=== PATIENT | female | born 1940 | race Caucasian/White ===

== ENCOUNTER → 2016-06-17 | Outpatient (CLI) | payer OTHER ==
[~2016-06-17] MED LIST: ASPI81TA28 PO; ATEN50TA8 PO; BROM0.07 OPL; FRS/40 PO; POTA-335 PO; PRED1SUS3 OPL
[2016-06-17 17:49] LABS: BLOOD UREA NITROGEN 14 mg/dl (7-18); BUN/CREATININE RATIO 16.8 (10-20); CALCIUM 8.9 mg/dl (8.5-10.1); CARBON DIOXIDE 28 mmol/L (21-32); CHLORIDE 105 mmol/L (98-107); CREATININE 0.86 mg/dl (0.60-1.20); GLUCOSE 124 mg/dl (70-99); POTASSIUM 3.7 mmol/L (3.5-5.1); SODIUM 143 mmol/L (136-145)
[2016-06-17 17:54] LABS: URIC ACID 7.2 mg/dl (2.6-7.2)
[2016-06-18 05:53] LABS: ESTIMATED AVERAGE GLUCOSE 128 mg/dl; HA1C FLAG Normal (Normal)
== END | disposition home or self-care (01) ==
LOC: C.LABPVFM 10:55
PROVIDERS: ATTEND Nurse Practitioner
DX: R73.01 Impaired fasting glucose (principal); M10.9 Gout, unspecified

== ENCOUNTER → 2016-12-18 | Outpatient (CLI) | payer OTHER ==
[2016-12-18 13:08] LABS: ESTIMATED AVERAGE GLUCOSE 146 mg/dl; HA1C FLAG Normal (Normal)
[2016-12-18 13:38] LABS: BLOOD UREA NITROGEN 14 mg/dl (7-18); CALCIUM 8.9 mg/dl (8.5-10.1); CARBON DIOXIDE 28 mmol/L (21-32); CHLORIDE 105 mmol/L (98-107); CREATININE 0.75 mg/dl (0.60-1.20); GLUCOSE 143 mg/dl (70-99); POTASSIUM 3.6 mmol/L (3.5-5.1); SODIUM 141 mmol/L (136-145)
[2016-12-18 13:41] LABS: CHOLESTEROL 149 mg/dl (0-200); CHOLESTEROL/HDL RATIO 3.9; HDL CHOLESTEROL 38 mg/dl; LDL CHOLESTEROL CALCULATED 61 mg/dl; TRIGLYCERIDES 251 mg/dl (0-150); VERY LOW DENSITY LIPOPROT CALC 50 mg/dl
== END | disposition home or self-care (01) ==
LOC: C.LABPVFM 10:39
PROVIDERS: ATTEND Nurse Practitioner
DX: I10 Essential (primary) hypertension (principal); R73.01 Impaired fasting glucose

== ENCOUNTER → 2017-05-15 | Outpatient (CLI) | payer OTHER ==
[2017-05-15 13:04] LABS: ESTIMATED AVERAGE GLUCOSE 137 mg/dl; HA1C FLAG Normal (Normal)
[2017-05-15 13:11] LABS: BLOOD UREA NITROGEN 18 mg/dl (7-18); BUN/CREATININE RATIO 23.8 (10-20); CALCIUM 8.9 mg/dl (8.5-10.1); CARBON DIOXIDE 28 mmol/L (21-32); CHLORIDE 102 mmol/L (98-107); CREATININE 0.76 mg/dl (0.60-1.20); GLUCOSE 138 mg/dl (70-99); POTASSIUM 3.5 mmol/L (3.5-5.1); SODIUM 138 mmol/L (136-145)
== END | disposition home or self-care (01) ==
LOC: C.LABPVFM 10:39
PROVIDERS: ATTEND Nurse Practitioner
DX: I10 Essential (primary) hypertension (principal); R73.01 Impaired fasting glucose

== ENCOUNTER → 2017-10-05 | Outpatient (CLI) | payer OTHER ==
[2017-10-05 17:43] LABS: BLOOD UREA NITROGEN 18 mg/dl (7-18); CALCIUM 9.6 mg/dl (8.5-10.1); CARBON DIOXIDE 28 mmol/L (21-32); CREATININE 0.78 mg/dl (0.60-1.20); GLUCOSE 102 mg/dl (70-99); SODIUM 139 mmol/L (136-145)
== END | disposition home or self-care (01) ==
LOC: C.LABPVFM 15:20
PROVIDERS: ATTEND Nurse Practitioner
DX: I10 Essential (primary) hypertension (principal); R73.01 Impaired fasting glucose

== ENCOUNTER 2020-01-09 08:52 | Inpatient (IN) ==
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
[~2020-01-09 08:52] MED LIST changes: -ASPI81TA28 PO; -ATEN50TA8 PO; -BROM0.07 OPL; +CEFAZOLIN 2000MG 2,000 MG/15 ML SYR IV SCH; +CLINDAMYCIN 900 MG in DEXTROSE 5% 50 ML IV SCH; -FRS/40 PO; +LR 15ML/HR IV SCH; +MIDAZOLAM HCL 1 MG/ML 2ML VIAL ONE; -POTA-335 PO; -PRED1SUS3 OPL; +[UNRECOGNIZED DRUG - REMARK] SCH; +fentaNYL citrate 100 MCG/2 ML VIAL ONE
[2020-01-09] MEDS ORDERED: ISOSULFAN BLUE 10 MG/ML VIAL 5 ML ONE (09:32)
[2020-01-09] MEDS ORDERED: PROPOFOL IV EMULSION 10 MG/ML 20 ML VIAL IV ONE (10:43)
[2020-01-09] MEDS ORDERED: LIDOCAINE HCL 2% 2 ML VIAL/AMP(20MG/ML) INFIL ONE (10:43)
--- NOTE | 2020-01-09 10:45 | Nuclear Medicine Report ---
NM sentinel node w breast img LYMPHOSCINTIGRAPHY CLINICAL HISTORY: Bilateral breast cancer. PROCEDURE: RIGHT BREAST: Using standard sterile technique, 4 intradermal and one deep injection of 0.444 mCi of Lymphoseek was placed in the right breast. The patient tolerated the procedure well. There were no immediate compli cations. The patient was subsequently transported to the surgical suite. Images demonstrates 5 foci o f tracer uptake in a periareolar distribution. No uptake within the axilla at time of imaging. LEFT BREAST: Using standard sterile technique, 4 intradermal and one deep injection of 0.447 mCi of Lymphoseek was placed in the left breast. The patient tolerated the procedure well. There were no immediate complic ations. The patient was subsequently transported to the surgical suite. Images demonstrates 5 foci of tracer uptake in a periareolar distribution. No uptake within the axilla at time of imaging. IMPRESSION: 1. Bilateral breast lymphoscintigraphy. 2. Tracer activity within the periareolar distributions are noted bilaterally at time of imaging with out appreciable axillary uptake. ACT 112: Negative or not required by law. Electronically signed by: Naif Phoenix M.D. 01/09/2020 10:44 AM
--- NOTE | 2020-01-09 11:10 | History & Physical Bridge Note ---
Date of Service January 09, 2020 History & Physical Bridge Note I have examined the patient, reviewed the History & Physical and in the interval since the performance of the History & Physical I have noted the following changes of clinical significance: no changes noted
[2020-01-09] MEDS ORDERED: ATROPINE SULFATE 0.1 MG/ML 10ML SYR IV PRN (11:40)
[2020-01-09] MEDS ORDERED: ONDANSETRON INJ 2 MG/ML 2 ML VIAL IV PRN (11:40)
[2020-01-09] MEDS ORDERED: ePHEDrine sulfate 50 MG/ML AMP IV PRN (11:40)
[2020-01-09] MEDS ORDERED: fentaNYL citrate 100 MCG/2 ML VIAL IV PRN (11:40)
[2020-01-09] MEDS ORDERED: fentaNYL citrate 100 MCG/2 ML VIAL ONE ×2 (12:58→14:56)
[2020-01-09] MEDS ORDERED: ONDANSETRON INJ 2 MG/ML 2 ML VIAL ONE (12:58)
[2020-01-09] MEDS ORDERED: BUPIVACAINE 0.5 % 5 MG/1 ML MPF 30ML VIAL ONE (12:58)
[2020-01-09] MEDS ORDERED: GLYCOPYRROLATE 0.2 MG/ML VIAL ONE ×2 (14:27→15:27)
[2020-01-09] MEDS ORDERED: ePHEDrine sulfate 50 MG/ML SYR ONE (15:27)
[2020-01-09] MEDS ORDERED: PHENYLEPHRINE 100MCG/ML 5ML SYR ONE (15:27)
[2020-01-09] MEDS ORDERED: NEOSTIGMINE METHYLSULFATE 5 MG/5 ML SYR ONE (15:27)
--- NOTE | 2020-01-09 16:12 | Post Operative Brief Note ---
Immediate Post Op Note v1 Date of Surgery January 09, 2020 Pre & Post Diagnosis Operation Date: 01/09/20 11:00 Pre-Op Diagnosis: Bilateral Malignant Neoplasm of Breast in Female Post-Op Diagnosis: Bilateral Malignant Neoplasm of Breast in Female I identified the patient and participated in the time-out.: Yes Procedure Operation Date: 01/09/20 11:00 Actual Procedures p Bilateral Mastectomy with Bilateral [place] Lymph Node Biopsy(Bilateral) - Anam Kingsley MD Surgeon Anam Kingsley MD Primary Grade Teacher Ce Schmitz PA-C Estimated Blood Loss 25 Findings Consistent with Post-Op Diagnosis Drains Alejandro-Gabriel Drain (x2)
--- NOTE | 2020-01-09 16:54 | Anesthesiology Progress Note ---
Date of Service January 09, 2020 Anesthesia Post Procedure Vital Signs Vital Signs: Temp Pulse Pulse Resp BP BP Pulse Ox 01/09/20 16:50 74 16 146/64 H 95 01/09/20 16:40 71 16 154/64 H 96 01/09/20 16:30 75 14 147/77 H 98 01/09/20 16:20 36.6 C 78 14 140/84 98 01/09/20 09:49 36.8 C 71 18 169/73 H 95 Transfer of Care Handoff Completed per policy Notes Mental Status: alert / awake / arousable Patient Amnestic to Procedure: Yes Nausea / Vomiting: adequately controlled Pain: adequately controlled Airway Patency, RR, SpO2: stable & adequate BP & HR: stable & adequate Hydration State: stable & adequate Anesthetic Complications: no major complications apparent and Pt Satisfied with anesthetic care
[2020-01-09] MEDS: SODIUM CHLORIDE 0.9% 1000ML 1,000 ML IV SCH (17:45)
[2020-01-09] MEDS: MoRPHine SULFATE 2 MG/ML CARP IV PRN ×2 (17:46→22:34)
--- NOTE | 2020-01-09 19:04 | Operative Report (OR) ---
DATE OF OPERATION: 01/09/2020 PREOPERATIVE DIAGNOSIS: Bilateral carcinoma of the breast. POSTOPERATIVE DIAGNOSIS: Bilateral carcinoma of the breast. PROCEDURE: Bilateral mastectomy with bilateral sentinel lymph node biopsy and excision of the previously biopsied lymph nodes as marked by Piedad Hat Block Maker. SURGEON: Anam Kingsley MD. BROOMCORN SCRAPER: Ce Schmitz PA-C. FINDINGS: The right-sided mass measured 9-10 cm, was about the size of an orange. It was located in the medial aspect of the breast. It was not fixed to the chest wall, although some of the muscle seemed to be adherent to the fascia. I did not see gross extension through the prepectoral fascia, but I did remove some of the muscle with the specimen. There was no evidence of extension through the skin. I did not encounter any gross tumor during the dissection. The left sentinel lymph node had an in-vivo count of 17 and ex-vivo count of 417. There was only 1 lymph node identified and the background counts were 17. The right breast mass was more central. It did not grossly penetrate through the prepectoral fascia and it was not at all encountered during the dissection. The right sentinel lymph node had an in-vivo count of 11 and an ex-vivo count of 557 with background counts of 19. The Piedad Hat Block Maker was used to identify the previously biopsied lymph nodes. They had been negative by FNA. Radiologic tissue evaluation was performed on the 2 Piedad Hat Block Maker lymph nodes and the probes and previously placed clips were within each of those lymph nodes. The sentinel lymph nodes and the previously biopsied lymph nodes were not the same on either side. TECHNIQUE: The patient was sent for administration of the radiotracer in the periareolar area bilaterally. She was then brought to the operating room and placed on the operating table, given general anesthesia. The area was prepped and draped in the usual sterile fashion. The periareolar areas were injected with methylene blue on each side. There was no blue to any of the sentinel lymph nodes, although there were some blue lymph node channels identified during the dissection. The left side was approached first. The incision was sketched on the skin and the superior and inferior portions of the elliptical incision were made. The superior flap was created first maintaining an even thickness to the flap. It was dissected up to the clavicle and extended from the lateral border of the sternum over to the lateral border of the dissection. That then allowed me to enter the axilla. The Neoprobe was used to identify the sentinel lymph node with counts as noted above. Dissection of the axilla was performed bluntly and sharply where appropriate until the sentinel lymph node could be identified. [place] lymph node was away from the surrounding tissues using the LigaSure and sent intact. I then used the Piedad Hat Block Maker probe to identify the lymph node containing the Piedad Hat Block Maker as well as the previously placed clip. This was away from the surrounding tissues using sharp, blunt and LigaSure dissection where appropriate. Hemostasis was obtained using electrocautery at all times. The Neoprobe was then placed back into the axilla and the axilla was investigated. The background counts were below the 10% of the ex-vivo count of the sentinel lymph node. There were no other sentinel lymph nodes identified. The inferior portion of the incision was then made and the inferior flap was created keeping and maintaining an even thickness to the flap. This was carried down to just below the inferior breast crease. The prepectoral fascia was then peeled off the muscle underneath using blunt and cautery dissection where appropriate. Hemostasis was obtained at all times using cautery and the LigaSure. Dissection was carried from medial to lateral and once I identified and peeled the prepectoral fascia off the lateral border of the pectoralis major muscle, I then performed further dissection down along the chest wall and finished the lateral dissection away from the subcutaneous tissue. That breast tissue was marked with a white stitch on the superior edge and a blue stitch on the lateral edge. Meticulous hemostasis was obtained. The wound was irrigated. A separate stab incision was made inferolateral to the incision, through which a 10 mm Alejandro-Gabriel drain was brought in and laid across the chest wall and secured with a 3-0 nylon at the skin level. That wound was closed then with interrupted 2-0 Vicryl in the deep tissues, a running 3-0 Vicryl in the superficial subcutaneous tissue and a 4-0 Monocryl in a subcuticular fashion for the skin. That closure was performed by the physician economist research assistant. While she was performing that closure, I turned my attention to the right side. Because the mass was taking up the medial portion of the breast, I widened the ellipse and that extended from the lateral border of the sternum out to the infraaxillary area in the mid axillary line. The superior and inferior incisions were made and a superior flap was created. The superior flap was kept quite thin in order to assure a negative margin anteriorly, although that incision was made superior to the superior most palpable portion of the mass. That dissection was also carried from the lateral border of the sternum up to the clavicle and then laterally. That then allowed me to enter the axilla on the right. The axilla was entered and the Neoprobe was used to identify the sentinel lymph node with counts as stated above. When it was identified after using blunt and sharp dissection to expose, it was removed using the LigaSure. It was sent intact. I then used the probe from the Piedad Hat Block Maker to identify the previously biopsied lymph node. Once that was identified and grasped, it was using the LigaSure as well. The Neoprobe was then placed back into the axilla. There were no counts greater than 10% of the ex-vivo count of the sentinel lymph node. There were no other sentinel lymph nodes identified. Attention was then turned to completing the mastectomy. The inferior incision was deepened and the inferior flap was created again keeping it thin in order to preserve the anterior margin, especially medially. The dissection was carried down to the anterior rectus fascia. The prepectoral fascia was then peeled off the pectoralis major muscle beginning medially. As I worked laterally and I got to the area of the tumor, I finished the superior, inferior and then the lateral dissection and then peeled some of the muscle up where it seemed to be adherent, although there was no evidence of gross penetration through the fascia. That muscle was adherent; the muscle was divided and it was included en bloc with the specimen. Meticulous hemostasis was then obtained using cautery and the LigaSure. The wound was irrigated and the irrigation removed. A separate stab incision was made inferolateral to the incision, through which a 10 mm Alejandro-Gabriel drain was placed across the chest wall and secured with a 3-0 nylon at the skin level. That wound was then also closed with interrupted 2-0 Vicryl in the deep tissues, running 3-0 Vicryl in the superficial subcutaneous tissue and running 4-0 Monocryl in a subcuticular fashion for the skin. The skin of both incisions was anesthetized with 0.25% Marcaine. The skin was then cleansed, dried, benzoin placed, Steri-Strips applied and a dressing was placed. The estimated blood loss was 25 mL. Sponge, needle and instrument counts were correct prior to closure. The patient tolerated the surgical procedure without complication and was transferred to recovery. The physician economist research assistant was present during the entire case and helped with prepping, draping, retraction, node identification and closure. I attest to the content of the Intraoperative Record and any orders documented therein. Any exceptions are noted below. ADRIANAD
[2020-01-09] MEDS: OXYCODONE/ACETAMINOPHEN 5mg/325mg TAB PO PRN (19:15)
[2020-01-09] MEDS ORDERED: AREDS2 PO SCH (21:00)
[2020-01-10] MEDS: MoRPHine SULFATE 2 MG/ML CARP IV PRN (05:24)
[2020-01-10] MEDS ORDERED: CLINDAMYCIN 900 MG in DEXTROSE 5% 50 ML IV SCH (06:00)
[2020-01-10] MEDS ORDERED: CLINDAMYCIN PHOS 900 MG/6 ML VIAL IV SCH (06:00)
--- NOTE | 2020-01-10 06:37 | Surgery Progress Note ---
Date of Service January 10, 2020 Assessment & Plan (1) Bilateral breast cancer: Status post bilateral mastectomy with bilateral sentinel lymph node biopsy and excision of previously biopsied lymph nodes. Doing well Would keep 1 more night considering still requires IV pain medicine Encouraged ambulation Subjective Postoperative day #1, status post bilateral mastectomy with sentinel lymph node biopsy and excision of Piedad disciplinary hearing officer identified lymph nodes Doing well Having some pain that is controlled with IV analgesics No nausea or vomiting ARLENE on the left had 60 out yesterday and 40 for 1st shift today ARLENE on the right had 75 out yesterday and 30 for 1st shift today Physical Exam Physical Exam: Chest wall dressings are clean and dry No erythema Results & Data Vital Signs (Past 12 Hours) Vital Signs Temp Pulse Pulse Resp BP BP Pulse Ox 01/10/20 06:01 93 01/10/20 05:59 92 01/10/20 05:17 94 01/10/20 03:49 92 01/10/20 03:08 36.8 C 79 18 142/75 H 93 01/10/20 00:34 95 01/10/20 00:25 96 01/09/20 23:30 36.6 C 66 15 144/75 H 94 01/09/20 20:30 36.5 C 76 16 134/70 95 01/09/20 19:31 36.6 C 77 16 150/72 H 96
[2020-01-10] MEDS: METFORMIN HCL 500 MG TAB PO SCH ×2 (08:16→16:18)
[2020-01-10] MEDS: POTASSIUM CHLORIDE 10 MEQ TABCR PO SCH (08:17)
[2020-01-10] MEDS: ATENOLOL 50 MG TABLET PO SCH (08:17)
[2020-01-10] MEDS: FUROSEMIDE 40 MG TAB PO SCH (08:17)
--- NOTE | 2020-01-10 14:45 | Mammography Report ---
SPECIMEN: 01/09/2020 CLINICAL HISTORY: 79-year-old woman with recently diagnosed bilateral breast cancer. She presents for bilateral mastectomy and axillary lymph node sampling. Piedad Cuff Setter Lockstitch reflectors were placed within prev iously biopsied lymph nodes in the right and left axilla. COMPARISON: Comparison is made to exams dated: 01/04/2020 localization, 11/25/2019 fine needle aspirat ion, 11/25/2019 ultrasound biopsy, 11/25/2019 ultrasound biopsy, 11/25/2019 ultrasound biopsy, and 2019 mammogram - [facility]. FINDINGS: Specimen radiographs were performed of the excised right and left axillary lymph nodes. Zaid th specimen radiographs demonstrate lymph nodes, associated orb-shaped biopsy markers and Piedad Cuff Setter Lockstitch reflectors, compatible with successful preoperative localization and subsequent surgical excision. F inal pathology is pending. IMPRESSION: SPECIMEN Bilateral axillary specimen radiographs demonstrate lymph nodes, orb-shaped biopsy markers and Piedad S cout reflectors, compatible with successful preoperative wireless localization and subsequent surgica l excision. Michelle Walker M.D. ay/:01/09/2020 15:04:58 Veterans Services Specialist: OR Technologist, [facility]
[2020-01-10] MEDS: SODIUM CHLORIDE 0.9% 1000ML 1,000 ML IV SCH (19:58)
[2020-01-10] MEDS: OXYCODONE/ACETAMINOPHEN 5mg/325mg TAB PO PRN (23:29)
--- NOTE | 2020-01-11 07:30 | Surgery Progress Note ---
Date of Service January 11, 2020 Assessment & Plan (1) Bilateral breast cancer: Postoperative day #2 status post bilateral mastectomy with bilateral axillary sentinel lymph node biopsy and excision of 2 previously biopsied lymph nodes. Pathology is pending The surgical standpoint doing well. Pain is under better control although not yet ideal. Social service is working on establishing home health nursing for the patient Had decrease in her pulse oximetry last night. Her pulse oximetry has responded to 2 L nasal cannula. I will ask internal medicine to evaluate as well. Subjective Postoperative day #2 status post bilateral mastectomy with bilateral axillary sentinel lymph node biopsy and excision of previously biopsied lymph nodes Pulse oximetry decreased last night. She was placed on initially 4 L of oxygen which brought her saturations into the 90s. She is presently on 2 L nasal cannula and has a pulse oximeter measuring 95% Pain is better controlled Left Alejandro-Gabriel had 105 cc out yesterday and 20 cc over the last shift all serosanguineous Right Alejandro-Garbiel had 90 cc out yesterday and 15 cc out over the last shift all serosanguineous Denies nausea and vomiting Physical Exam Physical Exam: Anterior chest wall: Incisions are clean dry and intact. There is no epidermonecrolysis. There is no erythema. The skin flaps are flat. Respiratory: normal respiratory effort Auscultation: lungs clear to auscultation bilaterally Results & Data Vital Signs (Past 12 Hours) Vital Signs Temp Pulse Resp BP Pulse Ox 01/11/20 05:29 95 01/11/20 05:28 58 L 01/10/20 23:00 94 01/10/20 22:55 36.9 C 81 16 147/72 H 56 L
[2020-01-11] MEDS: ATENOLOL 50 MG TABLET PO SCH (08:39)
[2020-01-11] MEDS: FUROSEMIDE 40 MG TAB PO SCH (08:40)
[2020-01-11] MEDS: POTASSIUM CHLORIDE 10 MEQ TABCR PO SCH (08:40)
[2020-01-11] MEDS: METFORMIN HCL 500 MG TAB PO SCH ×2 (08:40→16:36)
[2020-01-11 09:23] LABS: Basophils # (auto) 0.02 K/uL (0-0.2); Basophils % (auto) 0.2 %; Eosinophils # (auto) 0.06 K/uL (0-0.5); Eosinophils % (auto) 0.5 %; Hematocrit (blood only) 29.1 % (37-47); Hemoglobin 8.8 g/dL (12.0-16.0); Immature Granulocytes # (auto) 0.04 K/uL (0.00-0.02); Immature Granulocytes % (auto) 0.4 %; Lymphocytes # (auto) 1.82 K/uL (1.2-3.4); Lymphocytes % (auto) 16.1 %; Mean Corpuscular Hemoglobin 27.8 pg (25-34); Mean Corpuscular Hgb Conc 30.2 g/dL (32-36); Mean Corpuscular Volume 92.1 fL (80-100); Mean Platelet Volume 9.3 fL (7.4-10.4); Monocytes # (auto) 0.99 K/uL (0.11-0.59); Monocytes % (auto) 8.8 %; Neutrophils # (auto) 8.36 K/uL (1.4-6.5); Platelet Count 235 K/uL (130-400); RDW Coefficient of Variation 16.7 % (11.5-14.5); Red Blood Count 3.16 M/uL (4.2-5.4); White Blood Count 11.29 K/uL (4.8-10.8)
[2020-01-11 09:50] LABS: BUN Creatinine Ratio 16.6 (10-20); Calcium 8.6 mg/dl (8.5-10.1); Creatinine Clr Calc Pharmacy 62.3 ml/min; Est GFR (African American) 79.5; Est GFR (Non-African American) 68.6; Potassium 3.4 mmol/L (3.5-5.1)
--- NOTE | 2020-01-11 10:19 | XRay Report ---
XR chest 2V PA/lateral CLINICAL HISTORY: hypoxia dyspnea COMPARISON STUDY: No previous studies for comparison. FINDINGS: Parenchymal infiltrate left lower lobe. Minimal infiltrative process right pulmonary apex. Lungs otherwise appear clear. IMPRESSION: 1. Infiltrate left lower lobe. 2. Minimal infiltrative change right apex. 3. These findings should be followed to complete resolution ACT 112: Negative or not required by law. The above report was generated using voice recognition software. It may contain grammatical, syntax or spelling errors. Electronically signed by: Anam Farley M.D. 01/11/2020 10:17 AM
[2020-01-11] MEDS ORDERED: POTASSIUM CHLORIDE 20 MEQ TABCR PO ONE (11:00)
[2020-01-11] MEDS ORDERED: PIPERACILL/TAZOBAC CONSULT ACTIVE PRN (11:52)
[2020-01-11] MEDS ORDERED: SODIUM CHLORIDE 0.65% NA SOLN 45 ML (OCEAN) PRN (12:04)
[2020-01-11] MEDS ORDERED: PIPERACILLIN/TAZOBACTAM 4.5 GM in DEXTROSE 5% 100 ML IV ONE (12:15)
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
[2020-01-11] MEDS ORDERED: FEXOFENADINE HCL 180 MG TAB PO PRN (16:29)
[2020-01-11] MEDS: SODIUM CHLORIDE 0.9% 1000ML 1,000 ML IV SCH (18:37)
[2020-01-11] MEDS: PIPERACILLIN/TAZOBACTAM 4.5 GM in DEXTROSE 5% 100 ML IV SCH (18:38)
[2020-01-11] MEDS: MIRTAZAPINE TAB 15 MG TAB PO SCH (20:08)
[2020-01-12] MEDS: PIPERACILLIN/TAZOBACTAM 4.5 GM in DEXTROSE 5% 100 ML IV SCH (01:48)
[2020-01-12 06:48] LABS: Basophils # (auto) 0.03 K/uL (0-0.2); Basophils % (auto) 0.3 %; Eosinophils # (auto) 0.18 K/uL (0-0.5); Eosinophils % (auto) 1.7 %; Hematocrit (blood only) 29.1 % (37-47); Hemoglobin 8.8 g/dL (12.0-16.0); Immature Granulocytes # (auto) 0.04 K/uL (0.00-0.02); Immature Granulocytes % (auto) 0.4 %; Lymphocytes # (auto) 1.49 K/uL (1.2-3.4); Lymphocytes % (auto) 14.4 %; Mean Corpuscular Hemoglobin 27.6 pg (25-34); Mean Corpuscular Hgb Conc 30.2 g/dL (32-36); Mean Corpuscular Volume 91.2 fL (80-100); Mean Platelet Volume 9.7 fL (7.4-10.4); Monocytes # (auto) 1.07 K/uL (0.11-0.59); Monocytes % (auto) 10.4 %; Neutrophils # (auto) 7.51 K/uL (1.4-6.5); Neutrophils % (auto) 72.8 %; Platelet Count 242 K/uL (130-400); RDW Coefficient of Variation 16.2 % (11.5-14.5); RDW Standard Deviation 54.4 fL (36.4-46.3); Red Blood Count 3.19 M/uL (4.2-5.4); White Blood Count 10.32 K/uL (4.8-10.8)
[2020-01-12 07:22] LABS: BUN Creatinine Ratio 21.5 (10-20); Calcium 8.4 mg/dl (8.5-10.1); Creatinine Clr Calc Pharmacy 72.1 ml/min; Est GFR (African American) 94.8; Est GFR (Non-African American) 81.8; Potassium 3.2 mmol/L (3.5-5.1)
--- NOTE | 2020-01-12 07:32 | Surgery Progress Note ---
Date of Service January 12, 2020 Assessment & Plan (1) Bilateral breast cancer: Postoperative day #3 status post bilateral mastectomy with bilateral axillary sentinel lymph node biopsy and removal of previously biopsied lymph nodes Appreciate internal medicine help Incisions are healing well and drainage is decreasing H&H stable today Will order PT OT Continue antibiotics Will need to continue with O2 by nasal cannula until pulse oximetry will be able to be maintained without supplemental oxygen DVT prophylaxis with pneumatic compression stockings for now considering H&H Awaiting home health evaluation Subjective Postoperative day #3 status post bilateral mastectomy with bilateral axillary sentinel lymph node biopsy and excision of previously biopsied lymph nodes. Pulse oximetry still drops without oxygen and she is now on 3 L nasal cannula with most recent pulse ox of 95% Chest x-ray noted with left lower lobe infiltrate, has been placed on Zosyn Passing flatus but has not had bowel movement No abdominal pain Surgical discomfort is under good control now Appreciate internal medicine help Left ARLENE had 55 cc out yesterday and 10 cc out last shift, all serosanguineous Right ARLENE had 55 cc out yesterday and 10 cc out last shift, all serosanguineous Results & Data Vital Signs (Past 12 Hours) Vital Signs Temp Pulse Resp BP Pulse Ox 01/12/20 07:21 37.4 C 73 16 133/66 96 01/11/20 23:38 95 01/11/20 23:36 36.5 C 70 16 130/71 89 L 01/11/20 20:05 94 Laboratory Results 01/12/20 01/12/20 01/11/20 Range/Units 06:09 06:09 10:55 WBC 10.32 (4.8-10.8) K/uL RBC 3.19 L (4.2-5.4) M/uL Hgb 8.8 L (12.0-16.0) g/dL Hct 29.1 L (37-47) % MCV 91.2 (80-100) fL MCH 27.6 (25-34) pg MCHC 30.2 L (32-36) g/dL RDW Std Deviation 54.4 H (36.4-46.3) fL RDW Coeff of Rose 16.2 H (11.5-14.5) % Plt Count 242 (130-400) K/uL MPV 9.7 (7.4-10.4) fL Immature Gran % (Auto) 0.4 % Neut % (Auto) 72.8 % Lymph % (Auto) 14.4 % [place] % (Auto) 10.4 % Eos % (Auto) 1.7 % Baso % (Auto) 0.3 % Neut # (Auto) 7.51 H (1.4-6.5) K/uL Lymph # (Auto) 1.49 (1.2-3.4) K/uL [place] # (Auto) 1.07 H (0.11-0.59) K/uL Eos # (Auto) 0.18 (0-0.5) K/uL Baso # (Auto) 0.03 (0-0.2) K/uL Immature Gran # (Auto) 0.04 H (0.00-0.02) K/uL Sodium 141 (136-145) mmol/L Potassium 3.2 L (3.5-5.1) mmol/L Chloride 106 (98-107) mmol/L Carbon Dioxide 30 (21-32) mmol/L Anion Gap 5.0 (3-11) BUN 15 (7-18) mg/dl Creatinine 0.70 (0.6-1.2) mg/dl Est Cr Clr Drug Dosing 72.1 ml/min Est GFR ( Amer) 94.8 Est GFR (Non-Af Amer) 81.8 BUN/Creatinine Ratio 21.5 H (10-20) Glucose 138 H (70-99) mg/dl Calcium 8.4 L (8.5-10.1) mg/dl Magnesium (1.8-2.4) mg/dl Procalcitonin 0.08 (0-0.5) ng/ml 01/11/20 01/11/20 01/11/20 Range/Units 10:55 09:10 09:10 WBC 11.29 H (4.8-10.8) K/uL RBC 3.16 L (4.2-5.4) M/uL Hgb 8.8 L (12.0-16.0) g/dL Hct 29.1 L (37-47) % MCV 92.1 (80-100) fL MCH 27.8 (25-34) pg MCHC 30.2 L (32-36) g/dL RDW Std Deviation 56.0 H (36.4-46.3) fL RDW Coeff of Rose 16.7 H (11.5-14.5) % Plt Count 235 (130-400) K/uL MPV 9.3 (7.4-10.4) fL Immature Gran % (Auto) 0.4 % Neut % (Auto) 74.0 % Lymph % (Auto) 16.1 % [place] % (Auto) 8.8 % Eos % (Auto) 0.5 % Baso % (Auto) 0.2 % Neut # (Auto) 8.36 H (1.4-6.5) K/uL Lymph # (Auto) 1.82 (1.2-3.4) K/uL [place] # (Auto) 0.99 H (0.11-0.59) K/uL Eos # (Auto) 0.06 (0-0.5) K/uL Baso # (Auto) 0.02 (0-0.2) K/uL Immature Gran # (Auto) 0.04 H (0.00-0.02) K/uL Sodium 138 (136-145) mmol/L Potassium 3.4 L (3.5-5.1) mmol/L Chloride 104 (98-107) mmol/L Carbon Dioxide 29 (21-32) mmol/L Anion Gap 5.0 (3-11) BUN 14 (7-18) mg/dl Creatinine 0.81 (0.6-1.2) mg/dl Est Cr Clr Drug Dosing 62.3 ml/min Est GFR ( Amer) 79.5 Est GFR (Non-Af Amer) 68.6 BUN/Creatinine Ratio 16.6 (10-20) Glucose 154 H (70-99) mg/dl Calcium 8.6 (8.5-10.1) mg/dl Magnesium 1.8 (1.8-2.4) mg/dl Procalcitonin (0-0.5) ng/ml
[2020-01-12] MEDS: POTASSIUM CHLORIDE 10 MEQ TABCR PO SCH (08:49)
[2020-01-12] MEDS: METFORMIN HCL 500 MG TAB PO SCH ×2 (08:49→17:56)
[2020-01-12] MEDS: FUROSEMIDE 40 MG TAB PO SCH (08:49)
[2020-01-12] MEDS: allopurinoL 100 MG TAB PO SCH (08:50)
[2020-01-12] MEDS: SERTRALINE HCL 50 MG TABLET PO SCH (08:50)
[2020-01-12] MEDS: ATENOLOL 50 MG TABLET PO SCH (08:50)
[2020-01-12] MEDS: CHOLECALCIFEROL 1,000 UNITS 25 MCG TAB PO SCH (08:50)
[2020-01-12] MEDS ORDERED: POTASSIUM CHLORIDE 20 MEQ TABCR PO STA (09:33)
[2020-01-12] MEDS: AMPICILLIN/SULBACTAM SOD 3,000 MG in 0.9 % SODIUM CHLORIDE 100 ML IV SCH ×3 (11:07→21:31)
[2020-01-12] MEDS ORDERED: ALBUTEROL 0.083% NEBU SOLN 3 ML VIAL NEB PRN (12:22)
--- NOTE | 2020-01-12 14:21 | Hospitalist Progress Note ---
Date of Service January 12, 2020 Assessment & Plan (1) Bilateral breast cancer: * POD #1 s/p bilateral mastectomy with sentinel lymph node biopsy with Dr. Kingsley on 01/09. EBL 25cc. * H/h unchanged, 8.8/29.1 * PT/OT/Pain management/DVT prophylaxis per primary team * CBC in AM (2) Pneumonia: * Patient with episode of hypoxia overnight requiring O2, prompting hospitalist consult -- initially thought to be atelectasis given surgery and lack of deep breathing, but obtained CXR showing LLL infiltrate as well as infiltrative changes to R apex. WBC improved to 10.3k on AM labs. * Sputum culture GS with many WBC, many Gram + Cocci, Few Gram + bacilli, negative bacilli, few yeast. Culture preliminary with moderate normal joshua, final report to follow * Supplemental O2 as needed -- was still requiring 3L this morning via NC for O2 sat 96% (had been incorrectly documented) * Started on Zosyn IV -- switched to Unasyn and will discharge on Augmentin when ready for discharge, possible tomorrow * Incentive spirometer ordered and encouraged. Patient states she has been utilizing this * Will obtain overnight pulse ox to see if she will need nocturnal O2 at discharge as she did have desat event overnight * Wean O2 as able --> worked with PT and was able to be weaned off O2. Currently 92% on RA * ALbuterol neb prn SOB/wheezing (3) Hypoxia: * See above (4) Hypertension: * Chronic. Stable, currently 142/74, likely some component of pain * Continue home atenolol 50mg, lasix 40mg (5) Gout: * Chronic. No signs exacerbation at this time * Continue home allopurinol (6) Diabetes mellitus: * Chronic. Most recent A1c 6.5 * Continue Metformin 500mg BID * Morning glucose on BMP 138. * Continue to monitor (7) Depression: * Chronic. Continue home sertraline (8) Allergic rhinitis: * Continue home susanne (9) Hypokalemia: * K 3.2 -- ordered 40 MEQ today * Repeat labs in AM (10) DVT prophylaxis: * Per primary -- SCDs * Would consider chemoproph Thank you for allowing hospitalist service to participate in the care of Mrs. Vargas. Medicine will follow along. Admission and Anticipated Discharge Date Admission Date: January 09, 2020 Subjective Patient evaluated this morning. Still with pain with movement to axillae. Denies shortness of breath at rest but does have some with ambulation when getting up to use the bathroom. Discussed continuing antibiotics. She states she was able to produce a small amount of dunn sputum that she was able to provide to nursing and send to lab. Denies any wheezing. Discussed that we will do an overnight test to see if she will require oxygen at night at discharge. Fevers chills, fever, abdominal pain, n/v/d, dysuria at this time. Questions/chills addressed at this time. Review of Systems Review of Systems: All systems reviewed & are unremarkable except as noted in HPI & below Physical Exam Constitutional: WD/WN, vitals as above + obese; no acute distress Eyes: PERRL, conjunctivae normal, anicteric sclerae Neck: trachea midline, no thyromegaly Respiratory: normal respiratory effort and able to speak in complete sentences; no respiratory distress and no labored breathing Auscultation: + diminished lung sounds Cardiovascular: RRR, no murmur, no edema Chest (Breasts): Additional Comments: dressing to bilateral breast c/d/i ARLENE drains with bloody drainage Gastrointestinal (Abdomen): normal bowel sounds, soft, nontender, no hepatosplenomegaly Musculoskeletal: no cyanosis or clubbing, extremities motor strength 5/5 Skin: no rashes, warm and dry Neurologic: patellar DTR's 2+ bilat, sensation intact Psychiatric: A+Ox3, euthymic affect Lymphatic: no cervical or axillary lymphadenopathy Results & Data Results & Data ([facility]) Vital Signs (Past 12 Hours) Vital Signs Temp Pulse Resp BP Pulse Ox 01/12/20 14:04 93 01/12/20 08:47 73 136/66 01/12/20 07:21 37.4 C 73 16 133/66 96 Laboratory Results 01/12/20 01/12/20 Range/Units 06:09 06:09 WBC 10.32 (4.8-10.8) K/uL RBC 3.19 L (4.2-5.4) M/uL Hgb 8.8 L (12.0-16.0) g/dL Hct 29.1 L (37-47) % MCV 91.2 (80-100) fL MCH 27.6 (25-34) pg MCHC 30.2 L (32-36) g/dL RDW Std Deviation 54.4 H (36.4-46.3) fL RDW Coeff of Rose 16.2 H (11.5-14.5) % Plt Count 242 (130-400) K/uL MPV 9.7 (7.4-10.4) fL Immature Gran % (Auto) 0.4 % Neut % (Auto) 72.8 % Lymph % (Auto) 14.4 % [place] % (Auto) 10.4 % Eos % (Auto) 1.7 % Baso % (Auto) 0.3 % Neut # (Auto) 7.51 H (1.4-6.5) K/uL Lymph # (Auto) 1.49 (1.2-3.4) K/uL [place] # (Auto) 1.07 H (0.11-0.59) K/uL Eos # (Auto) 0.18 (0-0.5) K/uL Baso # (Auto) 0.03 (0-0.2) K/uL Immature Gran # (Auto) 0.04 H (0.00-0.02) K/uL Sodium 141 (136-145) mmol/L Potassium 3.2 L (3.5-5.1) mmol/L Chloride 106 (98-107) mmol/L Carbon Dioxide 30 (21-32) mmol/L Anion Gap 5.0 (3-11) BUN 15 (7-18) mg/dl Creatinine 0.70 (0.6-1.2) mg/dl Est Cr Clr Drug Dosing 72.1 ml/min Est GFR ( Amer) 94.8 Est GFR (Non-Af Amer) 81.8 BUN/Creatinine Ratio 21.5 H (10-20) Glucose 138 H (70-99) mg/dl Calcium 8.4 L (8.5-10.1) mg/dl PG Care Time/CCT Total # of Minutes Spent Total Time Spent with Patient: Total time spent is greater than 50% in coordination of care (as documented) at patient's floor/unit and/or counseling patient: Coding Level of Care Code 80891 Subseq Hosp Care Lvl 3 Diagnoses Bilateral breast cancer C50.911; C50.912 Pneumonia J18.9 Hypoxia R09.02 Hypertension I10 Gout M10.9 Diabetes mellitus E11.9 Depression F32.9 Allergic rhinitis J30.9 Hypokalemia E87.6 DVT prophylaxis Z29.9
[2020-01-12] MEDS: OXYCODONE/ACETAMINOPHEN 5mg/325mg TAB PO PRN (19:38)
[2020-01-12] MEDS: MIRTAZAPINE TAB 15 MG TAB PO SCH (21:31)
[2020-01-13] MEDS: AMPICILLIN/SULBACTAM SOD 3,000 MG in 0.9 % SODIUM CHLORIDE 100 ML IV SCH ×4 (04:18→21:54)
[2020-01-13] MEDS: OXYCODONE/ACETAMINOPHEN 5mg/325mg TAB PO PRN ×2 (05:08→14:06)
[2020-01-13 06:08] LABS: Hematocrit (blood only) 31.8 % (37-47); Hemoglobin 9.3 g/dL (12.0-16.0); Mean Corpuscular Hemoglobin 27.3 pg (25-34); Mean Corpuscular Hgb Conc 29.2 g/dL (32-36); Mean Corpuscular Volume 93.3 fL (80-100); Mean Platelet Volume 9.7 fL (7.4-10.4); Platelet Count 306 K/uL (130-400); RDW Coefficient of Variation 16.2 % (11.5-14.5); RDW Standard Deviation 55.1 fL (36.4-46.3); Red Blood Count 3.41 M/uL (4.2-5.4); White Blood Count 11.13 K/uL (4.8-10.8)
[2020-01-13 06:40] LABS: BUN Creatinine Ratio 19.5 (10-20); Calcium 8.8 mg/dl (8.5-10.1); Creatinine Clr Calc Pharmacy 60.1 ml/min; Est GFR (African American) 76.1; Est GFR (Non-African American) 65.6; Potassium 3.1 mmol/L (3.5-5.1)
--- NOTE | 2020-01-13 08:02 | Hospitalist Progress Note ---
Date of Service January 13, 2020 Assessment & Plan (1) Bilateral breast cancer: * POD #3 s/p bilateral mastectomy with sentinel lymph node biopsy with Dr. Kingsley on 01/09. EBL 25cc. * H/h stable, improved to 9.3/31.8 * PT/OT/Pain management/DVT prophylaxis per primary team (2) Abnormal CT of the chest: * Concerning for malignancy * 4.5 x 3.1cm mixed solid/cystic RUL lesion, favoring primary bronchogenic carcinoma as well as small b/l effusions (too small to tap) as well as 2cm density NELLI and rec'd follow up for further evaluation * Consulted pulmonary -- appreciate assistance * Rec'd PET scan outpatient to look for FGD uptake and if so, should be considered for needle biopsy percutaneously and follow up with pulm based on those results (3) Pneumonia: * Patient with episode of hypoxia overnight requiring O2, prompting hospitalist consult -- initially thought to be atelectasis given surgery and lack of deep breathing, but obtained CXR showing LLL infiltrate as well as infiltrative changes to R apex. * Sputum culture GS with many WBC, many Gram + Cocci, Few Gram + bacilli, negative bacilli, few yeast. Culture preliminary with moderate normal joshua. * Supplemental O2 as needed * Was placed on ZOsyn, changed to Unasyn but could consider discontinue as likely related to above * Incentive spirometer ordered and encouraged. Patient states she has been utilizing this * Overnight pulse ox completed with desaturation down to low of 32%. Requiring anywhere from 2-6L. Will need overnight O2. * 2 step without desaturation * Had previously been screened for COVID-19- Negative. * Albuterol prn * Requiring up to 5L this AM --> currently 93% on RA (4) Hypoxia: * See above (5) Hypertension: * Chronic. Stable, currently 145/64 * Continue home atenolol 50mg, lasix 40mg (6) Gout: * Chronic. No signs exacerbation at this time * Continue home allopurinol (7) Diabetes mellitus: * Chronic. Most recent A1c 6.5 * Continue Metformin 500mg BID * Morning glucose on BMP 112. * Continue to monitor (8) Depression: * Chronic. Continue home sertraline (9) Allergic rhinitis: * Continue home susanne (10) Hypokalemia: * K 3.1 -- ordered 40 MEQ * Repeat labs in AM (11) DVT prophylaxis: * Per primary -- SCDs * I added Lovenox SQ given presumed malignancy Thank you for allowing hospitalist service to participate in the care of Mrs. Vargas. Medicine will follow along. Admission and Anticipated Discharge Date Admission Date: January 09, 2020 Subjective Patient evaluated this morning. Feeling well. Slightly fatigued. Pain controlled. Some increased pain to upper right back when she sits back in recliner. Eating/drinking without difficulty. Denies shortness of breath, chest pain, abdominal pain, nausea, vomiting. No oncology or previous work-up for metastatic disease prior to mastectomy. No chemo. States she saw Dr. Kingsley this morning who was impressed with her progress. Discussed findings of CT and that recommendations for PET scan at discharge to asses given areas of concern unable to be gotten to via EBUS per pulmonary service. She does note history of skin ca to eyelid, forehead and left nose in the past that have been excised. Patient demonstrates understanding. Questions/concerns addressed at this time. Review of Systems Review of Systems: All systems reviewed & are unremarkable except as noted in HPI & below Physical Exam Constitutional: WD/WN, vitals as above + obese; no acute distress Eyes: PERRL, conjunctivae normal, anicteric sclerae ENMT: scar L nasal fold Neck: trachea midline, no thyromegaly Respiratory: normal respiratory effort and able to speak in complete sentences; no respiratory distress and no labored breathing Auscultation: + diminished lung sounds Cardiovascular: Rate/Rhythm: regular rate and regular rhythm Vessels: no JVD Extremities: + edema (trace b/l LE) Chest (Breasts): Additional Comments: dressing to bilateral breast c/d/i ARLENE drains with bloody drainage Gastrointestinal (Abdomen): normal bowel sounds, soft, nontender, no hepatosplenomegaly Musculoskeletal: no cyanosis or clubbing, extremities motor strength 5/5 Skin: warm, dry large fluid collection to area of R scapula. Moveable. Non-tender to palpation. No visible opening or portal of entry Neurologic: patellar DTR's 2+ bilat, sensation intact Psychiatric: A+Ox3, euthymic affect Lymphatic: no cervical or axillary lymphadenopathy Results & Data Results & Data ([facility]) Vital Signs (Past 12 Hours) Vital Signs Temp Pulse Pulse Pulse Pulse Resp BP 01/13/20 07:16 36.5 C 65 16 01/13/20 03:24 62 62 01/12/20 22:53 36.5 C 75 16 136/74 01/12/20 22:17 73 01/12/20 21:07 76 BP Pulse Ox Pulse Ox Pulse Ox 01/13/20 07:16 136/76 96 01/13/20 03:24 89 L 84 L 01/12/20 22:53 97 01/12/20 22:17 93 01/12/20 21:07 89 L Laboratory Results 01/13/20 01/13/20 01/12/20 Range/Units 05:15 05:15 20:18 WBC 11.13 H (4.8-10.8) K/uL RBC 3.41 L (4.2-5.4) M/uL Hgb 9.3 L (12.0-16.0) g/dL Hct 31.8 L (37-47) % MCV 93.3 (80-100) fL MCH 27.3 (25-34) pg MCHC 29.2 L (32-36) g/dL RDW Std Deviation 55.1 H (36.4-46.3) fL RDW Coeff of Rose 16.2 H (11.5-14.5) % Plt Count 306 (130-400) K/uL MPV 9.7 (7.4-10.4) fL Sodium 144 (136-145) mmol/L Potassium 3.1 L (3.5-5.1) mmol/L Chloride 106 (98-107) mmol/L Carbon Dioxide 32 (21-32) mmol/L Anion Gap 6.0 (3-11) BUN 16 (7-18) mg/dl Creatinine 0.84 (0.6-1.2) mg/dl Est Cr Clr Drug Dosing 60.1 ml/min Est GFR ( Amer) 76.1 Est GFR (Non-Af Amer) 65.6 BUN/Creatinine Ratio 19.5 (10-20) Glucose 112 H (70-99) mg/dl POC Glucose 146 H (70-99) mg/dl Calcium 8.8 (8.5-10.1) mg/dl Diagnostic Findings CXR IMPRESSION: Stable bilateral parenchymal infiltrates. No major change from the prior study. CT Chest w/o IMPRESSION: 1. Postoperative findings from bilateral mastectomies as well as postoperative findings within each axilla. Prominent left axillary and right supraclavicular lymph nodes. 2. Findings consistent with extensive sclerotic skeletal metastases. 3. 4.5 x 3.1 cm mixed solid and cystic right upper lobe lesion. This favors primary bronchogenic carcinoma such as adenocarcinoma. An infectious process is within the differential but considered much less likely. Pulmonary consultation might be considered. 4. Small bilateral pleural effusions with subpleural opacities consistent with atelectasis. No consolidation to suggest pneumonia. 5. 2 cm round density within the left upper lobe, immediately anterior to the left pulmonary artery. Mild adjacent ground glass opacity. This is nonspecific and could reflect a partially opacified pneumatocele. A small lung abscess is within the differential although the extent of associated groundglass opacity is less than expected. Alternatively, this could reflect an enlarged lymph node with displaced bronchus. A short-term follow-up CT of the chest with contrast could be obtained for further evaluation. PG Care Time/CCT Total # of Minutes Spent Total Time Spent with Patient: Total time spent is greater than 50% in coordination of care (as documented) at patient's floor/unit and/or counseling patient: Coding Level of Care Code 61087 Subseq Hosp Care Lvl 3 Diagnoses Bilateral breast cancer C50.911; C50.[address] of the chest R93.89 Pneumonia J18.9 Hypoxia R09.02 Hypertension I10 Gout M10.9 Diabetes mellitus E11.9 Depression F32.9 Allergic rhinitis J30.9 Hypokalemia E87.6 DVT prophylaxis Z29.9
[2020-01-13] MEDS ORDERED: POTASSIUM CHLORIDE 20 MEQ TABCR PO ONE (08:15)
[2020-01-13] MEDS: FUROSEMIDE 40 MG TAB PO SCH (08:43)
[2020-01-13] MEDS: SERTRALINE HCL 50 MG TABLET PO SCH (08:43)
[2020-01-13] MEDS: POTASSIUM CHLORIDE 10 MEQ TABCR PO SCH (08:43)
[2020-01-13] MEDS: ATENOLOL 50 MG TABLET PO SCH (08:43)
[2020-01-13] MEDS: METFORMIN HCL 500 MG TAB PO SCH ×2 (08:43→16:46)
[2020-01-13] MEDS: CHOLECALCIFEROL 1,000 UNITS 25 MCG TAB PO SCH (08:43)
[2020-01-13] MEDS: allopurinoL 100 MG TAB PO SCH (08:44)
--- NOTE | 2020-01-13 09:35 | XRay Report ---
XR chest 1V portable CLINICAL HISTORY: hypoxia, pneumonia follow up pneumonitis COMPARISON STUDY: 01/11/2020 FINDINGS: Infiltrate left base considered unchanged. Minimal infiltrative change right apex also unch anged. Lungs otherwise appear clear. IMPRESSION: Stable bilateral parenchymal infiltrates. No major change from the prior study. ACT 112: Negative or not required by law. The above report was generated using voice recognition software. It may contain grammatical, syntax or spelling errors. Electronically signed by: Anam Farley M.D. 01/13/2020 9:34 AM
--- NOTE | 2020-01-13 11:14 | CT Scan Report ---
CT OF THE CHEST WITHOUT IV CONTRAST CLINICAL HISTORY: Hypoxia. Pneumonia. History of breast cancer. COMPARISON STUDY: Chest radiograph January 13, 2020 at 9:[address] DOSE: 845.50 mGy.cm TECHNIQUE: Axial images of the chest were obtained without IV contrast. Images were reviewed in the axial, sagittal, and coronal planes. IV contrast was not administered for this examination. Automat ed exposure control was utilized for the study. A dose lowering technique was utilized adhering to t he principles of ALARA. FINDINGS: The heart is mildly enlarged. There is no pericardial effusion. Mildly enlarged right supr aclavicular lymph node measures 1 cm in short axis diameter. This is shown on image 60 of 296. There are prominent left axillary lymph nodes that measure up to 0.9 cm in short axis diameter. There are p ostoperative findings within each axilla and findings consistent with bilateral mastectomies. There i s soft tissue gas which is expected. Bilateral surgical drains are in place. No drainable fluid colle ction is identified. There are trace bilateral pleural effusions with associated airspace opacities c onsistent with atelectasis. There is no consolidation to suggest pneumonia. Note is made of a mixed s olid and cystic right upper lobe lesion. This measures 4.5 x 3.1 cm. The solid component measures 2.6 cm. A few tiny additional pulmonary nodules are present. Note is made of a 2 cm round density within the left upper lobe on image 125 of 296. This is immediately anterior to the left pulmonary artery. This appears to be within the lung parenchyma and has a possible air-fluid level versus displaced bro nchus. This finding is low attenuation and is suboptimally assessed on this unenhanced exam. Extensiv e blastic lesions are noted throughout the visualized skeletal structures consistent with blastic met astases. Upper abdomen is unremarkable. IMPRESSION: 1. Postoperative findings from bilateral mastectomies as well as postoperative findings within each a xilla. Prominent left axillary and right supraclavicular lymph nodes. 2. Findings consistent with extensive sclerotic skeletal metastases. 3. 4.5 x 3.1 cm mixed solid and cystic right upper lobe lesion. This favors primary bronchogenic carc inoma such as adenocarcinoma. An infectious process is within the differential but considered much le ss likely. Pulmonary consultation might be considered. 4. Small bilateral pleural effusions with subpleural opacities consistent with atelectasis. No consol idation to suggest pneumonia. 5. 2 cm round density within the left upper lobe, immediately anterior to the left pulmonary artery. Mild adjacent ground glass opacity. This is nonspecific and could reflect a partially opacified pneum atocele. A small lung abscess is within the differential although the extent of associated groundglas s opacity is less than expected. Alternatively, this could reflect an enlarged lymph node with displa suzanne bronchus. A short-term follow-up CT of the chest with contrast could be obtained for further eval uation. ACT 112: Positive. There are findings on this exam that require communication between the performing entity and the patient following Patient Test Result Information Act ([place] Act 112) guidelines. Electronically signed by: Gerald Krishnamurthy M.D. 01/13/2020 11:13 AM
[2020-01-13] MEDS: ENOXAPARIN INJ 40 MG/0.4 ML SYR SQ SCH (13:27)
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
[2020-01-13] MEDS: MIRTAZAPINE TAB 15 MG TAB PO SCH (21:54)
[2020-01-14] MEDS: AMPICILLIN/SULBACTAM SOD 3,000 MG in 0.9 % SODIUM CHLORIDE 100 ML IV SCH ×3 (04:24→16:33)
[2020-01-14] MEDS: OXYCODONE/ACETAMINOPHEN 5mg/325mg TAB PO PRN (04:27)
[2020-01-14] MEDS: METFORMIN HCL 500 MG TAB PO SCH ×2 (08:36→16:33)
[2020-01-14 09:02] LABS: Basophils # (auto) 0.01 K/uL (0-0.2); Basophils % (auto) 0.1 %; Eosinophils # (auto) 0.25 K/uL (0-0.5); Eosinophils % (auto) 2.6 %; Hematocrit (blood only) 29.1 % (37-47); Immature Granulocytes # (auto) 0.05 K/uL (0.00-0.02); Immature Granulocytes % (auto) 0.5 %; Lymphocytes # (auto) 1.84 K/uL (1.2-3.4); Lymphocytes % (auto) 19.2 %; Mean Corpuscular Hgb Conc 30.9 g/dL (32-36); Mean Corpuscular Volume 90.7 fL (80-100); Mean Platelet Volume 9.2 fL (7.4-10.4); Monocytes # (auto) 1.02 K/uL (0.11-0.59); Monocytes % (auto) 10.6 %; Neutrophils # (auto) 6.41 K/uL (1.4-6.5); Platelet Count 285 K/uL (130-400); RDW Coefficient of Variation 16.2 % (11.5-14.5); RDW Standard Deviation 53.4 fL (36.4-46.3); Red Blood Count 3.21 M/uL (4.2-5.4); White Blood Count 9.58 K/uL (4.8-10.8)
[2020-01-14 09:28] LABS: BUN Creatinine Ratio 21.2 (10-20); Creatinine Clr Calc Pharmacy 80.1 ml/min; Est GFR (African American) 98.2; Est GFR (Non-African American) 84.7; Magnesium 1.5 mg/dl (1.8-2.4); Potassium 3.1 mmol/L (3.5-5.1)
[2020-01-14] MEDS ORDERED: POTASSIUM CHLORIDE 20 MEQ TABCR PO STA (09:39)
[2020-01-14] MEDS: FUROSEMIDE 40 MG TAB PO SCH (09:48)
[2020-01-14] MEDS: ATENOLOL 50 MG TABLET PO SCH (09:48)
[2020-01-14] MEDS: POTASSIUM CHLORIDE 10 MEQ TABCR PO SCH (09:48)
[2020-01-14] MEDS: CHOLECALCIFEROL 1,000 UNITS 25 MCG TAB PO SCH (09:49)
[2020-01-14] MEDS: ENOXAPARIN INJ 40 MG/0.4 ML SYR SQ SCH (09:50)
[2020-01-14] MEDS: allopurinoL 100 MG TAB PO SCH (09:50)
[2020-01-14] MEDS: SERTRALINE HCL 50 MG TABLET PO SCH (09:50)
[2020-01-14] MEDS: MAGNESIUM SULFATE / D5W 1 GM/100 ML BAG IV SCH ×3 (10:33→14:33)
--- NOTE | 2020-01-14 12:36 | Surgery Progress Note ---
Date of Service January 14, 2020 Assessment & Plan (1) Hypoxia: Seems to be nocturnal. Appreciate internal medicine efforts in obtaining nighttime oxygen for her Plan is to do an ambulatory pulse ox if that is adequate then she will be able to go home with nighttime oxygen (2) Bilateral breast cancer: Postoperative day #5 status post bilateral mastectomy with bilateral sentinel lymph node biopsy and excision of previously biopsied lymph nodes Her CT scan demonstrated a mass in the right upper lobe although in discussion with radiology it is unclear as to whether this is a minute but radiologically appears to be more consistent with a primary lung cancer. She will need to follow-up with pulmonary as an outpatient and she will need a visit with oncology as an outpatient as well. If the ambulatory pulse oximetry is adequate she can go home today. She is confident with how to manage the drains. She will need to be seen in our office next week for a follow-up and possible drain removal. Subjective Postoperative day #5 status post bilateral mastectomy with sentinel lymph node bilateral biopsy and excision of previously biopsied lymph nodes She is feeling quite well Having very little pain ARLENE drainages are decreasing. Has not had shortness of breath Has been ambulating without oxygen She is aware of the CT of the chest findings Physical Exam Physical Exam: Incisions are clean, dry and intact Respiratory: normal respiratory effort, lungs clear to auscultation no respiratory distress Results & Data Vital Signs (Past 12 Hours) Vital Signs Temp Pulse Pulse Resp BP Pulse Ox Pulse Ox 01/14/20 07:44 36.4 C L 57 L 18 129/73 92 01/14/20 05:40 62 93 01/14/20 01:18 61 89 L
--- NOTE | 2020-01-14 13:29 | Hospitalist Progress Note ---
Date of Service January 14, 2020 Assessment & Plan (1) Bilateral breast cancer: * POD #4 s/p bilateral mastectomy with sentinel lymph node biopsy with Dr. Kingsley on 01/09. EBL 25cc. * H/h stable, 03/13 * PT/OT/Pain management/DVT prophylaxis per primary team (2) Abnormal CT of the chest: * Concerning for malignancy * 4.5 x 3.1cm mixed solid/cystic RUL lesion, favoring primary bronchogenic carcinoma as well as small b/l effusions (too small to tap) as well as 2cm density NELLI and rec'd follow up for further evaluation * Consulted pulmonary * Rec'd PET scan outpatient to look for FGD uptake and if so, should be considered for needle biopsy percutaneously and follow up with pulm based on those results * Having nurse navigator call on thursday to set up appointment (3) Pneumonia: * Patient with episode of hypoxia overnight requiring O2, prompting hospitalist consult -- initially thought to be atelectasis given surgery and lack of deep breathing, but obtained CXR showing LLL infiltrate as well as infiltrative changes to R apex. * Sputum culture GS with many WBC, many Gram + Cocci, Few Gram + bacilli, negative bacilli, few yeast. Final with moderate normal joshua. * Was placed on ZOsyn, changed to Unasyn and discharged on Augmentin * Incentive spirometer ordered and encouraged. Patient states she has been utilizing this and is 92% on RA * Overnight pulse ox showed O2 req up to 6L -- set up for home O2 at night * 2 step without need with ambulation * Would likely benefit from CPAP in future but would req sleep study -- defer to PCP * Ambulated in the halls this morning with aide with lowest recorded O2 92% * Denies sob (4) Hypoxia: * See above (5) Hypertension: * Chronic. Stable, currently 151/71 * Continue home atenolol 50mg, lasix 40mg (6) Gout: * Chronic. No signs exacerbation at this time * Continue home allopurinol (7) Diabetes mellitus: * Chronic. Most recent A1c 6.5 * Continue Metformin 500mg BID (8) Depression: * Chronic. Continue home sertraline (9) Allergic rhinitis: * Continue home susanne (10) Hypokalemia: * K 3.1 -- ordered 40 MEQ * Ordered mag level --> low at 1.5 and ordered 3gm IV. * Repeat labs this afternoon to ensure resolution prior to discharge (11) DVT prophylaxis: * Per primary -- SCDs * Lovenox SQ given presumed malignancy Thank you for allowing hospitalist service to participate in the care of Mrs. Vargas. Medicine will sign off at this time. Please call with any questions/concerns. Admission and Anticipated Discharge Date Admission Date: January 09, 2020 Subjective Patient evaluated this morning and afternoon. Pain improved. Still discomfort to b/l axillae with movement but moving around much better today. Discussed ambulating in the halls again today to see how O2 saturation maintains and that if she is ok we will proceed with overnight O2 at this time and that she should ideally be evaluated for CPAP. No fever,chills,cp,sob,abd pain, n/v/d, dysuria at this time. Hopeful for discharge this afternoon per primary service. Review of Systems Review of Systems: All systems reviewed & are unremarkable except as noted in HPI & below Physical Exam Constitutional: WD/WN, vitals as above + obese; no acute distress Eyes: PERRL, conjunctivae normal, anicteric sclerae Neck: trachea midline, no thyromegaly Respiratory: normal respiratory effort and able to speak in complete sentences; no respiratory distress and no labored breathing Auscultation: + diminished lung sounds Cardiovascular: Rate/Rhythm: regular rate and regular rhythm Vessels: no JVD Extremities: + edema (trace b/l LE) Chest (Breasts): Additional Comments: incisions clean ARLENE drains with serosanguineous drainage, approx 10-15cc to R and L drains Gastrointestinal (Abdomen): normal bowel sounds, soft, nontender, no hepatosplenomegaly Musculoskeletal: Head/Neck/Chest: normocephalic and head atraumatic moves all extremities Skin: warm, dry Neurologic: patellar DTR's 2+ bilat, sensation intact Psychiatric: A+Ox3, euthymic affect Lymphatic: no cervical or axillary lymphadenopathy Results & Data Results & Data ([facility]) Vital Signs (Past 12 Hours) Vital Signs Temp Pulse Pulse Resp BP Pulse Ox Pulse Ox 01/14/20 07:44 36.4 C L 57 L 18 129/73 92 01/14/20 05:40 62 93 Laboratory Results 01/14/20 01/14/20 Range/Units 08:39 08:39 WBC 9.58 (4.8-10.8) K/uL RBC 3.21 L (4.2-5.4) M/uL Hgb 9.0 L (12.0-16.0) g/dL Hct 29.1 L (37-47) % MCV 90.7 (80-100) fL MCH 28.0 (25-34) pg MCHC 30.9 L (32-36) g/dL RDW Std Deviation 53.4 H (36.4-46.3) fL RDW Coeff of Rose 16.2 H (11.5-14.5) % Plt Count 285 (130-400) K/uL MPV 9.2 (7.4-10.4) fL Immature Gran % (Auto) 0.5 % Neut % (Auto) 67.0 % Lymph % (Auto) 19.2 % Beadle % (Auto) 10.6 % Eos % (Auto) 2.6 % Baso % (Auto) 0.1 % Neut # (Auto) 6.41 (1.4-6.5) K/uL Lymph # (Auto) 1.84 (1.2-3.4) K/uL Beadle # (Auto) 1.02 H (0.11-0.59) K/uL Eos # (Auto) 0.25 (0-0.5) K/uL Baso # (Auto) 0.01 (0-0.2) K/uL Immature Gran # (Auto) 0.05 H (0.00-0.02) K/uL Sodium 143 (136-145) mmol/L Potassium 3.1 L (3.5-5.1) mmol/L Chloride 105 (98-107) mmol/L Carbon Dioxide 32 (21-32) mmol/L Anion Gap 6.0 (3-11) BUN 13 (7-18) mg/dl Creatinine 0.63 (0.6-1.2) mg/dl Est Cr Clr Drug Dosing 80.1 ml/min Est GFR ( Amer) 98.2 Est GFR (Non-Af Amer) 84.7 BUN/Creatinine Ratio 21.2 H (10-20) Glucose 102 H (70-99) mg/dl Calcium 9.0 (8.5-10.1) mg/dl Magnesium 1.5 L (1.8-2.4) mg/dl PG Care Time/CCT Total # of Minutes Spent Total Time Spent with Patient: Total time spent is greater than 50% in coordination of care (as documented) at patient's floor/unit and/or counseling patient: Coding Level of Care Code 96250 Subseq Hosp Care Lvl 3 Diagnoses Bilateral breast cancer C50.911; C50.[address] of the chest R93.89 Pneumonia J18.9 Hypoxia R09.02 Hypertension I10 Gout M10.9 Diabetes mellitus E11.9 Depression F32.9 Allergic rhinitis J30.9 Hypokalemia E87.6 DVT prophylaxis Z29.9
[2020-01-14 17:42] LABS: BUN Creatinine Ratio 16.8 (10-20); Calcium 8.6 mg/dl (8.5-10.1); Creatinine Clr Calc Pharmacy 68.2 ml/min; Est GFR (African American) 88.7; Est GFR (Non-African American) 76.5
[2020-01-14] MEDS ORDERED: POTASSIUM CHLORIDE 20 MEQ TABCR PO ONE (18:15)
--- NOTE | 2020-02-15 11:18 | Discharge Summary ---
Date of Service February 15, 2020 Admission HPI Per Admitting Provider Rhonda presented to [facility] for elective outpatient bilateral mastectomy with bilateral axillary sentinel lymph node biopsy for bilateral breast carcinoma by Dr. Kingsley. 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 Kingsley. Patient tolerated procedure well and was transferred to recovery room and then to medical/surgical floor for postoperative care. She was kept overnight for pain management. Diet advanced as tolerated. POD # 1 vitals stable, afebrile. Patient was kept overnight again for pain control. Evening of POD # 1 patient developed nocturnal hypoxia and medicine was consulted for management. POD # 2 H&H was 8.8/29.1, but hemodynamically stable. Hypoxia originally felt to be atelectasis postop but CXR showed LLL infiltrate and Right apex infiltrative changes. She was started on IV Zosyn and sputum culture was obtained for possible pneumonia. POD # 3 she was stable from operative standpoint with better pain management and incisions healing well. Her overnight pulse ox showed desaturations as low as 32% and required 2-6 liters of oxygen via nasal cannula. She was able to work with PT on room air. Hypoxia seemed to be more during the evening/night. Sputum gram stain showed gram + cocci, + bacilli, and - bacilli, her antibiotics were switched to Unasyn. A CT chest was ordered given persistent hypoxia which showed findings consistent with extensive sclerotic skeletal metastases. and a 4.5 x 3.1 cm mixed solid and cystic right upper lobe lesion. This favors primary bronchogenic carcinoma such as adenocarcinoma. An infectious process is within the differential but considered much less likely. POD # 4 pulmonology consulted in which a outpatient PET scan was recommended given inability for biopsy via bronchoscopy and to determine further treatment. POD # 5 patient was doing well from surgical standpoint, she passed her 2 step test for hypoxia and she felt she did not need home health for drain management. She was discharged home on POD # 5 with close follow-up in surgical office as well as needing outpatient follow-up with pulmonology and oncology. (2) Hypoxia: hospital course as detailed above (3) Abnormal CT of the chest: hospital course as detailed above Total Time Total Time Spent Total Time Spent (In Minutes): 30 Total Time Includes: Examination of the Patient, Discharge Planning, Medication Reconciliation and Communication With Other Providers Discharge Plan Discharge Items Patient Disposition: Home - Self-Care Reason For Visit: Bilateral Malignant Neoplasm of Breast in Female Discharge Diagnosis: Bilateral breast cancer Activity: As commented below Non-emergency contact: Surgeon Call non-emergency contact if: your temperature is above 101.5 and your wound has increased redness Follow-up/Referrals: Theodora Ty CRNP [Primary Care Provider] - Diet: Carb Consistent or DM2 Addtl Attending Provider Instructions: Empty and record the time of the amount of drainage from each of the drains. Keep the recordings for the left and right drains separate. You can replace the gauze with the mastectomy bra to try to keep the incisions from becoming irritated You will have to sponge bath until the drains are removed. You can use Tylenol 650 mg every 4-6 hours for pain. On Thursday, call [phone] for an appointment for the end of next week You should continue on Augmentin (an antibiotic) to complete 7 day course of treatment. You have three more days. This should be taken as follows: * Augmentin 875mg by mouth twice daily for the next three days. You were found to have low oxygen saturations at night and have been set up with oxygen to wear at night at a rate of 6L/min via nasal cannula. They will meet you at home tonight. A test was performed to see if you need oxygen with ambulation and that showed that you do not need any at this time. You should follow up with your PCP and may need referral for a sleep study and may benefit from CPAP at night. Overnight sleep studies are not done in the hospital. CT of your chest showed multiple areas concerning for malignancy. Pulmonology was consulted and recommend a PET scan outpatient and will need follow up and possible biopsy for further evaluation. Please keep all follow up appointments as scheduled. Follow up with your PCP in the next week. Instructions regarding your most recent mastectomy per Dr. Kingsley. You will be sent on 40meq KCl potassium daily instead of your 10meq prior to admission and should have repeat labs drawn on thursday to ensure resolution. This may be due to your home diuretic, furosemide, and you may need increased replacement based on your repeat labs. Pending Studies at Discharge: No Stand-Alone Forms: My [facility], Smoking Cessation Medications and DC Order Prescriptions: New amoxicillin-pot clavulanate [Augmentin] 875-125 mg tablet 1 tab PO BID Qty: 6 RF: 0 Continued metformin 500 mg tablet 500 mg PO BID Qty: 180 RF: 3 tramadol 50 mg tablet 50 mg PO BID PRN (Reason: pain) Qty: 20 RF: 0 cholecalciferol (vitamin D3) 5,000 unit capsule 5,000 units PO QAM RF: 0 azelastine 137 mcg (0.1 %) aerosol,spray 1 - 2 sprays intranasal BID PRN (Reason: congestion) Qty: 1 RF: 0 fexofenadine 180 mg tablet 180 mg PO DAILY PRN (Reason: Congestion) Qty: 30 RF: 0 Areds2 capsule 1 cap PO BID RF: 0 furosemide 40 mg tablet 40 mg PO QAM RF: 0 silver sulfadiazine [Silvadene] 1 % cream 1 appln TOP BID PRN (Reason: burn) RF: 0 allopurinol 100 mg tablet 100 mg PO QAM RF: 0 mirtazapine [Remeron] 15 mg tablet 15 mg PO HS RF: 0 sertraline 50 mg tablet 50 mg PO QAM RF: 0 atenolol 50 mg tablet 50 mg PO QAM RF: 0 acetaminophen [Tylenol Extra Strength] 500 mg Tablet 500 mg PO Q6H PRN (Reason: Pain) RF: 0 Discontinued potassium chloride 10 mEq tablet extended release 10 meq PO DAILY RF: 0 Discharge Orders: Discharge Order (Routine); Ordered 01/14/20 Ordered By: Anam Mohan/Other Patient Handouts: Managing Type 2 Diabetes Admission Data Admit Date/Time: 01/09/20 16:23 Attending Provider: Anam Kingsley Admit Provider: Anam Kingsley Primary Care Provider: Theodora Ty Other Providers: Homar Trimble ; Frederic Hsieh ; Gian Henriquez Other Interventions: Discharge Summary Assessment (RN) Last Done: 01/14/20 18:52
== END 2020-01-14 20:00 | disposition home or self-care (01) | DRG 579 ==
LOC: ASU 08:52 → 3N 16:23

== ENCOUNTER 2022-02-03 12:41 | Observation (INO) ==
--- NOTE | 2022-02-03 13:30 | XRay Report ---
XR chest 2V PA/lateral HISTORY: 81 years-old Female illness acute illness in a patient with history of renal calculi COMPARISON: CT 12/30/2021, chest radiograph 12/02/2021 TECHNIQUE: PA and lateral views of the chest. FINDINGS: Cardiomediastinal and hilar silhouettes are within normal limits. Irregular right apical opacity jenny uring up to approximately 5 cm is similar to the prior study. No pneumothorax, pleural effusion, new airspace consolidation or overt pulmonary edema. Degenerative changes of the shoulders and spine. Ext ensive osteoblastic skeletal metastasis redemonstrated. IMPRESSION: 1. No acute process. 2. Masslike opacity of the right lung apex is unchanged from 12/30/2021 which may represent fibrosis. 3. Extensive osteoblastic skeletal metastasis redemonstrated. No acute pathologic fracture identified . ACT 112: Negative or not required by law. The above report was generated using voice recognition software. It may contain grammatical, syntax o r spelling errors. Electronically signed by: Esequiel Phoenix M.D. 02/03/2022 1:29 PM
[2022-02-03] MEDS ORDERED: FAMOTIDINE 20MG IV PUSH 20 MG/5 ML SYR IV STA (14:25)
[2022-02-03] MEDS: SODIUM CHLORIDE 0.9% 1000ML 1,000 ML IV SCH ×2 (15:09→21:06)
[2022-02-03 15:12] LABS: Basophils # (auto) 0.01 K/uL (0-0.2); Basophils % (auto) 0.2 %; Eosinophils # (auto) 0.03 K/uL (0-0.50); Eosinophils % (auto) 0.5 %; Hematocrit (blood only) 31.2 % (34.1-44.9); Hemoglobin 10.4 g/dl (12.0-16.0); Immature Granulocytes # (auto) 0.08 K/uL (0.00-0.02); Immature Granulocytes % (auto) 1.2 %; Lymphocytes # (auto) 0.46 K/uL (1.2-3.4); Mean Corpuscular Hemoglobin 32.9 pg (25.0-34.0); Mean Corpuscular Hgb Conc 33.3 g/dL (32.0-36.0); Mean Corpuscular Volume 98.7 fL (80.0-100.0); Mean Platelet Volume 10.1 fL (9.4-12.3); Monocytes # (auto) 0.31 K/uL (0.24-0.82); Monocytes % (auto) 4.7 %; Neutrophils % (auto) 86.4 %; Platelet Count 239 K/uL (130-400); RDW Coefficient of Variation 16.3 % (11.5-14.5); RDW Standard Deviation 59.7 fL (36.4-46.3); Red Blood Count 3.16 M/uL (3.93-5.22); White Blood Count 6.59 K/ul (4.8-10.8)
[2022-02-03 15:39] LABS: Alanine Aminotransferase 6 U/L (7-52); Albumin Globulin Ratio 1.3 (0.9-2); Albumin Level 3.7 gm/dl (3.4-5.0); Alkaline Phosphatase 60 U/L (34-104); Anion Gap 10 (3-11); Aspartate Aminotransferase 13 U/L (13-39); Bilirubin,Total 0.6 mg/dl (0.2-1.0); Blood Urea Nitrogen 33 mg/dl (6-23); Calcium 8.1 mg/dl (8.5-10.1); Carbon Dioxide 21 mmol/L (21-32); Chloride 108 mmol/L (98-107); Est GFR (African American) 33.2 ml/min; Est GFR (Non-African American) 28.6 ml/min; Globulin 2.9 gm/dl (2.5-4.0); Glucose 113 mg/dl (70-99(Fasting)); Magnesium 1.1 mg/dl (1.7-2.4); Potassium 3.7 mmol/L (3.5-5.1); Sodium 139 mmol/L (136-145); Total Protein 6.6 gm/dl (6.0-8.3); Troponin I High Sensitivity 8.3 pg/ml (0-14)
--- NOTE | 2022-02-03 15:50 | Emergency Department Note ---
History of Present Illness General Chief complaint: Nausea Stated complaint: NAUSEA,VOMITING Time Seen by Provider: 02/03/22 14:00 Source: patient Mode of arrival: wheelchair Limitations: no limitations History of Present Illness Provider complaint: Weakness, dehydration, nausea and vomiting Onset (ago): week(s) This is an 81-year-old female presents emergency department complaining of jaziel ral weeks of worsening weakness, concern for dehydration, and recurrent nausea and vomiting. Patient states she began having the symptoms following urologic surgery for kidney stones and recurrent kidney infections. She states she initially had lithotripsy as well as placement of a stent. She states a couple weeks later the stent was removed and she has had worsening symptoms since then. She states she feels very weak and tired. She is concerned she is dehydrated or could have a complication related to the recent procedures. She denies fevers, however states she is always cold. She states every time she tries to eat or drink something several minutes after this she will vomit it back up. She denies any hematemesis. She states last week she was started on antibiotics for COVID. She states she has had diarrhea over the last week also. She denies any black or bloody stools. Pt seen during a time of high acuity and national emergency pandemic while wearing PPE. Home Medications Medication Instructions Recorded Confirmed Type azelastine 137 mcg (0.1 %) nasal 1 - 2 sprays intranasal BID PRN 02/22/19 History spray aerosol congestion #1 mL fexofenadine 180 mg tablet 180 mg PO DAILY PRN Congestion #30 02/22/19 01/27/22 History tabs cholecalciferol (vitamin D3) 125 5,000 units PO QAM 04/18/19 01/27/22 History mcg (5,000 unit) capsule acetaminophen 500 mg tablet 500 mg PO Q6H PRN Pain 01/09/20 01/27/22 History (Tylenol Extra Strength) tramadol 50 mg tablet 50 mg PO BID PRN pain #20 tabs 03/06/20 01/27/22 Rx aspirin 81 mg tablet,delayed 81 mg PO QAM 08/27/20 01/27/22 History release fulvestrant 250 mg/5 mL 500 mg IM .COMPLEX 01/29/21 01/27/22 History intramuscular syringe (Faslodex) palbociclib 100 mg capsule 100 mg PO QAM 01/29/21 01/27/22 History (Ibrance) atenolol 50 mg tablet 50 mg PO QAM #90 tabs 04/30/21 01/27/22 Rx furosemide 40 mg tablet 40 mg PO QAM #90 tabs 04/30/21 01/27/22 Rx metformin 500 mg tablet 500 mg PO BID #180 tabs 04/30/21 01/27/22 Rx sertraline 50 mg tablet 50 mg PO QAM #90 tabs 04/30/21 01/27/22 Rx allopurinol 100 mg tablet 100 mg PO QAM #90 tabs 07/29/21 01/27/22 Rx gabapentin 100 mg capsule 100 mg PO BID #180 caps 09/16/21 01/27/22 Rx Magic Mouthwash 300 mL mouthwash 5 ml mucous membrane .COMPLEX PRN 12/03/21 01/27/22 History mouth sores ferrous sulfate 325 mg (65 mg 325 mg PO QAM 12/03/21 01/27/22 History iron) tablet,delayed release mirtazapine 15 mg tablet (Remeron) 15 mg PO HS PRN Sleep 12/03/21 01/27/22 History potassium chloride 10 mEq 10 meq PO QAM 12/03/21 01/27/22 History tablet,extended release doxycycline monohydrate 100 mg 100 mg PO BID #14 caps 01/27/22 01/27/22 Rx capsule tamsulosin 0.4 mg capsule (Flomax) 0.4 mg PO QAM #90 caps 01/27/22 01/27/22 Rx Allergies Allergy/AdvReac Type Severity Reaction Status Date / Time cefuroxime Allergy Intermediate petechaie Verified 01/27/22 11:24 influenza virus vaccine, AdvReac Intermediate swollen Verified 01/27/22 11:24 specific arm for months tetanus toxoid, adsorbed AdvReac Intermediate swollen Verified 01/27/22 11:24 arm for months Past Med/Surg History Medical History Allergic rhinitis Anemia Chronic anemia warranting intermittent PRBCs per heme/onc ([facility]) Scheduled for 2U PRBCs 12/04/21 @ [facility] (last hemoglobin 12/02 was 7.6) Chronic back pain CKD (chronic kidney disease) Depression Diabetes mellitus Gout Hypertension Insomnia Kidney calculi Lung cancer 2019-CHEMOTHERAPY AND RADIATION Macular degeneration Metastatic breast cancer Migraine HX On home oxygen therapy 1L HS via NC Ulnar neuropathy Right arm S/P surgery 2019 Surgical History H/O bilateral mastectomy 2019 History of appendectomy History of breast biopsy Multiple History of bronchoscopy History of cataract surgery BOTH EYES 2014 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 Brother No problems noted. Sister No problems noted. Sister No problems noted. Son No problems noted. 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 How many Children do You have: 1 Other Information That Helps Us Care for You: No Feels Safe at Home: Yes Safety Concerns: Feels Safe At This Time Childhood Exposure to Second-Hand Smoke: Yes caffeine: Yes during the past year weight has: decreased > 10 lbs Dental Care, Regularly: No Physical Activity Frequency: Does not Exercise Seatbelt Use: sometimes Sunscreen Use: No Assistive Devices: Oxygen - at Night and Walker Review of Systems A total of 10 systems reviewed and were otherwise negative All systems reviewed & are unremarkable except as noted in HPI & below Physical Exam Vital Signs Vital Signs - 24 hr 02/03/22 12:45 Temperature 36.8 C Temperature Source Temporal Artery Scan Pulse Rate 72 Respiratory Rate 18 Respiratory Effort / Characteristics Non-Labored Spontaneous Respiratory Depth Normal Respiratory Pattern Regular Blood Pressure 144/73 H Blood Pressure Mean 96 Blood Pressure Position Sitting Pulse Oximetry 97 Oxygen Delivery Method Room Air Sepsis Recent Fever Within 48 Hours No Sepsis New/Unexplained Change in Mental Status No Sepsis Action Taken by Nursing No Action Required GENERAL: alert, ill appearing, well nourished, no distress, non-toxic EYE EXAM: normal conjunctiva, PERRL and EOM's grossly intact OROPHARYNX: no exudate, no erythema, lips, buccal mucosa, and tongue normal and mucous membranes are moist NECK: supple, no nuchal rigidity, no adenopathy, non-tender LUNGS: Clear to auscultation. Normal chest wall mechanics, no w/r/r HEART: no murmurs, S1 normal and S2 normal ABDOMEN: abdomen soft, non-tender, normo-active bowel sounds, no masses, no rebound or guarding. BACK: Back is symmetrical on inspection and there is no deformity, no midline tenderness, no CVA tenderness. SKIN: no rashes and no bruising UPPER EXTREMITIES: upper extremities are grossly normal. FROM, nml pulses b/l. LOWER EXTREMITIES: No pitting edema. FROM, nml pulses b/l. NEURO EXAM: Normal sensorium, cranial nerves II-XII grossly intact, normal speech, diffuse generalized weakness, no ataxia, gross sensation intact. Course Administered Medications Atenolol (Atenolol 50 Mg Tablet) 50 mg PO QAM [facility] Stop: 03/06/22 08:59 Last Admin: 02/04/22 07:46 Dose: 50 mg Documented By: ISABELA Gabapentin (Gabapentin 100 Mg Cap) 100 mg PO BID [facility] Stop: 03/05/22 21:00 Last Admin: 02/04/22 07:46 Dose: 100 mg Documented By: Admin: 02/03/22 21:49 Dose: 100 mg Documented By: HALINA Lactated Ringer's (Lr) 1,000 mls @ 80 mls/hr IV .[id number] [facility] Stop: 03/06/22 02:14 Last Admin: 02/04/22 13:44 Dose: 80 mls/hr Documented By: Infusion: 02/04/22 13:44 Dose: 80 mls/hr Documented By: Admin: 02/04/22 03:02 Dose: 80 mls/hr Documented By: HALINA Magnesium Oxide (Magnesium Oxide 400 Mg Tab) 400 mg PO BID [facility] Stop: 03/05/22 21:00 Last Admin: 02/04/22 07:46 Dose: 400 mg Documented By: Admin: 02/03/22 21:49 Dose: 400 mg Documented By: HALINA Sertraline HCl (Sertraline Hcl 50 Mg Tablet) 50 mg PO QAM [facility] Stop: 03/06/22 08:59 Last Admin: 02/04/22 07:47 Dose: 50 mg Documented By: ISABELA Tamsulosin HCl (Tamsulosin Hcl 0.4 Mg Cap) [facility] [place]: 03/06/22 08:59 Last Admin: 02/04/22 07:47 Dose: 0.4 mg Documented By: ISABELA Vitamin D (Cholecalciferol 5,000 Units 125 Mcg Tab) 5,000 [facility] [place] Stop: 03/06/22 08:59 Last Admin: 02/04/22 07:47 Dose: 5,000 units Documented By: ISABELA Discontinued Medications Enoxaparin Sodium (Enoxaparin Inj 30 Mg/0.3 Ml Syr) 30 mg SQ HS [facility] Stop: 03/05/22 21:29 Last Admin: 02/03/22 21:50 Dose: 30 mg Documented By: HALINA Sodium Chloride (Nss 1000ml) 1,000 mls @ 250 mls/hr IV .Q4H [facility] Stop: 03/05/22 14:29 Last Admin: 02/03/22 21:06 Dose: Not Given Documented By: Infusion: 02/03/22 19:48 Dose: 0 mls/hr Documented By: Admin: 02/03/22 15:09 Dose: 250 mls/hr Documented By: KEKE Famotidine (Pepcid 20mg Iv Push) 20 mg in 5 mls @ 2.5 mls/min IV NOW STA Stop: 02/03/22 14:26 Last Admin: 02/03/22 15:09 Dose: 2.5 mls/min Documented By: KEKE Magnesium Sulfate/Dextrose (Magnesium Sulfate / D5w) 1 gm in 100 mls @ 100 mls/hr IV Q1H [facility] Stop: 02/03/22 17:42 Last Infusion: 02/03/22 19:48 Dose: 0 mls/hr Documented By: Admin: 02/03/22 18:24 Dose: 100 mls/hr Documented By: Infusion: 02/03/22 17:40 Dose: 0 mls/hr Documented By: Admin: 02/03/22 16:23 Dose: 100 mls/hr Documented By: SHERITA Magnesium Sulfate/Dextrose (Magnesium Sulfate / D5w) 1 gm in 100 mls @ 50 mls/hr IV Q2H [facility] Stop: 02/04/22 01:00 Last Infusion: 02/04/22 01:53 Dose: 0 mls/hr Documented By: Admin: 02/03/22 23:52 Dose: 50 mls/hr Documented By: Infusion: 02/03/22 23:50 Dose: 50 mls/hr Documented By: Admin: 02/03/22 21:50 Dose: 50 mls/hr Documented By: HALINA Lactated Ringer's (Lr) 1,000 mls @ 200 mls/hr IV .Q5H [facility] Stop: 02/04/22 02:00 Last Infusion: 02/04/22 03:10 Dose: 0 mls/hr Documented By: Admin: 02/03/22 21:50 Dose: 200 mls/hr Documented By: HALINA Miscellaneous (Patient's Height &/Or Weight Needed) 1 each N/A ONE STA Stop: 02/03/22 21:06 Last Admin: 02/03/22 21:49 Dose: 1 each Documented By: HALINA Medical Decision Making Differential Diagnosis Differential: Gastroenteritis, Food Borne, Esophageal Perforation, , Electrolyte Abnormality, Dehydration, Intraabdominal Infection, UTI/Pyelonephritis, Bowel Obstruction, Biliary Pathology, amongst other pathology entertained. Medical Records Attestation: I reviewed the patient's medical records. Home Medications Current Medication List: was personally reviewed by me Laboratory Data Attestation: I reviewed the patient's lab results. Result diagrams: 02/04/22 08:16 02/04/22 08:16 Lab Results 02/03/22 02/03/22 02/03/22 Range/Units 14:50 14:50 14:50 WBC 6.59 (4.8-10.8) K/ul RBC 3.16 L (3.93-5.22) M/uL Hgb 10.4 L (12.0-16.0) g/dl Hct 31.2 L (34.1-44.9) % MCV 98.7 (80.0-100.0) fL MCH 32.9 (25.0-34.0) pg MCHC 33.3 (32.0-36.0) g/dL RDW Std Deviation 59.7 H (36.4-46.3) fL RDW Coeff of Rose 16.3 H (11.5-14.5) % Plt Count 239 (130-400) K/uL MPV 10.1 (9.4-12.3) fL Immature Gran % (Auto) 1.2 % Neut % (Auto) 86.4 % Lymph % (Auto) 7.0 % Lamb % (Auto) 4.7 % Eos % (Auto) 0.5 % Baso % (Auto) 0.2 % Neut # (Auto) 5.70 (1.4-6.5) K/uL Lymph # (Auto) 0.46 L (1.2-3.4) K/uL Lamb # (Auto) 0.31 (0.24-0.82) K/uL Eos # (Auto) 0.03 (0-0.50) K/uL Baso # (Auto) 0.01 (0-0.2) K/uL Immature Gran # (Auto) 0.08 H (0.00-0.02) K/uL Sodium 139 (136-145) mmol/L Potassium 3.7 (3.5-5.1) mmol/L Chloride 108 H (98-107) mmol/L Carbon Dioxide 21 (21-32) mmol/L Anion Gap 10 (3-11) BUN 33 H (6-23) mg/dl Creatinine 1.65 H (0.6-1.2) mg/dl Est Cr Clr Drug Dosing Not Reportable Est GFR ( Amer) 33.2 ml/min Est GFR (Non-Af Amer) 28.6 ml/min BUN/Creatinine Ratio 20.0 (10-20) Glucose 113 H (70-99(Fasting)) mg/dl Calcium 8.1 L (8.5-10.1) mg/dl Magnesium 1.1 L (1.7-2.4) mg/dl Total Bilirubin 0.6 (0.2-1.0) mg/dl AST 13 (13-39) U/L ALT 6 L (7-52) U/L Alkaline Phosphatase 60 (34-104) U/L Troponin I High Sens 8.3 (0-14) pg/ml Total Protein 6.6 (6.0-8.3) gm/dl Albumin 3.7 (3.4-5.0) gm/dl Globulin 2.9 (2.5-4.0) gm/dl Albumin/Globulin Ratio 1.3 (0.9-2) Triglycerides 177 H (0-150) mg/dl Lipase 33 (11-82) U/L SARS-CoV-2 (PCR) (Negative) Influenza Type A (PCR) (Neg) Influenza Type B (PCR) (Neg) RSV (RT-PCR) (Neg) 02/03/22 Range/Units 16:20 WBC (4.8-10.8) K/ul RBC (3.93-5.22) M/uL Hgb (12.0-16.0) g/dl Hct (34.1-44.9) % MCV (80.0-100.0) fL MCH (25.0-34.0) pg MCHC (32.0-36.0) g/dL RDW Std Deviation (36.4-46.3) fL RDW Coeff of Rose (11.5-14.5) % Plt Count (130-400) K/uL MPV (9.4-12.3) fL Immature Gran % (Auto) % Neut % (Auto) % Lymph % (Auto) % Lamb % (Auto) % Eos % (Auto) % Baso % (Auto) % Neut # (Auto) (1.4-6.5) K/uL Lymph # (Auto) (1.2-3.4) K/uL Lamb # (Auto) (0.24-0.82) K/uL Eos # (Auto) (0-0.50) K/uL Baso # (Auto) (0-0.2) K/uL Immature Gran # (Auto) (0.00-0.02) K/uL Sodium (136-145) mmol/L Potassium (3.5-5.1) mmol/L Chloride (98-107) mmol/L Carbon Dioxide (21-32) mmol/L Anion Gap (3-11) BUN (6-23) mg/dl Creatinine (0.6-1.2) mg/dl Est Cr Clr Drug Dosing Est GFR ( Amer) ml/min Est GFR (Non-Af Amer) ml/min BUN/Creatinine Ratio (10-20) Glucose (70-99(Fasting)) mg/dl Calcium (8.5-10.1) mg/dl Magnesium (1.7-2.4) mg/dl Total Bilirubin (0.2-1.0) mg/dl AST (13-39) U/L ALT (7-52) U/L Alkaline Phosphatase (34-104) U/L Troponin I High Sens (0-14) pg/ml Total Protein (6.0-8.3) gm/dl Albumin (3.4-5.0) gm/dl Globulin (2.5-4.0) gm/dl Albumin/Globulin Ratio (0.9-2) Triglycerides (0-150) mg/dl Lipase (11-82) U/L SARS-CoV-2 (PCR) POSITIVE A* (Negative) Influenza Type A (PCR) Negative (Neg) Influenza Type B (PCR) Negative (Neg) RSV (RT-PCR) Negative (Neg) Imaging Data Radiologist's Impression: Chest X-Ray 02/03/22 12:53 XR chest 2V PA/lateral HISTORY: 81 years-old Female illness acute illness in a patient with history of renal calculi COMPARISON: CT 12/30/2021, chest radiograph 12/02/2021 TECHNIQUE: PA and lateral views of the chest. FINDINGS: Cardiomediastinal and hilar silhouettes are within normal limits. Irregular right apical opacity measuring up to approximately 5 cm is similar to the prior study. No pneumothorax, pleural effusion, new airspace consolidation or overt pulmonary edema. Degenerative changes of the shoulders and spine. Extensive osteoblastic skeletal metastasis redemonstrated. IMPRESSION: 1. No acute process. 2. Masslike opacity of the right lung apex is unchanged from 12/30/2021 which may represent fibrosis. 3. Extensive osteoblastic skeletal metastasis redemonstrated. No acute pathologic fracture identified. ACT 112: Negative or not required by law. The above report was generated using voice recognition software. It may contain grammatical, syntax or spelling errors. Electronically signed by: Esequiel Phoenix M.D. 02/03/2022 1:29 PM ABDOMEN AND PELVIS CT WITHOUT CONTRAST CT DOSE: 379.68 mGy.cm HISTORY: Lymphoma. weakness, s/p stone/stenting 3 weeks ago TECHNIQUE: Multiaxial CT images of the abdomen and pelvis were performed without contrast. A dose lowering technique was utilized adhering to the principles of ALARA. COMPARISON STUDY: Abdomen and pelvis CT 12/30/2021. FINDINGS: The lung bases are essentially clear. No pneumoperitoneum. No pneumatosis. No change in the extensive osteoblastic metastatic disease seen throughout the visualized osseous structures. Mild superior endplate pathologic compression fracture at T12 is again noted. This demonstrates 3 mm of retropulsion the posterior superior corner with mild central canal narrowing. Small fat-containing umbilical hernia. No change in the gastric wall thickening. Inflammatory change surrounding the head of the pancreas and duodenum. No evidence for bowel perforation. Therefore, this may represent an acute pancreatitis or duodenitis. This has slightly progressed in the interval. Multiple small gallstones. No gallbladder wall thickening. The unenhanced liver, spleen, and right adrenal gland unremarkable. Mild nodular thickening of the left adrenal gland persists. A few prominent peripancreatic lymph nodes may be reactive. There are punctate bilateral renal calculi. No ureteral stones. No hyd ronephrosis. Normal caliber abdominal aorta. No pelvic free fluid. Multiple small bladder stones. Prior hysterectomy. Stable 1.3 cm hypodense nodule adjacent to the right vaginal cuff. There is mild pelvic floor collapse. Colonic diverticulosis. No evidence for acute diverticulitis. No evidence for bowel obstruction. Left renal cysts, unchanged. IMPRESSION: 1. Interval progression of the inflammatory change surrounding the head of the pancreas and duodenum. This favors an acute pancreatitis. There is also thickening of the second portion of duodenum which has slightly progressed. Therefore, a duodenitis or peptic ulcer disease could also have a similar appearance. Recommend correlation with pancreatic enzymes. 2. Bilateral nephrolithiasis and multiple bladder calculi. No ureteral stones. No hydronephrosis. 3. Extensive osteoblastic metastatic disease with a stable mild superior endplat e pathologic compression fracture at T12. 4. Chronic thickening of the gastric wall. 5. Additional findings as described above. ACT 112: Negative or not required by law. Electronically signed by: Homar Trejo M.D. 02/03/2022 4:27 PM ECG Data Attestation: I personally reviewed and interpreted this ECG as follows: Indication: + weakness Rate (beats per minute): 61 Rhythm: + normal sinus ECG Intervals/blocks: + Normal QRS and + Normal QT ECG Hume: + Normal ECG ST segments: + Nonspecific ST abnormalities MDM Narrative An order was placed for continuous cardiac monitoring. The monitor shows a rate of _66_ with normal sinus__ rhythm. This is an ill-appearing 81-year-old female who was initially seen in the waiting room area as she presented on day of high volume and acuity. Patient presents with worsening weakness, fatigue, and concern for dehydration over the last several weeks since undergoing several urologic procedures. Patient was afebrile and hemodynamically stable on arrival. Patient denied any recurrent pain similar to her prior kidney stones. Patient states she has recurrent vomiting and thus is unable to keep down any food and minimal drink which she feels is contributing to her weakness and dehydration. Labs drawn and sent while patient was in the waiting room, patient was given IV Pepcid and started on IV fluids while in the waiting room. Eventually placement was able to be placed in a room on telemetry and IV magnesium repletion was started. Patient was sent for repeat CT as a precaution given recent urologic procedures, no recurrent ureterolithiasis noted, no evidence of perinephric abscess, pyeloneph ritis, or other acute urologic emergency noted. Upon CT noting possible pancreatitis, lipase and triglycerides were added. Patient denies any history of alcohol abuse, denies any prior issues with her gallbladder. No evidence of cholelithiasis was noted on CT. Lipase reassuring, and only mild elevation of triglycerides noted. Patient does have known history of malignancy with metastases that have been stable per patient and family report, this was also again seen on CT. Patient continued to be cautiously rehydrated and case discussed with hospitalist for additional evaluation and management. Impression & Plan Generalized weakness, Fatigue, Pancreatitis, Hypomagnesemia, Dehydration, Recurrent vomiting Discharge Plan Visit Data Chief Complaint: Nausea Stated Complaint: NAUSEA,VOMITING ED Provider: Cady Mondragon Discharge Problem: Generalized weakness, Fatigue, Pancreatitis, Hypomagnesemia, Dehydration, Recurrent vomiting Patient Disposition: Admitted As Inpatient Discharge Instructions Interventions: ED Discharge Assessment Last Done: 02/03/22 19:51
[2022-02-03] MEDS: MAGNESIUM SULFATE / D5W 1 GM/100 ML BAG IV SCH ×4 (16:23→23:52)
--- NOTE | 2022-02-03 16:29 | CT Scan Report ---
ABDOMEN AND PELVIS CT WITHOUT CONTRAST CT DOSE: 379.68 mGy.cm HISTORY: Lymphoma. weakness, s/p stone/stenting 3 weeks ago TECHNIQUE: Multiaxial CT images of the abdomen and pelvis were performed without contrast. A dose lo wering technique was utilized adhering to the principles of ALARA. COMPARISON STUDY: Abdomen and pelvis CT 12/30/2021. FINDINGS: The lung bases are essentially clear. No pneumoperitoneum. No pneumatosis. No change in the extensive osteoblastic metastatic disease seen throughout the visualized osseous structures. Mild manzanares perior endplate pathologic compression fracture at T12 is again noted. This demonstrates 3 mm of retr opulsion the posterior superior corner with mild central canal narrowing. Small fat-containing umbili rabia hernia. No change in the gastric wall thickening. Inflammatory change surrounding the head of the pancreas and duodenum. No evidence for bowel perforation. Therefore, this may represent an acute albarran creatitis or duodenitis. This has slightly progressed in the interval. Multiple small gallstones. No gallbladder wall thickening. The unenhanced liver, spleen, and right adrenal gland unremarkable. Mild nodular thickening of the left adrenal gland persists. A few prominent peripancreatic lymph nodes ma y be reactive. There are punctate bilateral renal calculi. No ureteral stones. No hydronephrosis. Nor mal caliber abdominal aorta. No pelvic free fluid. Multiple small bladder stones. Prior hysterectomy. Stable 1.3 cm hypodense nodule adjacent to the right vaginal cuff. There is mild pelvic floor collap se. Colonic diverticulosis. No evidence for acute diverticulitis. No evidence for bowel obstruction. Left renal cysts, unchanged. IMPRESSION: 1. Interval progression of the inflammatory change surrounding the head of the pancreas and duodenum. This favors an acute pancreatitis. There is also thickening of the second portion of duodenum which has slightly progressed. Therefore, a duodenitis or peptic ulcer disease could also have a similar ap pearance. Recommend correlation with pancreatic enzymes. 2. Bilateral nephrolithiasis and multiple bladder calculi. No ureteral stones. No hydronephrosis. 3. Extensive osteoblastic metastatic disease with a stable mild superior endplate pathologic compress ion fracture at T12. 4. Chronic thickening of the gastric wall. 5. Additional findings as described above. ACT 112: Negative or not required by law. Electronically signed by: Homar Trejo M.D. 02/03/2022 4:27 PM
[2022-02-03 17:08] LABS: Influenza A virus by PCR Negative (Neg); Influenza B virus by PCR Negative (Neg); RSV by PCR Negative (Neg)
[2022-02-03 17:38] LABS: SARS CoV2 RNA(COVID-19) InHosp POSITIVE (Negative)
[2022-02-03 17:45] LABS: Lipase 33 U/L (11-82); Triglycerides 177 mg/dl (0-150)
--- NOTE | 2022-02-03 18:26 | History & Physical Report ---
Date of Service February 03, 2022 Assessment & Plan (1) Pancreatitis: Plan: Rhonda is an 81-year-old female with a past medical history of diabetes mellitus, hypertension, metastatic breast cancer, nephrolithiasis with recent lithotripsy who presents with persistent nausea/vomiting of several days, poor p.o. intake, and general malaise. Abdomen is not acutely tempered but feels unsettled. On ER evaluation she is found to have pancreatitis on CT, with a elevated lipase. No hypercalcemia, triglycerides 170s, bilirubin and transaminases are not elevated. She is recommended for admission for treatment of pancreatitis, and inadequate p.o. intake with failure to thrive. Pancreatitis, etiology includes drug-induced, COVID, etiopathic No obvious biliary pathology, no hypercalcemia, no hypertriglyceridemia With metastatic breast cancer and lung/bony mets as noted below. On active chemo. Patient has been having ongoing diarrhea with nausea/vomiting No signs of biliary disease on CTA/P, bilirubin and transaminases are normal - CT-A/P: 1. Interval progression of the inflammatory change surrounding the head of the pancreas and duodenum. This favors an acute pancreatitis. There is also thickening of the second portion of duodenum which has slightly progressed. Therefore, a duodenitis or peptic ulcer disease could also have a similar appearance. Recommend correlation with pancreatic enzymes.2. Bilateral nephrolithiasis and multiple bladder calculi. No ureteral stones. No hydronephrosis.3. Extensive osteoblastic metastatic disease with a stable mild superior endplate pathologic compression fracture at T12.4. Chronic thickening of the gastric wall. N.p.o., lactated Ringer's 200/h x 1 bag, then will decrease given history of edema although patient denies heart failure/pulmonary edema. Triglycerides 177, lipase 33, with some abdominal tenderness on exam. COVID-19 PCR positive, also + 01/27/2022 No hypoxia Patient is vaccinated Dexamethasone, remdesivir is not indicated at this time Follow clinically Hypomagnesemia 1.1 in the setting of poor p.o. intake and diarrhea 4 g repletion ordered, p.o. repletion ordered, trend Metastatic breast cancer, history of apical lung nsclc Breast cancer BI-RADS Category 5 on 11/2019, biopsy positive for ER positive HER2 negative breast cancer. PET scan showed right apical lung mass with scattered osteoblastic metastatic lesions with FDG uptake. Underwent bilateral mastectomies on 12/2019 with negative lymph nodes. Apical lung lesion was not able to be easily accessed with bronchoscopy or otherwise, follow-up PET scan showed lung lesion and innumerable bony metastatic disease. Left iliac core biopsy 02/2020 showed metastatic carcinoma, consistent with breast primary with lobular carcinoma. Started anastrozole and Zometa every 28 days. Last follow-up 09/2021 with [facility]. Continued on Ibrance therapy, Faslodex injections monthly. S/p radiation to apical lung NSCLC, unable to be biopsied Patient is currently near the end of week 2 of 3 of treatment, with an off week starting after week 3. Chemo held, heme-onc consulted given concerns for drug-induced pancreatitis Large left luminal stone Lithotripsy and stent placement with subsequent stent removal 01/07/2022 No improvement in nausea 07/17 this Suspicion for acute infection, has had treatment for this but without improvement in symptoms. Suspect GI versus chemo origin DVT prophylaxis: Lovenox Diet: N.p.o. CODE STATUS: DNR/DNI discussed with patient Disposition: Medical surgical with telemetry, may downgrade if doing well once magnesium improved (2) Diabetes mellitus: (3) Depression: (4) General weakness: (5) Hypertension: (6) Lung cancer: (7) Metastasis to bone: (8) Metastatic breast cancer: History of Present Illness Primary Care Provider: HONEY Tellez Rhonda is an 81-year-old female with a past medical history of diabetes mellitus, hypertension, metastatic breast cancer, nephrolithiasis with recent lithotripsy who presents with persistent nausea/vomiting of several days, poor p.o. intake, and general malaise. Abdomen is not acutely tempered but feels unsettled. On ER evaluation she is found to have pancreatitis on CT, with a elevated lipase. No hypercalcemia, triglycerides 170s, bilirubin and transaminases are not elevated. She is recommended for admission for treatment of pancreatitis, and inadequate p.o. intake with failure to thrive. Feels her sx all started around middle of December when she was diagnosed with a Kidney stone. She had lithotripsy and stent placement and subsequent removal. Gibbs she was persistent nauseus, vomiting, and with continued diarrhea. Nonbloody emesis. Cannot eat because she gets nauseus immediately. NO pain, but some discomfort which worsens in her belly when she eats. Sour taste when vomiting and sore in the mid belly. Diarrhea seems to be consistent. Goes a few times per day and is very soft to liquid. Taking doxycycline since being dx with COVID for PNA protection. Vaccinated against COVID. No SoB, difficulty breathing, or chest pain. No hx of EtoH use. Uses NSAIDs rarely, no recent use. No heart problems Hx breast cancer with mets. s/p masectomy and continued on chemo. Gets addition meds from [facility] but isn't sure which. - Ibrantz 125 now decreased 100. Takes for 3 weeks on, 1 week off. She is currently on week 2 about to start week 3 on . Metformin for DM Lasix 40mg daily, hasn't needed recently. Denies hx heart failure Medical History: Reviewed Medications: Reviewed Surgical History: Reviewed Allergies: Reviewed Social History: No tobacco/Etoh. Code Status: Surrogate DM would be her son Mikal. DNR/DNI. Confirmed with patient. Allergies Allergy/AdvReac Type Severity Reaction Status Date / Time cefuroxime Allergy Intermediate petechaie Verified 01/27/22 11:24 influenza virus vaccine, AdvReac Intermediate swollen Verified 01/27/22 11:24 specific arm for months tetanus toxoid, adsorbed AdvReac Intermediate swollen Verified 01/27/22 11:24 arm for months Home Medications Medication Instructions Recorded Confirmed Type azelastine 137 mcg (0.1 %) nasal 1 - 2 sprays intranasal BID PRN 02/22/19 01/27/22 History spray aerosol congestion #1 mL fexofenadine 180 mg tablet 180 mg PO DAILY PRN Congestion #30 02/22/19 01/27/22 History tabs cholecalciferol (vitamin D3) 125 5,000 units PO QAM 04/18/19 01/27/22 History mcg (5,000 unit) capsule acetaminophen 500 mg tablet 500 mg PO Q6H PRN Pain 01/09/20 01/27/22 History (Tylenol Extra Strength) tramadol 50 mg tablet 50 mg PO BID PRN pain #20 tabs 03/06/20 01/27/22 Rx aspirin 81 mg tablet,delayed 81 mg PO QAM 08/27/20 01/27/22 History release fulvestrant 250 mg/5 mL 500 mg IM .COMPLEX 01/29/21 01/27/22 History intramuscular syringe (Faslodex) palbociclib 100 mg capsule 100 mg PO QAM 01/29/21 01/27/22 History (Ibrance) atenolol 50 mg tablet 50 mg PO QAM #90 tabs 04/30/21 01/27/22 Rx furosemide 40 mg tablet 40 mg PO QAM #90 tabs 04/30/21 01/27/22 Rx metformin 500 mg tablet 500 mg PO BID #180 tabs 04/30/21 01/27/22 Rx sertraline 50 mg tablet 50 mg PO QAM #90 tabs 04/30/21 01/27/22 Rx allopurinol 100 mg tablet 100 mg PO QAM #90 tabs 07/29/21 01/27/22 Rx gabapentin 100 mg capsule 100 mg PO BID #180 caps 09/16/21 01/27/22 Rx Magic Mouthwash 300 mL mouthwash 5 ml mucous membrane .COMPLEX PRN 12/03/21 01/27/22 History mouth sores ferrous sulfate 325 mg (65 mg 325 mg PO QAM 12/03/21 01/27/22 History iron) tablet,delayed release mirtazapine 15 mg tablet (Remeron) 15 mg PO HS PRN Sleep 12/03/21 01/27/22 History potassium chloride 10 mEq 10 meq PO QAM 12/03/21 01/27/22 History tablet,extended release doxycycline monohydrate 100 mg 100 mg PO BID #14 caps 01/27/22 01/27/22 Rx capsule tamsulosin 0.4 mg capsule (Flomax) 0.4 mg PO QAM #90 caps 01/27/22 01/27/22 Rx Past Med/Surg History Medical History Allergic rhinitis Anemia Chronic anemia warranting intermittent PRBCs per heme/onc ([facility]) Scheduled for 2U PRBCs 12/04/21 @ [facility] (last hemoglobin 12/02 was 7.6) Chronic back pain CKD (chronic kidney disease) Depression Diabetes mellitus Gout Hypertension Insomnia Kidney calculi Lung cancer 2019-CHEMOTHERAPY AND RADIATION Macular degeneration Metastatic breast cancer Migraine HX On home oxygen therapy 1L HS via NC Ulnar neuropathy Right arm S/P surgery 2019 Surgical History H/O bilateral mastectomy 2019 History of appendectomy History of breast biopsy Multiple History of bronchoscopy History of cataract surgery BOTH EYES 2015 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 Brother No problems noted. Sister No problems noted. Sister No problems noted. Son No problems noted. 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 HEENT: Atraumatic, normocephalic. Vision and hearing grossly intact Pulm: CTAB A&P. -wheezes, -rales, -rhonchi. Symmetrical chest rise. No increase in work of breathing. No respiratory distress. Cardiac: RRR, -mrg. Radial pulses intact and symmetrical. Abdominal: Mildly tender at epigastrium, otherwise nondistended, soft and is without rebound/guarding. Bowel sounds intact. Extremities: Warm, dry. Moves all extremities equally. Results & Data Results & Data ([facility]) Vital Signs (Past 12 Hours) Vital Signs Temp Pulse Pulse Resp BP BP Pulse Ox 02/03/22 16:25 62 18 171/70 H 96 02/03/22 12:45 36.8 C 72 18 144/73 H 97 O2 Del Method 02/03/22 16:25 Room Air 02/03/22 12:45 Room Air PG Care Time/CCT Total # of Minutes Spent Total Time Spent with Patient: Total time spent is greater than 50% in coordination of care (as documented) at patient's floor/unit and/or counseling patient: Coding Level of Care Code 80398 Initial Inpt Care Lvl 3 Diagnoses Pancreatitis K85.90 Diabetes mellitus E11.9 Depression F32.9 General weakness R53.1 Hypertension I10 Lung cancer C34.11 Laterality: right Lung location: upper lobe of lung Metastasis to bone C79.51 Metastatic breast cancer C50.919 (1) Lung cancer Laterality: right Lung location: upper lobe of lung Qualified Code(s): C34.11 - Malignant neoplasm of upper lobe, right bronchus or lung
[2022-02-03 20:02] LABS: Appearance Urine Cloudy (Clear); Bacteria Urine Automated Negative (Negative); Bilirubin Urine Negative (Negative); Blood Urine 2+ (Negative); Color Urine Yellow; Epithelial Cell Urine Auto >30 /lpf (0-5); Glucose Urine UA Negative (Negative); Ketones Urine Trace (Negative); Leukocyte Esterase Urine 2+ (Negative); Nitrite Urine Negative (Negative); Protein Urine 2+ (Negative); Specific Gravity Urine 1.019 (1.000-1.030); Urobilinogen Urine Negative (Negative); WBC Urine Automated >30 /hpf (0-5); pH Urine 5.5 (4.5-7.5)
[2022-02-03] MEDS ORDERED: MIRTAZAPINE TAB 15 MG TAB PO PRN (21:01)
[2022-02-03] MEDS ORDERED: POLYETHYLENE (MIRALAX) 17 GM PACK PO PRN (21:01)
[2022-02-03] MEDS ORDERED: LACTATED RINGER'S 1,000 ML IV SCH (21:01)
[2022-02-03] MEDS ORDERED: ACETAMINOPHEN 325 MG TAB PO PRN (21:01)
[2022-02-03] MEDS ORDERED: Patient's HEIGHT &/or WEIGHT Needed STA (21:05)
[2022-02-03] MEDS ORDERED: ENOXAPARIN INJ 30 MG/0.3 ML SYR SQ SCH (21:30)
[2022-02-03] MEDS: GABAPENTIN 100 MG CAP PO SCH (21:49)
[2022-02-03] MEDS: MAGNESIUM OXIDE 400 MG TAB PO SCH (21:49)
[2022-02-04] MEDS: LACTATED RINGER'S 1,000 ML IV SCH ×2 (03:02→13:44)
[2022-02-04] MEDS: GABAPENTIN 100 MG CAP PO SCH ×2 (07:46→20:19)
[2022-02-04] MEDS: ATENOLOL 50 MG TABLET PO SCH (07:46)
[2022-02-04] MEDS: MAGNESIUM OXIDE 400 MG TAB PO SCH ×2 (07:46→20:19)
[2022-02-04] MEDS: SERTRALINE HCL 50 MG TABLET PO SCH (07:47)
[2022-02-04] MEDS: CHOLECALCIFEROL 5,000 UNITS 125 MCG TAB PO SCH (07:47)
[2022-02-04] MEDS: TAMSULOSIN HCL 0.4 MG CAP PO SCH (07:47)
[2022-02-04 08:41] LABS: Basophils # (auto) 0.01 K/uL (0-0.2); Basophils % (auto) 0.2 %; Eosinophils # (auto) 0.03 K/uL (0-0.50); Eosinophils % (auto) 0.7 %; Hematocrit (blood only) 27.7 % (34.1-44.9); Hemoglobin 8.9 g/dl (12.0-16.0); Immature Granulocytes # (auto) 0.04 K/uL (0.00-0.02); Lymphocytes # (auto) 0.52 K/uL (1.2-3.4); Lymphocytes % (auto) 12.7 %; Mean Corpuscular Hemoglobin 32.5 pg (25.0-34.0); Mean Corpuscular Hgb Conc 32.1 g/dL (32.0-36.0); Mean Corpuscular Volume 101.1 fL (80.0-100.0); Mean Platelet Volume 9.6 fL (9.4-12.3); Monocytes % (auto) 4.9 %; Neutrophils % (auto) 80.5 %; Platelet Count 163 K/uL (130-400); RDW Coefficient of Variation 16.3 % (11.5-14.5); RDW Standard Deviation 60.1 fL (36.4-46.3); Red Blood Count 2.74 M/uL (3.93-5.22)
[2022-02-04 09:01] LABS: Albumin Globulin Ratio 1.2 (0.9-2); Albumin Level 3.1 gm/dl (3.4-5.0); BUN Creatinine Ratio 18.4 (10-20); Bilirubin,Total 0.4 mg/dl (0.2-1.0); C Reactive Protein 0.74 mg/dl (0-0.5); Calcium 7.6 mg/dl (8.5-10.1); Est GFR (African American) 38.1 ml/min; Est GFR (Non-African American) 32.9 ml/min; Globulin 2.5 gm/dl (2.5-4.0); Potassium 3.5 mmol/L (3.5-5.1); Total Protein 5.6 gm/dl (6.0-8.3)
--- NOTE | 2022-02-04 09:05 | Electrocardiogram Report ---
Test Reason : Blood Pressure : / mmHG Vent. Rate : 061 BPM Atrial Rate : 061 BPM P-R Int : 144 ms QRS Dur : 090 ms QT Int : 430 ms P-R-T Axes : 000 009 027 degrees QTc Int : 432 ms Normal sinus rhythm Minor Nonspecific ST abnormality Anterolateral leads Abnormal ECG When compared with ECG of 02-DEC-2021 15:30, No significant change Confirmed by Emiliano Tejeda ([id number]) on 02/04/2022 9:04:58 AM Referred By: REFERRED SELF Confirmed By:Emiliano Tejeda
--- NOTE | 2022-02-04 11:20 | Magnetic Resonance Report ---
MR MRCP HISTORY: Nausea. Vomiting. pancreatitis, malignancy TECHNIQUE: MRCP of the abdomen was performed without contrast according to standard departmental prot ocol. COMPARISON STUDY: Abdomen and pelvis CT 02/03/2022. FINDINGS: There is demonstration of extensive osteoblastic metastatic disease with mild superior endp late compression deformity at T12. There is mild motion artifact. A few small T2 hyperintense lesions within the kidneys which favor cysts. No hydronephrosis. Mild dependent changes seen within the lung bases. No hepatic or splenic masses. There are few punctate stones within the gallbladder. Bowel wal l thickening involving the majority of the duodenum most pronounced at the second portion of the duod enum. There is also mild edema surrounding the duodenum and pancreatic head. No loculated fluid colle ctions identified. The pancreatic tail is within normal limits. Gastric wall thickening, unchanged. T he common bile duct is normal and course and caliber. No filling defects within the common bile duct to suggest a common bile duct stone. The common bile duct measures 3 mm in diameter. The main pancrea tic duct is now well visualized. No gallbladder wall thickening. Mild bilateral perinephric edema. IMPRESSION: 1. Cholelithiasis. No gallbladder wall thickening. 2. Normal caliber common bile duct measuring 3 mm. No filling defects within the common bile ducts to suggest choledocholithiasis. 3. Thickening of the duodenum with surrounding edema. There is also edema surrounding the pancreatic head. No loculated fluid collections. This could represent a pancreatitis and/or duodenitis. 4. Gastric wall thickening, unchanged. 5. Osteoblastic metastatic disease again noted. ACT 112: Negative or not required by law. Electronically signed by: Homar Trejo M.D. 02/04/2022 11:18 AM
--- NOTE | 2022-02-04 14:20 | Hospitalist Progress Note ---
Date of Service February 04, 2022 Assessment & Plan (1) Pancreatitis: Plan: Rhonda is an 81-year-old female with a past medical history of diabetes mellitus, hypertension, metastatic breast cancer, nephrolithiasis with recent lithotripsy who presents with persistent nausea/vomiting of several days, poor p.o. intake, and general malaise. Abdomen is not acutely tempered but feels unsettled. On ER evaluation she is found to have pancreatitis on CT, with a elevated lipase. No hypercalcemia, triglycerides 170s, bilirubin and transaminases are not elevated. She is recommended for admission for treatment of pancreatitis, and inadequate p.o. intake with failure to thrive. Pancreatitis, etiology includes drug-induced, COVID, idiopathic No obvious biliary pathology, no hypercalcemia, no hypertriglyceridemia With metastatic breast cancer and lung/bony mets as noted below. On active chemo. Patient has been having ongoing diarrhea with nausea/vomiting No signs of biliary disease on CTA/P, bilirubin and transaminases are normal Triglycerides 177, lipase 33, with some abdominal tenderness on exam. - Will reach out to GI for consideration of EGD. CT and MRI both indicate possible duodenitis, so would consider if EGD is useful. COVID-19 PCR positive, also + 01/27/2022 No hypoxia Patient is vaccinated Dexamethasone, remdesivir is not indicated at this time Follow clinically Metastatic breast cancer, history of apical lung nsclc Breast cancer BI-RADS Category 5 on 11/2019, biopsy positive for ER positive HER2 negative breast cancer. PET scan showed right apical lung mass with scattered osteoblastic metastatic lesions with FDG uptake. Underwent bilateral mastectomies on 12/2019 with negative lymph nodes. Apical lung lesion was not able to be easily accessed with bronchoscopy or otherwise, follow-up PET scan showed lung lesion and innumerable bony metastatic disease. Left iliac core biopsy 02/2020 showed metastatic carcinoma, consistent with breast primary with lobular carcinoma. Started anastrozole and Zometa every 28 days. Last follow- up 09/2021 with [facility]. Continued on Ibrance therapy, Faslodex injections monthly. S/p radiation to apical lung NSCLC, unable to be biopsied Patient is currently near the end of week 2 of 3 of treatment, with an off week starting after week 3. CKD: Baseline Cr ~1.5, presently at baseline. Large left luminal stone Lithotripsy and stent placement with subsequent stent removal 01/07/2022. No improvement in nausea 2/2 this Suspicion for acute infection, has had treatment for this but without improvement in symptoms. Suspect GI versus chemo origin. DVT prophylaxis: Lovenox (2) Diabetes mellitus: (3) Depression: (4) General weakness: (5) Hypertension: (6) Lung cancer: (7) Metastasis to bone: (8) Metastatic breast cancer: Admission and Anticipated Discharge Date Admission Date: February 03, 2022 Subjective Feeling better today. Some appetite, but has not tried to eat yet. Minimal abdominal pain. Reports no fevers/chills, chest pain, shortness of breath, nausea, or vomiting. Physical Exam 2 Constitutional: WD/WN, vitals as above Eyes: EOM intact bilaterally; no conjunctival abnormality ENMT: external ear and nose normal, oropharynx normal Neck: trachea midline, no thyromegaly normal visual inspection Respiratory: normal respiratory effort, lungs clear to auscultation no respiratory distress Cardiovascular: RRR, no murmur, no edema Gastrointestinal (Abdomen): Inspection/Auscultation: abdomen normal to inspection; abdomen not distended Musculoskeletal: no cyanosis or clubbing, extremities motor strength 5/5 Skin: no rashes, warm and dry Neurologic: moves all extremities and awake Psychiatric: Orientation: alert, oriented to person and cooperative Results & Data Results & Data ([facility]) Vital Signs (Past 12 Hours) Vital Signs Temp Pulse Pulse Resp BP Pulse Ox O2 Del Method 02/04/22 07:58 36.9 C 68 18 133/77 96 Room Air 02/04/22 06:58 66 02/04/22 03:35 36.4 C L 70 18 120/73 96 Room Air PG Care Time/CCT Total # of Minutes Spent Total Time Spent with Patient: Total time spent is greater than 50% in coordination of care (as documented) at patient's floor/unit and/or counseling patient: Coding Level of Care Code 63521 Subseq Hosp Care Lvl 3 Diagnoses Pancreatitis K85.90 Diabetes mellitus E11.9 Depression F32.9 General weakness R53.1 Hypertension I10 Lung cancer C34.11 Laterality: right Lung location: upper lobe of lung Metastasis to bone C79.51 Metastatic breast cancer C50.919 (1) Lung cancer Laterality: right Lung location: upper lobe of lung Qualified Code(s): C34.11 - Malignant neoplasm of upper lobe, right bronchus or lung
[2022-02-05] MEDS: LACTATED RINGER'S 1,000 ML IV SCH ×2 (02:07→16:30)
[2022-02-05] MEDS: ATENOLOL 50 MG TABLET PO SCH (08:13)
[2022-02-05] MEDS: MAGNESIUM OXIDE 400 MG TAB PO SCH ×2 (08:13→22:52)
[2022-02-05] MEDS: GABAPENTIN 100 MG CAP PO SCH ×2 (08:13→22:52)
[2022-02-05] MEDS: CHOLECALCIFEROL 5,000 UNITS 125 MCG TAB PO SCH (08:14)
[2022-02-05] MEDS: TAMSULOSIN HCL 0.4 MG CAP PO SCH (08:14)
[2022-02-05] MEDS: SERTRALINE HCL 50 MG TABLET PO SCH (08:14)
[2022-02-05 08:53] LABS: Hematocrit (blood only) 25.8 % (34.1-44.9); Hemoglobin 8.3 g/dl (12.0-16.0); Mean Corpuscular Hemoglobin 32.7 pg (25.0-34.0); Mean Corpuscular Hgb Conc 32.2 g/dL (32.0-36.0); Mean Corpuscular Volume 101.6 fL (80.0-100.0); Mean Platelet Volume 10.4 fL (9.4-12.3); Platelet Count 138 K/uL (130-400); RDW Coefficient of Variation 16.1 % (11.5-14.5); RDW Standard Deviation 60.2 fL (36.4-46.3); Red Blood Count 2.54 M/uL (3.93-5.22); White Blood Count 3.63 K/ul (4.8-10.8)
[2022-02-05 09:24] LABS: BUN Creatinine Ratio 16.2 (10-20); Calcium 7.4 mg/dl (8.5-10.1); Creatinine Clr Calc Pharmacy 30.5 ml/min; Est GFR (African American) 41.9 ml/min; Est GFR (Non-African American) 36.1 ml/min; Magnesium 1.8 mg/dl (1.7-2.4); Potassium 3.1 mmol/L (3.5-5.1)
--- NOTE | 2022-02-05 09:46 | Communication Note ---
Date of Service: February 05, 2022 81-year-old female with a past medical history of diabetes mellitus, hypertension, metastatic breast cancer, nephrolithiasis with recent lithotripsy who was admitted with persistent nausea/vomiting of several days, poor p.o. intake, and general malaise. On ER evaluation she is found to have pancreatitis on CT. lipase 33. No hypercalcemia, bilirubin and transaminases are not elevated. She was admitted for treatment of pancreatitis, and inadequate p.o. intake with failure to thrive. Imaging was suggestive of possible duodentitis. GI consulted for this. To mitigate COVID 19 exposure risk, history and recommendations were made based on a chart review and discussion with the healthcare team. There is no clinical benefit of physical examination in this clinical case, however, we will reassess if clinical situation were to change. Discussed case with Dr. Sheikh who advised on plan, will start PPI bid and since active covid, will plan for outpa tient EGD once recovered.
[2022-02-05] MEDS: PANTOprazole 40 MG TAB PO SCH ×2 (11:50→22:51)
--- NOTE | 2022-02-05 13:33 | Hospitalist Progress Note ---
Date of Service February 05, 2022 Assessment & Plan (1) Pancreatitis: Plan: Rhonda is an 81-year-old female with a past medical history of diabetes mellitus, hypertension, metastatic breast cancer, nephrolithiasis with recent lithotripsy who presents with persistent nausea/vomiting of several days, poor p.o. intake, and general malaise. Abdomen is not acutely tempered but feels unsettled. On ER evaluation she is found to have pancreatitis on CT, with a elevated lipase. No hypercalcemia, triglycerides 170s, bilirubin and transaminases are not elevated. She is recommended for admission for treatment of pancreatitis, and inadequate p.o. intake with failure to thrive. Pancreatitis vs. duodenitis. Etiology for pancreatitis includes drug-induced, COVID, idiopathic. However, imaging indicates possible duodenitis. No obvious biliary pathology, no hypercalcemia, no hypertriglyceridemia With metastatic breast cancer and lung/bony mets as noted below. On active chemo. Patient has been having ongoing diarrhea with nausea/vomiting since her stent placement for kidney stones. No signs of biliary disease on CTA/P, bilirubin and transaminases are normal Triglycerides 177, lipase 33, with some abdominal tenderness on exam. - Reached out to GI for consideration of EGD as CT and MRI both indicate possible duodenitis. They did not see the patient and report the physical exam "of no clinical benefit." Defer EGD for outpatient. Patient also prefers deferri ng EGD at this time as she's "done enough" for the time being. - Will trend hgb further. If it falls further, will reach out to the GI team to push the issue. COVID-19 PCR positive, also + 01/27/2022 No hypoxia Patient is vaccinated Dexamethasone, remdesivir is not indicated at this time Follow clinically - Still stable on room air. Metastatic breast cancer, history of apical lung nsclc Breast cancer BI-RADS Category 5 on 11/2019, biopsy positive for ER positive HER2 negative breast cancer. PET scan showed right apical lung mass with scattered osteoblastic metastatic lesions with FDG uptake. Underwent bilateral mastectomies on 12/2019 with negative lymph nodes. Apical lung lesion was not able to be easily accessed with bronchoscopy or otherwise, follow-up PET scan showed lung lesion and innumerable bony metastatic disease. Left iliac core biopsy 02/2020 showed metastatic carcinoma, consistent with breast primary with lobular carcinoma. Started anastrozole and Zometa every 28 days. Last follow- up 09/2021 with [facility]. Continued on Ibrance therapy, Faslodex injections monthly. S/p radiation to apical lung NSCLC, unable to be biopsied Patient is currently near the end of week 2 of 3 of treatment, with an off week starting after week 3. Discussed with Dr. Marcus. Will hold this last week of Ibrance and do a 2-week "off" period. CKD: Baseline Cr ~1.5, presently at baseline. Large left luminal stone Lithotripsy and stent placement with subsequent stent removal 01/07/2022. No improvement in nausea 2/2 this Suspicion for acute infection, has had treatment for this but without improvement in symptoms. Suspect GI versus chemo origin. DVT prophylaxis: SCDs - Holding Lovenox for duodenitis. (2) Diabetes mellitus: (3) Depression: (4) General weakness: (5) Hypertension: (6) Lung cancer: (7) Metastasis to bone: (8) Metastatic breast cancer: Admission and Anticipated Discharge Date Admission Date: February 03, 2022 Subjective Feeling better today. Has done well with her clear liquid diet and is actually ready to try more. Reports no fevers/chills, chest pain, shortness of breath, nausea, or vomiting. Physical Exam Constitutional: WD/WN, vitals as above Eyes: EOM intact bilaterally; no conjunctival abnormality ENMT: external ear and nose normal, oropharynx normal Neck: trachea midline, no thyromegaly normal visual inspection Respiratory: normal respiratory effort, lungs clear to auscultation no respiratory distress Cardiovascular: RRR, no murmur, no edema Gastrointestinal (Abdomen): Inspection/Auscultation: abdomen normal to i nspection; abdomen not distended Musculoskeletal: no cyanosis or clubbing, extremities motor strength 5/5 Skin: no rashes, warm and dry Neurologic: moves all extremities and awake Psychiatric: Orientation: alert, oriented to person and cooperative Results & Data Results & Data ([facility]) Vital Signs (Past 12 Hours) Vital Signs Temp Pulse Pulse Resp BP Pulse Ox O2 Del Method 02/05/22 07:19 58 L 02/05/22 04:39 36.3 C L 64 20 123/59 L 93 Room Air PG Care Time/CCT Total # of Minutes Spent Total Time Spent with Patient: Total time spent is greater than 50% in coordination of care (as documented) at patient's floor/unit and/or counseling patient: Coding Level of Care Code 71956 Subseq Hosp Care Lvl 3 Diagnoses Pancreatitis K85.90 Diabetes mellitus E11.9 Depression F32.9 General weakness R53.1 Hypertension I10 Lung cancer C34.11 Laterality: right Lung location: upper lobe of lung Metastasis to bone C79.51 Metastatic breast cancer C50.919 (1) Lung cancer Laterality: right Lung location: upper lobe of lung Qualified Code(s): C34.11 - Malignant neoplasm of upper lobe, right bronchus or lung
[2022-02-06] MEDS: LACTATED RINGER'S 1,000 ML IV SCH ×2 (04:12→15:05)
[2022-02-06] MEDS: SERTRALINE HCL 50 MG TABLET PO SCH (08:17)
[2022-02-06] MEDS: TAMSULOSIN HCL 0.4 MG CAP PO SCH (08:17)
[2022-02-06] MEDS: CHOLECALCIFEROL 5,000 UNITS 125 MCG TAB PO SCH (08:17)
[2022-02-06] MEDS: ATENOLOL 50 MG TABLET PO SCH (08:17)
[2022-02-06] MEDS: PANTOprazole 40 MG TAB PO SCH ×2 (08:17→21:33)
[2022-02-06] MEDS: GABAPENTIN 100 MG CAP PO SCH ×2 (08:17→21:33)
[2022-02-06] MEDS: MAGNESIUM OXIDE 400 MG TAB PO SCH ×2 (08:17→21:32)
[2022-02-06 09:23] LABS: Hematocrit (blood only) 26.4 % (34.1-44.9); Hemoglobin 8.6 g/dl (12.0-16.0); Mean Platelet Volume 10.5 fL (9.4-12.3); Platelet Count 120 K/uL (130-400); White Blood Count 3.42 K/ul (4.8-10.8)
[2022-02-06 09:40] LABS: BUN Creatinine Ratio 13.7 (10-20); Calcium 7.5 mg/dl (8.5-10.1); Creatinine Clr Calc Pharmacy 31.7 ml/min; Est GFR (African American) 43.8 ml/min; Est GFR (Non-African American) 37.8 ml/min; Magnesium 1.7 mg/dl (1.7-2.4)
[2022-02-06 10:00] LABS: Mean Corpuscular Hemoglobin 32.3 pg (25.0-34.0); Mean Corpuscular Hgb Conc 32.6 g/dL (32.0-36.0); Mean Corpuscular Volume 99.2 fL (80.0-100.0); RDW Standard Deviation 58.3 fL (36.4-46.3); Red Blood Count 2.66 M/uL (3.93-5.22)
--- NOTE | 2022-02-06 17:20 | Hospitalist Progress Note ---
Date of Service February 06, 2022 Assessment & Plan (1) Pancreatitis: Plan: Rhonda is an 81-year-old female with a past medical history of diabetes mellitus, hypertension, metastatic breast cancer, nephrolithiasis with recent lithotripsy who presents with persistent nausea/vomiting of several days, poor p.o. intake, and general malaise. Abdomen is not acutely tempered but feels unsettled. On ER evaluation she is found to have pancreatitis on CT, with a elevated lipase. No hypercalcemia, triglycerides 170s, bilirubin and transaminases are not elevated. She is recommended for admission for treatment of pancreatitis, and inadequate p.o. intake with failure to thrive. Pancreatitis vs. duodenitis. Etiology for pancreatitis includes drug-induced, COVID, idiopathic. However, imaging indicates possible duodenitis. No obvious biliary pathology, no hypercalcemia, no hypertriglyceridemia With metastatic breast cancer and lung/bony mets as noted below. On active chemo. Patient has been having ongoing diarrhea with nausea/vomiting since her stent placement for kidney stones. No signs of biliary disease on CTA/P, bilirubin and transaminases are normal Triglycerides 177, lipase 33, with some abdominal tenderness on exam. - Reached out to GI for consideration of EGD as CT and MRI both indicate possible duodenitis. GI team defers consult and EGD until patient past Covid window. - Will trend hgb further. If it falls further, will reach out to the GI team to push the issue. While falling slightly, no acute drop and no indication of bleeding. COVID-19 PCR positive, also + 01/27/2022 No hypoxia Patient is vaccinated Dexamethasone, remdesivir is not indicated at this time Follow clinically - Still stable on room air. Metastatic breast cancer, history of apical lung nsclc Breast cancer BI-RADS Category 5 on 11/2019, biopsy positive for ER positive HER2 negative breast cancer. PET scan showed right apical lung mass with scattered osteoblastic metastatic lesions with FDG uptake. Underwent bilateral mastectomies on 12/2019 with negative lymph nodes. Apical lung lesion was not able to be easily accessed with bronchoscopy or otherwise, follow-up PET scan showed lung lesion and innumerable bony metastatic disease. Left iliac core bi opsy 02/2020 showed metastatic carcinoma, consistent with breast primary with lobular carcinoma. Started anastrozole and Zometa every 28 days. Last follow- up 09/2021 with [facility]. Continued on Ibrance therapy, Faslodex injections monthly. S/p radiation to apical lung NSCLC, unable to be biopsied Patient is currently near the end of week 2 of 3 of treatment, with an off week starting after week 3. Discussed with Dr. Marcus. Will hold this last week of Ibrance and do a 2-week "off" period. CKD: Baseline Cr ~1.5, presently at baseline. Large left luminal stone Lithotripsy and stent placement with subsequent stent removal 01/07/2022. No improvement in nausea 2/2 this Suspicion for acute infection, has had treatment for this but without improvement in symptoms. Suspect GI versus chemo origin. DVT prophylaxis: SCDs - Holding Lovenox for duodenitis. (2) Diabetes mellitus: (3) Depression: (4) General weakness: (5) Hypertension: (6) Lung cancer: (7) Metastasis to bone: (8) Metastatic breast cancer: Admission and Anticipated Discharge Date Admission Date: February 03, 2022 Subjective Doing really well today. Appetite has been very good. Tolerating food without nausea or pain. Reports no fevers/chills, chest pain, shortness of breath, abdominal pain, nausea, or vomiting. Physical Exam Constitutional: WD/WN, vitals as above Eyes: EOM intact bilaterally; no conjunctival abnormality ENMT: external ear and nose normal, oropharynx normal Neck: trachea midline, no thyromegaly normal visual inspection Respiratory: normal respiratory effort, lungs clear to auscultation no respiratory distress Cardiovascular: RRR, no murmur, no edema Gastrointestinal (Abdomen): Inspection/Auscultation: abdomen normal to inspection; abdomen not distended Musculoskeletal: no cyanosis or clubbing, extremities motor strength 5/5 Skin: no rashes, warm and dry Neurologic: moves all extremities and awake Psychiatric: Orientation: alert, oriented to person and cooperative Results & Data Results & Data ([facility]) Vital Signs (Past 12 Hours) Vital Signs Temp Pulse Pulse Resp BP Pulse Ox O2 Del Method 02/06/22 16:45 61 02/06/22 16:02 36.5 C 61 18 115/71 96 Room Air 02/06/22 11:21 36.5 C 58 L 18 123/75 95 Room Air 02/06/22 09:21 55 L 02/06/22 06:39 36.4 C L 64 20 138/75 94 Room Air PG Care Time/CCT Total # of Minutes Spent Total Time Spent with Patient: Total time spent is greater than 50% in coordination of care (as documented) at patient's floor/unit and/or counseling patient: Coding Level of Care Code 11299 Subseq Hosp Care Lvl 2 Diagnoses Pancreatitis K85.90 Diabetes mellitus E11.9 Depression F32.9 General weakness R53.1 Hypertension I10 Lung cancer C34.11 Laterality: right Lung location: upper lobe of lung Metastasis to bone C79.51 Metastatic breast cancer C50.919 (1) Lung cancer Laterality: right Lung location: upper lobe of lung Qualified Code(s): C34.11 - Malignant neoplasm of upper lobe, right bronchus or lung
[2022-02-06] MEDS: POTASSIUM CHLORIDE CRTAB 20 MEQ TABCR PO SCH ×2 (18:39→21:32)
[2022-02-06 23:01] VITALS: TEMP 97.5; O2SAT 94
[2022-02-07 07:43] VITALS: PULSE 62
[2022-02-07] MEDS: CHOLECALCIFEROL 5,000 UNITS 125 MCG TAB PO SCH (08:02)
[2022-02-07] MEDS: GABAPENTIN 100 MG CAP PO SCH (08:02)
[2022-02-07] MEDS: TAMSULOSIN HCL 0.4 MG CAP PO SCH (08:02)
[2022-02-07] MEDS: MAGNESIUM OXIDE 400 MG TAB PO SCH (08:02)
[2022-02-07] MEDS: ATENOLOL 50 MG TABLET PO SCH (08:02)
[2022-02-07] MEDS: PANTOprazole 40 MG TAB PO SCH (08:02)
[2022-02-07 08:17] LABS: Hematocrit (blood only) 26.9 % (34.1-44.9); Hemoglobin 8.7 g/dl (12.0-16.0); Mean Platelet Volume 10.4 fL (9.4-12.3); Platelet Count 117 K/uL (130-400); White Blood Count 3.12 K/ul (4.8-10.8)
[2022-02-07 08:33] LABS: Mean Corpuscular Hemoglobin 32.3 pg (25.0-34.0); Mean Corpuscular Hgb Conc 32.3 g/dL (32.0-36.0); RDW Coefficient of Variation 16.1 % (11.5-14.5); RDW Standard Deviation 59.4 fL (36.4-46.3); Red Blood Count 2.69 M/uL (3.93-5.22)
[2022-02-07 08:47] LABS: BUN Creatinine Ratio 11.2 (10-20); Calcium 7.6 mg/dl (8.5-10.1); Creatinine Clr Calc Pharmacy 27.4 ml/min; Est GFR (African American) 36.6 ml/min; Est GFR (Non-African American) 31.6 ml/min; Magnesium 1.6 mg/dl (1.7-2.4); Potassium 3.7 mmol/L (3.5-5.1)
[2022-02-07] MEDS: SERTRALINE HCL 50 MG TABLET PO SCH (09:52)
[2022-02-07] MEDS: MAGNESIUM SULFATE / D5W 1 GM/100 ML BAG IV SCH ×2 (10:44→12:19)
--- NOTE | 2022-02-07 13:46 | Discharge Summary ---
Date of Service February 07, 2022 Admission HPI Per Admitting Provider Rhonda is an 81-year-old female with a past medical history of diabetes mellitus, hypertension, metastatic breast cancer, nephrolithiasis with recent lithotripsy who presents with persistent nausea/vomiting of several days, poor p.o. intake, and general malaise. Abdomen is not acutely tempered but feels unsettled. On ER evaluation she is found to have pancreatitis on CT, with a elevated lipase. No hypercalcemia, triglycerides 170s, bilirubin and transaminases are not elevated. She is recommended for admission for treatment of pancreatitis, and inadequate p.o. intake with failure to thrive. Feels her sx all started around middle of December when she was diagnosed with a Kidney stone. She had lithotripsy and stent placement and subsequent removal. [place] she was persistent nauseus, vomiting, and with continued diarrhea. Nonbloody emesis. Cannot eat because she gets nauseus immediately. NO pain, but some discomfort which worsens in her belly when she eats. Sour taste when vomiting and sore in the mid belly. Diarrhea seems to be consistent. Goes a few times per day and is very soft to liquid. Taking doxycycline since being dx with COVID for PNA protection. Vaccinated against COVID. No SoB, difficulty breathing, or chest pain. No hx of EtoH use. Uses NSAIDs rarely, no recent use. No heart problems Hx breast cancer with mets. s/p masectomy and continued on chemo. Gets addition meds from [facility] but isn't sure which. - Ibrantz 125 now decreased 100. Takes for 3 weeks on, 1 week off. She is currently on week 2 about to start week 3 on . Metformin for DM Lasix 40mg daily, hasn't needed recently. Denies hx heart failure Principal Diagnosis 1. Pancreatitis v. duodenitis-improved 2. COVID-19 3. Hypomagnesemia-replaced 4. Debility/weakness Discharge Exam GENERAL: 81 yo Well-developed, well-nourished elderly wf. NAD. LUNGS: Clear to auscultation bilaterally w/o w/r/r CARDIOVASCULAR: Regular rate and rhythm. No M/G/R. No JVD. ABDOMEN: Soft, non-tender and non-distended. BS normoactive x 4 quad. EXTREMITIES: No edema. Non-tender. Peripheral pulses +2/4. NEUROLOGIC: A&O x3. Nonfocal PSYCHIATRIC: Cooperative. Appropriate mood and affect. SKIN: Warm, dry, intact. No rashes or lesions. Discharge Data Allergies Allergy/AdvReac Type Severity Reaction Status Date / Time cefuroxime Allergy Intermediate petechaie Verified 01/27/22 11:24 influenza virus vaccine, AdvReac Intermediate swollen Verified 01/27/22 11:24 specific arm for months tetanus toxoid, adsorbed AdvReac Intermediate swollen Verified 01/27/22 11:24 arm for months Consultations 02/03/22 18:15 ED Decision to Admit Stat 02/04/22 14:20 Consult Gastroenterology Routine Ordered Studies Chest X-Ray 02/03/22 12:53 XR chest 2V PA/lateral HISTORY: 81 years-old Female illness acute illness in a patient with history of renal calculi COMPARISON: CT 12/30/2021, chest radiograph 12/02/2021 TECHNIQUE: PA and lateral views of the chest. FINDINGS: Cardiomediastinal and hilar silhouettes are within normal limits. Irregular right apical opacity measuring up to approximately 5 cm is similar to the prior study. No pneumothorax, pleural effusion, new airspace consolidation or overt pulmonary edema. Degenerative changes of the shoulders and spine. Extensive osteoblastic skeletal metastasis redemonstrated. IMPRESSION: 1. No acute process. 2. Masslike opacity of the right lung apex is unchanged from 12/30/2021 which may represent fibrosis. 3. Extensive osteoblastic skeletal metastasis redemonstrated. No acute pathologic fracture identified. ACT 112: Negative or not required by law. The above report was generated using voice recognition software. It may contain grammatical, syntax or spelling errors. Electronically signed by: Esequiel Phoenix M.D. 02/03/2022 1:29 PM Abdomen/Pelvis CT 02/03/22 15:[address] WITHOUT CONTRAST CT DOSE: 379.68 mGy.cm HISTORY: Lymphoma. weakness, s/p stone/stenting 3 weeks ago TECHNIQUE: Multiaxial CT images of the abdomen and pelvis were performed without contrast. A dose lowering technique was utilized adhering to the principles of ALARA. COMPARISON STUDY: Abdomen and pelvis CT 12/30/2021. FINDINGS: The lung bases are essentially clear. No pneumoperitoneum. No pneumatosis. No change in the extensive osteoblastic metastatic disease seen throughout the visualized osseous structures. Mild superior endplate pathologic compression fracture at T12 is again noted. This demonstrates 3 mm of retropulsion the posterior superior corner with mild central canal narrowing. Small fat-containing umbilical hernia. No change in the gastric wall thickening. Inflammatory change surrounding the head of the pancreas and duodenum. No evidence for bowel perforation. Therefore, this may represent an acute pancreatitis or duodenitis. This has slightly progressed in the interval. Multiple small gallstones. No gallbladder wall thickening. The unenhanced liver, spleen, and right adrenal gland unremarkable. Mild nodular thickening of the left adrenal gland persists. A few prominent peripancreatic lymph nodes may be reactive. There are punctate bilateral renal calculi. No ureteral stones. No hydronephrosis. Normal caliber abdominal aorta. No pelvic free fluid. Multiple small bladder stones. Prior hysterectomy. Stable 1.3 cm hypodense nodule adjacent to the right vaginal cuff. There is mild pelvic floor collapse. Colonic diverticulosis. No evidence for acute diverticulitis. No evidence for bowel obstruction. Left renal cysts, unchanged. IMPRESSION: 1. Interval progression of the inflammatory change surrounding the head of the pancreas and duodenum. This favors an acute pancreatitis. There is also thickening of the second portion of duodenum which has slightly progressed. Therefore, a duodenitis or peptic ulcer disease could also have a similar appearance. Recommend correlation with pancreatic enzymes. 2. Bilateral nephrolithiasis and multiple bladder calculi. No ureteral stones. No hydronephrosis. 3. Extensive osteoblastic metastatic disease with a stable mild superior endplate pathologic compression fracture at T12. 4. Chronic thickening of the gastric wall. 5. Additional findings as described above. ACT 112: Negative or not required by law. Electronically signed by: Homar Trejo M.D. 02/03/2022 4:27 PM Cholangiopancreatography MRI 02/04/22 00:15 MR MRCP HISTORY: Nausea. Vomiting. pancreatitis, malignancy TECHNIQUE: MRCP of the abdomen was performed without contrast according to standard departmental protocol. COMPARISON STUDY: Abdomen and pelvis CT 02/03/2022. FINDINGS: There is demonstration of extensive osteoblastic metastatic disease with mild superior endplate compression deformity at T12. There is mild motion artifact. A few small T2 hyperintense lesions within the kidneys which favor cysts. No hydronephrosis. Mild dependent changes seen within the lung bases. No hepatic or splenic masses. There are few punctate stones within the gallbladder. Bowel wall thickening involving the majority of the duodenum most pronounced at the second portion of the duodenum. There is also mild edema surrounding the duodenum and pancreatic head. No loculated fluid collections identified. The pancreatic tail is within normal limits. Gastric wall thickening, unchanged. The common bile duct is normal and course and caliber. No filling defects within the common bile duct to suggest a common bile duct stone. The common bile duct measures 3 mm in diameter. The main pancreatic duct is now well visualized. No gallbladder wall thickening. Mild bilateral perinephric edema. IMPRESSION: 1. Cholelithiasis. No gallbladder wall thickening. 2. Normal caliber common bile duct measuring 3 mm. No filling defects within the common bile ducts to suggest choledocholithiasis. 3. Thickening of the duodenum with surrounding edema. There is also edema surrounding the pancreatic head. No loculated fluid collections. This could represent a pancreatitis and/or duodenitis. 4. Gastric wall thickening, unchanged. 5. Osteoblastic metastatic disease again noted. ACT 112: Negative or not required by law. Electronically signed by: Homar Trejo M.D. 02/04/2022 11:18 AM Hospital Course (1) Pancreatitis: Rhonda is an 81-year-old female with a past medical history of diabetes mellitus, hypertension, metastatic breast cancer, nephrolithiasis with recent lithotripsy who presents with persistent nausea/vomiting of several days, poor p.o. intake, and general malaise. Abdomen is not acutely tempered but feels unsettled. On ER evaluation she is found to have pancreatitis on CT, with a elevated lipase. No hypercalcemia, triglycerides 170s, bilirubin and transaminases are not elevated. She is recommended for admission for treatment of pancreatitis, and inadequate p.o. intake with failure to thrive. Pancreatitis vs. duodenitis. Etiology for pancreatitis includes drug-induced, COVID, idiopathic. However, imaging indicates possible duodenitis. No obvious biliary pathology, no hypercalcemia, no hypertriglyceridemia With metastatic breast cancer and lung/bony mets as noted below. On active chemo. Patient has been having ongoing diarrhea with nausea/vomiting since her stent placement for kidney stones. No signs of biliary disease on CTA/P, bilirubin and transaminases are normal Triglycerides 177, lipase 33, with some abdominal tenderness on exam. - Reached out to GI for consideration of EGD as CT and MRI both indicate possible duodenitis. GI team defers consult and EGD until patient past Covid window. - Will trend hgb further. If it falls further, will reach out to the GI team to push the issue. While falling slightly, no acute drop and no indication of bleeding. COVID-19 PCR positive, also + 01/27/2022 No hypoxia Patient is vaccinated Dexamethasone, remdesivir is not indicated at this time Follow clinically - Still stable on room air. Metastatic breast cancer, history of apical lung nsclc Breast cancer BI-RADS Category 5 on 11/2019, biopsy positive for ER positive HER2 negative breast cancer. PET scan showed right apical lung mass with scattered osteoblastic metastatic lesions with FDG uptake. Underwent bilateral mastectomies on 12/2019 with negative lymph nodes. Apical lung lesion was not able to be easily accessed with bronchoscopy or otherwise, follow-up PET scan showed lung lesion and innumerable bony metastatic disease. Left iliac core biopsy 02/2020 showed metastatic carcinoma, consistent with breast primary with lobular carcinoma. Started anastrozole and Zometa every 28 days. Last follow- up 09/2021 with [facility]. Continued on Ibrance therapy, Faslodex injections monthly. S/p radiation to apical lung NSCLC, unable to be biopsied Patient is currently near the end of week 2 of 3 of treatment, with an off week starting after week 3. Discussed with Dr. Marcus. Will hold this last week of Ibrance and do a 2-week "off" period. CKD: Baseline Cr ~1.5, presently at baseline. Large left luminal stone Lithotripsy and stent placement with subsequent stent removal 01/07/2022. No improvement in nausea 2/2 this Suspicion for acute infection, has had treatment for this but without improvement in symptoms. Suspect GI versus chemo origin. (2) Diabetes mellitus: (3) Depression: (4) General weakness: (5) Hypertension: (6) Lung cancer: (7) Metastasis to bone: (8) Metastatic breast cancer: Plan At this time, patient is medically and hemodynamically stable for discharge home today with home health. Discussed with patient and son, Mikal. Case management to arrange home health. She is to f/u with her family doctor within 1 week of discharge. Advised f/u with GI, appt scheduled for 02/28 @ 9am. New meds rx'd: Protonix and Total Time Total Time Spent Total Time Spent (In Minutes): >30 minutes Discharge Plan Discharge Items Patient Disposition: Home - Home Health Services Reason For Visit: PANCREATITIS, HYPOMAGNESEMIA Discharge Diagnosis: inflammation of the pancreas low magnesium level covid-19 Activity: As commented below Activity Comment: with assistance as tolerated Non-emergency contact: Primary Care Provider Call non-emergency contact if: you have any medication questions and your symptoms worsen Follow-up/Referrals: Theodora Ty CRNP [Primary Care Provider] - 02/14/22 10:30 am Gio Sheikh MD [Physician] - 02/28/22 9:00 am Diet: Carb Consistent or DM2 Addtl Attending Provider Instructions: You were hospitalized due to inflammation in your pancreas which was contributing to your symptoms of nausea and vomiting. Also, you were noted to have a low magnesium level. In order to treat your condition, you were given IV fluids, anti-nausea medications and medications to help suppress gastric acid. Gastroenterology was consulted due to concern that the CT scan of your abdomen was concerning for inflammation of the duodenum (called duodenitis) which is the first part of your small intestine. It is recommended that you follow up with GI as an outpatient to have an EGD (a scope with a camera to look at your esophagus/stomach/duodenum) to determine if this is in fact the case. You are being discharged on Protonix which is a medication to help suppress stomach acid. You were positive for COVID-19 but did not need any treatment including anti- virals or steroids. You can stop taking the Doxycycline that you were prescribed your primary care provider. Your magnesium level which was low was replaced through your IV. Moving forward, continue to take magnesium supplements and eat food rich in magnesium. A prescription for magnesium supplementation has been sent to your pharmacy. Regarding your breast cancer treatment, you are to hold your Ibrance for a total of 2 weeks. Resume when instructed by Dr. Marcus. Please plan to follow up as scheduled with Dr. Marcus. We recommend follow up with your primary care provider within 1 week of discharge from the hospital. Follow up with gastroenterology as scheduled. An appt has been made for you on 02/28/22 at 9am in the [facility]. You are being set up with home health to provide in-home physical and occupational therapy as well as a visiting nurse. If you have any questions following your discharge, please contact the nonemergency number listed on your discharge paperwork. In the event of a medical emergency call 911. Pending Studies at Discharge: No Stand-Alone Forms: My [facility], Smoking Cessation Medications and DC Order Prescriptions: New magnesium oxide 400 mg (241.3 mg magnesium) Tablet 400 mg PO BID Qty: 60 0RF pantoprazole 40 mg Tablet,Delayed Release (Dr/Ec) 40 mg PO BID Qty: 60 0RF Continued tramadol 50 mg tablet 50 mg PO BID PRN (Reason: pain) Qty: 20 1RF Rx Instructions: PDMP searched, last filled on 10/27/2019 for 10 day supply, okay to fill Ibrance 100 mg capsule 100 mg PO QAM Rx Instructions: administer on days 1 through 21 then off 7 days fulvestrant [Faslodex] 250 mg/5 mL syringe 500 mg IM .COMPLEX Rx Instructions: 500 mg IM MONTHLY; may divide dose into 2 equally divided injections; one into each buttock atenolol 50 mg tablet 50 mg PO QAM Qty: 90 3RF furosemide 40 mg tablet 40 mg PO QAM Qty: 90 3RF metformin 500 mg tablet 500 mg PO BID Qty: 180 3RF sertraline 50 mg tablet 50 mg PO QAM Qty: 90 3RF allopurinol 100 mg tablet 100 mg PO QAM Qty: 90 3RF gabapentin 100 mg capsule 100 mg PO BID Qty: 180 3RF cholecalciferol (vitamin D3) 5,000 unit capsule 5,000 units PO QAM aspirin 81 mg tablet,delayed release (DR/EC) 81 mg PO QAM tamsulosin [Flomax] 0.4 mg capsule 0.4 mg PO QAM Qty: 90 3RF azelastine 137 mcg (0.1 %) aerosol,spray 1 - 2 sprays intranasal BID PRN (Reason: congestion) Qty: 1 Label Comments: use 1 to 2 sprays in each nostril daily up to twice per day fexofenadine 180 mg tablet 180 mg PO DAILY PRN (Reason: Congestion) Qty: 30 acetaminophen [Tylenol Extra Strength] 500 mg Tablet 500 mg PO Q6H PRN (Reason: Pain) potassium chloride 10 mEq tablet extended release 10 meq PO QAM Rx Instructions: 10 mEq PO 5 tab daily; mirtazapine [Remeron] 15 mg tablet 15 mg PO HS PRN (Reason: Sleep) ferrous sulfate 325 mg (65 mg iron) tablet,delayed release (DR/EC) 325 mg PO QAM Rx Instructions: buying OTC Magic Mouthwash 300 mL mouthwash 5 ml mucous membrane .COMPLEX PRN (Reason: mouth sores) Rx Instructions: 5 mL mucous membrane 2-3 times a day; Benadryl 12.5 mg/5 mL oral elixir; Maalox 200 mg-200 mg-20 mg/5 mL oral suspension; Xylocaine Viscous 2 % mucosal solution;[Generic substitution ok] 1:1:1 compound Per 300 mL Discontinued doxycycline monohydrate 100 mg capsule 100 mg PO BID Qty: 14 0RF Discharge Orders: Discharge Order (Routine); Ordered 02/07/22 Ordered By: Grace Carlos Admission Data Admit Date/Time: 02/03/22 18:45 Attending Provider: Jim Zaragoza Admit Provider: Nathaniel Anne Primary Care Provider: Theodora Ty Other Providers: Nathaniel Anne ; Pan Villeda ; [place] Other Interventions: Discharge Summary Assessment (RN) Last Done: 02/07/22 14:43 Supervising Physician Co-Signing Physician Notes I supervised Grace Carlos PA-C on the care of this patient. I interviewed and examined the patient independently of her yesterday, within the last 24h of discharge. The plan is as written in her note except for any following changes/exceptions: None 81yo F w/ hx of metastatic breast cancer who presents with Covid and nausea. She had some concern for pancreatitis vs. duodenitis, and GI was consulted, but never saw her. Started on empiric PPI BID and Ibrance held for 2 weeks per onc ology. Plan to follow up with GI and oncology. Coding Level of Care Code D/C DAY MANAGEMENT >30 MINS Diagnoses Pancreatitis K85.90 Diabetes mellitus E11.9 Depression F32.9 General weakness R53.1 Hypertension I10 Lung cancer C34.11 Laterality: right Lung location: upper lobe of lung Metastasis to bone C79.51 Metastatic breast cancer C50.919
[2022-02-07 14:44] VITALS: BP 155/88
== END 2022-02-07 16:03 | disposition home health service (06) ==
LOC: ED 12:41 → 2W 18:45 → SUATTDRO 18:45 → INTOOBSV 18:45 → 2W 19:51

== ENCOUNTER 2022-03-20 14:25 | Observation (INO) ==
[2022-03-20 15:17] LABS: Basophils # (auto) 0.04 K/uL (0-0.2); Basophils % (auto) 0.8 %; Eosinophils # (auto) 0.02 K/uL (0-0.50); Eosinophils % (auto) 0.4 %; Hematocrit (blood only) 30.9 % (34.1-44.9); Hemoglobin 10.2 g/dl (12.0-16.0); Immature Granulocytes # (auto) 0.02 K/uL (0.00-0.02); Immature Granulocytes % (auto) 0.4 %; Lymphocytes # (auto) 0.64 K/uL (1.2-3.4); Lymphocytes % (auto) 13.6 %; Mean Corpuscular Hemoglobin 33.1 pg (25.0-34.0); Mean Corpuscular Volume 100.3 fL (80.0-100.0); Mean Platelet Volume 9.7 fL (9.4-12.3); Monocytes # (auto) 0.39 K/uL (0.24-0.82); Monocytes % (auto) 8.3 %; Neutrophils # (auto) 3.61 K/uL (1.4-6.5); Neutrophils % (auto) 76.5 %; Platelet Count 253 K/uL (130-400); RDW Coefficient of Variation 17.8 % (11.5-14.5); RDW Standard Deviation 66.4 fL (36.4-46.3); Red Blood Count 3.08 M/uL (3.93-5.22); White Blood Count 4.72 K/ul (4.8-10.8)
[2022-03-20 15:32] LABS: INR 1.1 (0.9-1.1); Partial Thromboplastin Ratio 0.9; Partial Thromboplastin Time 24.8 Seconds (21.0-31.0); Prothrombin Time 11.8 Seconds (9.0-12.0)
[2022-03-20 15:42] LABS: Alanine Aminotransferase 6 U/L (7-52); Albumin Globulin Ratio 1.6 (0.9-2); Albumin Level 3.8 gm/dl (3.4-5.0); Alkaline Phosphatase 51 U/L (34-104); Anion Gap 15 (3-11); Aspartate Aminotransferase 14 U/L (13-39); BUN Creatinine Ratio 11.7 (10-20); Bilirubin,Total 0.6 mg/dl (0.2-1.0); Blood Urea Nitrogen 35 mg/dl (6-23); Calcium 8.6 mg/dl (8.5-10.1); Carbon Dioxide 23 mmol/L (21-32); Chloride 101 mmol/L (98-107); Est GFR (Non-African American) 13.8 ml/min; Globulin 2.4 gm/dl (2.5-4.0); Glucose 113 mg/dl (70-99(Fasting)); Magnesium 1.2 mg/dl (1.7-2.4); Sodium 139 mmol/L (136-145); Total Protein 6.2 gm/dl (6.0-8.3)
--- NOTE | 2022-03-20 16:42 | Electrocardiogram Report ---
Test Reason : Blood Pressure : / mmHG Vent. Rate : 069 BPM Atrial Rate : 069 BPM P-R Int : 142 ms QRS Dur : 080 ms QT Int : 416 ms P-R-T Axes : 059 038 076 degrees QTc Int : 445 ms Poor data quality, interpretation may be adversely affected Normal sinus rhythm Nonspecific ST and T wave abnormality Abnormal ECG When compared with ECG of 03-FEB-2022 16:11, Borderline criteria for Inferior infarct are no longer Present Nonspecific T wave abnormality now evident in Lateral leads Confirmed by Refugio Pascual ([id number]) on 03/20/2022 4:42:03 PM Referred By: Confirmed By:Juan C Pascual
[2022-03-20] MEDS ORDERED: ONDANSETRON INJ 2 MG/ML 2 ML VIAL IV STA (17:10)
[2022-03-20] MEDS ORDERED: SODIUM CHLORIDE 0.9% 1000ML 1,000 ML IV ONE (17:10)
--- NOTE | 2022-03-20 17:33 | Emergency Department Note ---
Impression & Plan Weakness, FREDDY (acute kidney injury), Acute dehydration, Hypomagnesemia, Acute UTI ED Provider Note NAME: BRITTNY MARTINEZ AGE: 82 SEX: F : 1940 ARRIVES VIA: Walk-In INFORMANT: [Patient] ED PROVIDER(S): [Darius Sepulveda MD] CHIEF COMPLAINT: Illness HISTORY OF PRESENT ILLNESS: The patient is an 82-year-old female with metastatic breast cancer. She is on chemotherapy. The patient has lost 60 pounds in a year and 16 pounds in the last month. She has a decreased appetite. She has felt weak and exhausted. Laboratory testing as an outpatient showed acute kidney injury. She was sent to the ED for evaluation and hospitalization. Patient denies any fever. She has had no urinary complaints. No flank pain. No abdominal pain. No cough or congestion or any respiratory complaints. The patient has had renal stones before although, she does not feel like she is suffering from a kidney stone today. REVIEW OF SYSTEMS: See HPI for pertinent positives and negatives. A total of ten systems were reviewed and were otherwise negative. PMHx/PSHx: See Below SOCIAL HISTORY: See Below. PHYSICAL EXAM: GENERAL: Patient is in no acute distress. HEENT: No acute trauma, normocephalic atraumatic, mucous membranes moist, no nasal congestion, no scleral icterus. NECK: No stridor, no adenopathy, no meningismus, trachea is midline. LUNGS: Clear to auscultation bilaterally, no wheeze, no rhonchi, breath sounds equal. HEART: Without murmurs gallops or rubs, regular rate and rhythm. ABDOMEN: Soft, nontender, bowel sounds positive, no peritonitis. EXTREMITIES: No cyanosis, mild bilateral pedal edema, full range of motion of all the joints without pain or difficulty, no signs for acute trauma. NEUROLOGIC: Oriented x 3, no acute motor or sensory deficits, no focal weakness. SKIN: No rash, no jaundice, no diaphoresis. DIFFERENTIAL DIAGNOSIS: Infection, dehydration, UTI, COVID-19, metabolic abnormality, hypo/hyperglycemia, electrolyte disturbance, anemia, hypoxia, cardiac sources, intracerebral event, toxicologic issues, stroke, TIA, as well as other pathologies. EMERGENCY DEPARTMENT COURSE/PROCEDURES: ECG: Indication was weakness. The ECG shows a normal sinus rhythm with a rate of 69. There is some diffuse nonspecific T wave change. There is no ST elevation. No PVCs. The QTc is 445. Continuous Cardiac Monitoring: An order was placed for continuous cardiac monitoring. The monitor shows a rate of 70 with normal sinus rhythm. MEDICAL DECISION MAKING: There is no leukocytosis. The patient is anemic but this appears baseline when looking back at previous testing. There was a normal platelet count. No coagulopathy. There was evidence for acute kidney injury with a creatinine of 3. Magnesium was quite low at 1.2. No concerning liver enzyme elevation. Urinalysis does show evidence for infection. COVID test returned negative. Abdominal and pelvis CT did not show hydronephrosis. No bowel obstruction or acute surgical pathology by CT imaging. Chest x-ray did not show pneumonia or CHF, chronic changes were seen. Patient received IV saline, 1 L. She was given IV Zofran for nausea. She received IV magnesium. She was given IV ceftriaxone for the UTI. The patient is in need of a hospital stay. She has acute kidney injury, she is dehydrated, she has electrolyte abnormalities and a urinary infection. I spoke with the patient and case management, the on-call hospitalist was consulted. 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 Brother No problems noted. Sister No problems noted. Sister No problems noted. Son No problems noted. 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: No Beliefs That Will Affect Care: None marital status: / Current Living Situation: Alone current occupational status: unemployed and retired 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 How many Children do You have: 1 Other Information That Helps Us Care for You: No Feels Safe at Home: Yes Safety Concerns: Feels Safe At This Time Childhood Exposure to Second-Hand Smoke: Yes caffeine: Yes during the past year weight has: decreased > 10 lbs Dental Care, Regularly: No Physical Activity Frequency: Does not Exercise Seatbelt Use: sometimes Sunscreen Use: No Assistive Devices: Contacts and Walker Allergies Allergies Allergy/AdvReac Type Severity Reaction Status Date / Time cefuroxime Allergy Intermediate petechaie Verified 03/20/22 19:46 influenza virus vaccine, AdvReac Intermediate swollen Verified 03/20/22 19:46 specific arm for months tetanus toxoid, adsorbed AdvReac Intermediate swollen Verified 03/20/22 19:46 arm for months Home Meds Home Medications Medication Instructions Recorded Confirmed azelastine 137 mcg (0.1 %) nasal 1 - 2 sprays intranasal BID PRN 02/22/19 03/20/22 spray aerosol congestion #1 mL fexofenadine 180 mg tablet 180 mg PO DAILY PRN Congestion #30 02/22/19 03/20/22 tabs cholecalciferol (vitamin D3) 125 5,000 units PO QAM 04/18/19 03/20/22 mcg (5,000 unit) capsule acetaminophen 500 mg tablet 500 mg PO Q6H PRN Pain 01/09/20 03/20/22 (Tylenol Extra Strength) aspirin 81 mg tablet,delayed 81 mg PO QAM 08/27/20 03/20/22 release fulvestrant 250 mg/5 mL 500 mg IM .COMPLEX 01/29/21 03/20/22 intramuscular syringe (Faslodex) palbociclib 100 mg capsule 100 mg PO QAM 01/29/21 03/20/22 (Ibrance) Magic Mouthwash 300 mL mouthwash 5 ml mucous membrane .COMPLEX PRN 12/03/21 1 mouth sores ferrous sulfate 325 mg (65 mg 325 mg PO QAM 12/03/21 03/20/22 iron) tablet,delayed release mirtazapine 15 mg tablet (Remeron) 15 mg PO HS PRN Sleep 12/03/21 03/20/22 potassium chloride 10 mEq 50 meq PO QAM 12/03/21 03/20/22 tablet,extended release Previous Rx's Medication Instructions Recorded atenolol 50 mg tablet 50 mg PO QAM #90 tabs 04/30/21 furosemide 40 mg tablet 40 mg PO QAM #90 tabs 04/30/21 metformin 500 mg tablet 500 mg PO BID #180 tabs 04/30/21 sertraline 50 mg tablet 50 mg PO QAM #90 tabs 04/30/21 allopurinol 100 mg tablet 100 mg PO QAM #90 tabs 07/29/21 gabapentin 100 mg capsule 100 mg PO BID #180 caps 09/16/21 tamsulosin 0.4 mg capsule (Flomax) 0.4 mg PO QAM #90 caps 01/27/22 magnesium oxide 400 mg (241.3 mg 400 mg PO BID #60 tabs 02/07/22 magnesium) tablet dronabinol 5 mg capsule (Marinol) 5 mg PO BID #60 caps 03/17/22 pantoprazole 40 mg tablet,delayed 40 mg PO BID #60 tabs 03/17/22 release ondansetron HCl 8 mg tablet 8 mg PO Q8H PRN nausea and 03/18/22 vomiting #30 tabs Results & Data (ED) Vital Signs Vital Signs - 24 hr 03/20/22 14:38 03/20/22 16:49 03/20/22 17:53 Temperature 36.5 C Temperature Source Temporal Artery Scan Pulse Rate 78 Pulse Rate [Right Finger] 70 64 Pulse Rhythm [Right Finger] Regular Pulse Strength [Right Finger] Normal Respiratory Rate 18 20 14 Respiratory Effort / Characteristics Non-Labored Spontaneous Respiratory Depth Normal Normal Respiratory Pattern Regular Blood Pressure 100/57 L Blood Pressure [Right Arm] 113/60 106/55 L Blood Pressure Mean 71 Blood Pressure Mean [Right Arm] 77 72 Pulse Oximetry 95 98 98 Oxygen Delivery Method Room Air Room Air Room Air Sepsis Recent Fever Within 48 Hours No Sepsis New/Unexplained Change in Mental Status No Sepsis Action Taken by Nursing No Action Required 03/20/22 17:50 03/20/22 18:00 Temperature Temperature Source Pulse Rate 66 64 Pulse Rate [Right Finger] Pulse Rhythm [Right Finger] Pulse Strength [Right Finger] Respiratory Rate 20 17 Respiratory Effort / Characteristics Respiratory Depth Respiratory Pattern Blood Pressure 106/55 L 114/50 L Blood Pressure [Right Arm] Blood Pressure Mean 72 71 Blood Pressure Mean [Right Arm] Pulse Oximetry 98 98 Oxygen Delivery Method Sepsis Recent Fever Within 48 Hours Sepsis New/Unexplained Change in Mental Status Sepsis Action Taken by Half-Way Medications Current Medication List: was personally reviewed by me Laboratory Data Attestation: I reviewed the patient's lab results. Result diagrams: 03/20/22 15:05 03/20/22 15:05 Lab Results 03/20/22 03/20/22 03/20/22 Range/Units 15:05 15:05 15:05 WBC 4.72 L (4.8-10.8) K/ul RBC 3.08 L (3.93-5.22) M/uL Hgb 10.2 L (12.0-16.0) g/dl Hct 30.9 L (34.1-44.9) % MCV 100.3 H (80.0-100.0) fL MCH 33.1 (25.0-34.0) pg MCHC 33.0 (32.0-36.0) g/dL RDW Std Deviation 66.4 H (36.4-46.3) fL RDW Coeff of Rose 17.8 H (11.5-14.5) % Plt Count 253 (130-400) K/uL MPV 9.7 (9.4-12.3) fL Immature Gran % (Auto) 0.4 % Neut % (Auto) 76.5 % Lymph % (Auto) 13.6 % Warren % (Auto) 8.3 % Eos % (Auto) 0.4 % Baso % (Auto) 0.8 % Neut # (Auto) 3.61 (1.4-6.5) K/uL Lymph # (Auto) 0.64 L (1.2-3.4) K/uL Warren # (Auto) 0.39 (0.24-0.82) K/uL Eos # (Auto) 0.02 (0-0.50) K/uL Baso # (Auto) 0.04 (0-0.2) K/uL Immature Gran # (Auto) 0.02 (0.00-0.02) K/uL PT 11.8 (9.0-12.0) Seconds INR 1.1 (0.9-1.1) APTT 24.8 (21.0-31.0) Seconds PTT Ratio 0.9 Sodium 139 (136-145) mmol/L Potassium 4.0 (3.5-5.1) mmol/L Chloride 101 (98-107) mmol/L Carbon Dioxide 23 (21-32) mmol/L Anion Gap 15 H (3-11) BUN 35 H (6-23) mg/dl Creatinine 3.00 H (0.6-1.2) mg/dl Est Cr Clr Drug Dosing Not Reportable Est GFR ( Amer) 16.0 ml/min Est GFR (Non-Af Amer) 13.8 ml/min BUN/Creatinine Ratio 11.7 (10-20) Glucose 113 H (70-99(Fasting)) mg/dl Calcium 8.6 (8.5-10.1) mg/dl Magnesium 1.2 L (1.7-2.4) mg/dl Total Bilirubin 0.6 (0.2-1.0) mg/dl AST 14 (13-39) U/L ALT 6 L (7-52) U/L Alkaline Phosphatase 51 (34-104) U/L Total Protein 6.2 (6.0-8.3) gm/dl Albumin 3.8 (3.4-5.0) gm/dl Globulin 2.4 L (2.5-4.0) gm/dl Albumin/Globulin Ratio 1.6 (0.9-2) Urine Color Urine Appearance (Clear) Urine pH (4.5-7.5) Ur Specific [place] (1.000-1.030) Urine Protein (Negative) Urine Glucose (UA) (Negative) Urine Ketones (Negative) Urine Blood (Negative) Urine Nitrite (Negative) Urine Bilirubin (Negative) Urine Urobilinogen (Negative) Ur Leukocyte Esterase (Negative) Urine WBC (Auto) (0-5) /hpf Urine RBC (Auto) (0-4) /hpf U Hyaline Cast (Auto) (0-5) /lpf U Epithel Cells (Auto) (0-5) /lpf Urine Bacteria (Auto) (Negative) SARS-CoV-2, RNA, NAAT (NEGATIVE) 03/20/22 03/20/22 Range/Units 17:13 17:26 WBC (4.8-10.8) K/ul RBC (3.93-5.22) M/uL Hgb (12.0-16.0) g/dl Hct (34.1-44.9) % MCV (80.0-100.0) fL MCH (25.0-34.0) pg MCHC (32.0-36.0) g/dL RDW Std Deviation (36.4-46.3) fL RDW Coeff of Rose (11.5-14.5) % Plt Count (130-400) K/uL MPV (9.4-12.3) fL Immature Gran % (Auto) % Neut % (Auto) % Lymph % (Auto) % Warren % (Auto) % Eos % (Auto) % Baso % (Auto) % Neut # (Auto) (1.4-6.5) K/uL Lymph # (Auto) (1.2-3.4) K/uL Warren # (Auto) (0.24-0.82) K/uL Eos # (Auto) (0-0.50) K/uL Baso # (Auto) (0-0.2) K/uL Immature Gran # (Auto) (0.00-0.02) K/uL PT (9.0-12.0) Seconds INR (0.9-1.1) APTT (21.0-31.0) Seconds PTT Ratio Sodium (136-145) mmol/L Potassium (3.5-5.1) mmol/L Chloride (98-107) mmol/L Carbon Dioxide (21-32) mmol/L Anion Gap (3-11) BUN (6-23) mg/dl Creatinine (0.6-1.2) mg/dl Est Cr Clr Drug Dosing Est GFR ( Amer) ml/min Est GFR (Non-Af Amer) ml/min BUN/Creatinine Ratio (10-20) Glucose (70-99(Fasting)) mg/dl Calcium (8.5-10.1) mg/dl Magnesium (1.7-2.4) mg/dl Total Bilirubin (0.2-1.0) mg/dl AST (13-39) U/L ALT (7-52) U/L Alkaline Phosphatase (34-104) U/L Total Protein (6.0-8.3) gm/dl Albumin (3.4-5.0) gm/dl Globulin (2.5-4.0) gm/dl Albumin/Globulin Ratio (0.9-2) Urine Color Yellow Urine Appearance Cloudy A (Clear) Urine pH 5.0 (4.5-7.5) Ur Specific [place] 1.009 (1.000-1.030) Urine Protein Negative (Negative) Urine Glucose (UA) Negative (Negative) Urine Ketones Negative (Negative) Urine Blood Trace H (Negative) Urine Nitrite Negative (Negative) Urine Bilirubin Negative (Negative) Urine Urobilinogen Negative (Negative) Ur Leukocyte Esterase 3+ H (Negative) Urine WBC (Auto) >30 H (0-5) /hpf Urine RBC (Auto) 0-4 (0-4) /hpf U Hyaline Cast (Auto) 5-10 H (0-5) /lpf U Epithel Cells (Auto) >30 H (0-5) /lpf Urine Bacteria (Auto) 4+ H (Negative) SARS-CoV-2, RNA, NAAT NEGATIVE (NEGATIVE) Administered Medications Dronabinol (Dronabinol 2.5 Mg Cap) 5 mg PO BID@0900,1800 JOSE Stop: 04/19/22 19:29 Last Admin: 03/20/22 19:35 Dose: 5 mg Documented By: NAOMIE Gabapentin (Gabapentin 100 Mg Cap) 100 mg PO BID JOSE Stop: 04/19/22 20:59 Last Admin: 03/20/22 22:12 Dose: 100 mg Documented By: PALLAVI Magnesium Oxide (Magnesium Oxide 400 Mg Tab) 400 mg PO BID JOSE Stop: 04/19/22 20:59 Last Admin: 03/20/22 22:12 Dose: 400 mg Documented By: PALLAVI Pantoprazole Sodium (Pantoprazole 40 Mg Tab) 40 mg PO BID JOSE Stop: 04/19/22 20:59 Last Admin: 03/20/22 22:12 Dose: 40 mg Documented By: PALLAVI Discontinued Medications Sodium Chloride (Nss 1000ml) 1,000 mls @ 999 mls/hr IV .Q1H1M ONE Stop: 03/20/22 18:10 Last Infusion: 03/20/22 18:22 Dose: 0 mls/hr Documented By: Admin: 03/20/22 17:20 Dose: 999 mls/hr Documented By: ZARINA Magnesium Sulfate/Dextrose (Magnesium Sulfate / D5w) 1 gm in 100 mls @ 100 mls/hr IV Q1H JOSE Stop: 03/20/22 19:10 Last Infusion: 03/20/22 21:15 Dose: 0 mls/hr Documented By: Admin: 03/20/22 19:38 Dose: 100 mls/hr Documented By: Infusion: 03/20/22 19:02 Dose: 0 mls/hr Documented By: Admin: 03/20/22 18:02 Dose: 100 mls/hr Documented By: ZARINA Ceftriaxone Sodium (Rocephin) 2,000 mg in 70 mls @ 140 mls/hr IV NOW STA Stop: 03/20/22 18:40 Last Infusion: 03/20/22 19:21 Dose: 0 mls/hr Documented By: Admin: 03/20/22 18:59 Dose: 140 mls/hr Documented By: NAOMIE Ondansetron HCl (Ondansetron Inj 2 Mg/Ml 2 Ml Vial) 4 mg IV NOW STA Stop: 03/20/22 17:11 Last Admin: 03/20/22 18:02 Dose: 4 mg Documented By: ZARINA Imaging Data Radiologist's Impression: Chest X-Ray 03/20/22 14:44 SINGLE VIEW CHEST CLINICAL HISTORY: Dyspnea. FINDINGS: An AP, portable, upright chest radiograph is compared to study dated 02/03/2022 and correlated with chest CT dated 12/30/2021. The cardiomediastinal silhouette is unremarkable noting atherosclerotic calcification of the thoracic aorta. Fibrotic change at the right apex is similar to previous. Chronic residual thickening is unchanged. There is minimal bibasilar scarr ing/atelectasis. No airspace consolidation typical for pneumonia or pleural effusion is identified. No pneumothorax is seen. The skeletal structures are osteopenic. The bony thorax is grossly intact. IMPRESSION: Chronic changes as above with no acute cardiopulmonary abnormality identified. ACT 112: Negative or not required by law. Electronically signed by: Darius Tanner M.D. 03/20/2022 5:40 PM Abdomen/Pelvis CT 03/20/22 17:10 CT SCAN OF THE ABDOMEN AND PELVIS WITHOUT IV CONTRAST CLINICAL HISTORY: Metastatic breast cancer. Weight loss. Decreased renal function. COMPARISON STUDY: Abdominal CT dated 02/03/2022. TECHNIQUE: CT scan of the abdomen and pelvis is performed from the lung bases to the proximal femora. Images are reviewed in the axial, sagittal, and coronal planes. IV contrast was not administered for this examination. A dose lowering technique was utilized adhering to the principles of ALARA. CT DOSE: 303.44 mGy.cm FINDINGS: Lung bases: The heart is normal in size and without pericardial effusion. The coronary arteries and mitral annulus are densely calcified. There is diminished attenuation of the cardiac blood pool as compared to the myocardium suggesting anemia. The lung bases are clear noting mild bibasilar scarring/atelectasis. There is evidence of bilateral mastectomy. Liver: The unenhanced liver is normal in size, contour, and attenuation. There is no intrahepatic biliary ductal dilatation. Gallbladder: There are numerous tiny gallstones without CT evidence of acute cholecystitis. Spleen: Normal in size and attenuation. Pancreas: The unenhanced pancreas is moderately atrophic and grossly unremarkab le. Perihepatic inflammation seen on 02/03/2022 has resolved. Adrenal glands: Unremarkable. Kidneys: The unenhanced kidneys demonstrate cortical atrophy and are without hydronephrosis. There are at least 4 punctate nonobstructing left renal calculi. A 4 mm nonobstructing calculus is seen in the right kidney. No ureteral stone is identified. There there are 2 exophytic cysts on the left measuring up to 1.4 cm. Abdominal vasculature: The abdominal aorta is normal in course and caliber noting moderate atherosclerotic calcification. Bowel: Chronic gastric wall thickening is similar to previous. There is mild colonic diverticulosis without CT evidence of acute diverticulitis. No bowel obstruction is seen. The appendix is not visualized. Peritoneum: There is no intraperitoneal free air or abdominal ascites. There is a large fat-containing umbilical hernia. Lymphadenopathy: None. Pelvic viscera: The bladder is normal as visualized. The uterus is surgically absent. No adnexal lesion is seen. Skeletal structures: Findings extensive/diffuse osteoblastic metastatic disease hasn't appreciably changed as compared to 02/03/2022. A minimal superior endplate compression deformity of T12 is unchanged. There is mild lumbosacral spondylosis. IMPRESSION: 1. No acute infectious or inflammatory findings are identified in the abdomen or pelvis. 2. Findings of diffuse osteoblastic metastatic disease is similar to previous. 3. Bilateral nephrolithiasis. 4. Cholelithiasis. 5. Chronic gastric wall thickening is similar to previous. Additional findings as above. ACT 112: Negative or not required by law. Electronically signed by: Darius Tanner M.D. 03/20/2022 5:59 PM Discharge Plan Visit Data Chief Complaint: Illness Stated Complaint: DEHYDRATION, GI DISTRESS ED Provider: Darius Sepulveda Discharge Problem: Weakness, FREDDY (acute kidney injury), Acute dehydration, Hypomagnesemia, Acute UTI Patient Disposition: Admitted As Inpatient Condition: Fair Discharge Instructions Interventions: ED Discharge Assessment Last Done: 03/20/22 19:32
--- NOTE | 2022-03-20 17:41 | XRay Report ---
SINGLE VIEW CHEST CLINICAL HISTORY: Dyspnea. FINDINGS: An AP, portable, upright chest radiograph is compared to study dated 02/03/2022 and correlat ed with chest CT dated 12/30/2021. The cardiomediastinal silhouette is unremarkable noting atheroscler otic calcification of the thoracic aorta. Fibrotic change at the right apex is similar to previous. C hronic residual thickening is unchanged. There is minimal bibasilar scarring/atelectasis. No airspace consolidation typical for pneumonia or pleural effusion is identified. No pneumothorax is seen. The skeletal structures are osteopenic. The bony thorax is grossly intact. IMPRESSION: Chronic changes as above with no acute cardiopulmonary abnormality identified. ACT 112: Negative or not required by law. Electronically signed by: Darius Tanner M.D. 03/20/2022 5:40 PM
[2022-03-20 17:52] LABS: Appearance Urine Cloudy (Clear); Bacteria Urine Automated 4+ (Negative); Bilirubin Urine Negative (Negative); Blood Urine Trace (Negative); Color Urine Yellow; Epithelial Cell Urine Auto >30 /lpf (0-5); Glucose Urine UA Negative (Negative); Ketones Urine Negative (Negative); Leukocyte Esterase Urine 3+ (Negative); Nitrite Urine Negative (Negative); Protein Urine Negative (Negative); RBC Urine Automated 0-4 /hpf (0-4); Specific Gravity Urine 1.009 (1.000-1.030); Urobilinogen Urine Negative (Negative); WBC Urine Automated >30 /hpf (0-5)
--- NOTE | 2022-03-20 18:01 | CT Scan Report ---
CT SCAN OF THE ABDOMEN AND PELVIS WITHOUT IV CONTRAST CLINICAL HISTORY: Metastatic breast cancer. Weight loss. Decreased renal function. COMPARISON STUDY: Abdominal CT dated 02/03/2022. TECHNIQUE: CT scan of the abdomen and pelvis is performed from the lung bases to the proximal femora. Images are reviewed in the axial, sagittal, and coronal planes. IV contrast was not administered for this examination. A dose lowering technique was utilized adhering to the principles of ALARA. CT DOSE: 303.44 mGy.cm FINDINGS: Lung bases: The heart is normal in size and without pericardial effusion. The coronary arteries and m itral annulus are densely calcified. There is diminished attenuation of the cardiac blood pool as com pared to the myocardium suggesting anemia. The lung bases are clear noting mild bibasilar scarring/at electasis. There is evidence of bilateral mastectomy. Liver: The unenhanced liver is normal in size, contour, and attenuation. There is no intrahepatic dylan iary ductal dilatation. Gallbladder: There are numerous tiny gallstones without CT evidence of acute cholecystitis. Spleen: Normal in size and attenuation. Pancreas: The unenhanced pancreas is moderately atrophic and grossly unremarkable. Perihepatic inflam mation seen on 02/03/2022 has resolved. Adrenal glands: Unremarkable. Kidneys: The unenhanced kidneys demonstrate cortical atrophy and are without hydronephrosis. There ar e at least 4 punctate nonobstructing left renal calculi. A 4 mm nonobstructing calculus is seen in th e right kidney. No ureteral stone is identified. There there are 2 exophytic cysts on the left measur ing up to 1.4 cm. Abdominal vasculature: The abdominal aorta is normal in course and caliber noting moderate atheroscle rotic calcification. Bowel: Chronic gastric wall thickening is similar to previous. There is mild colonic diverticulosis w ithout CT evidence of acute diverticulitis. No bowel obstruction is seen. The appendix is not visual ized. Peritoneum: There is no intraperitoneal free air or abdominal ascites. There is a large fat-containin g umbilical hernia. Lymphadenopathy: None. Pelvic viscera: The bladder is normal as visualized. The uterus is surgically absent. No adnexal lesi on is seen. Skeletal structures: Findings extensive/diffuse osteoblastic metastatic disease hasn't appreciably ch anged as compared to 02/03/2022. A minimal superior endplate compression deformity of T12 is unchanged . There is mild lumbosacral spondylosis. IMPRESSION: 1. No acute infectious or inflammatory findings are identified in the abdomen or pelvis. 2. Findings of diffuse osteoblastic metastatic disease is similar to previous. 3. Bilateral nephrolithiasis. 4. Cholelithiasis. 5. Chronic gastric wall thickening is similar to previous. Additional findings as above. ACT 112: Negative or not required by law. Electronically signed by: Darius Tanner M.D. 03/20/2022 5:59 PM
[2022-03-20] MEDS: MAGNESIUM SULFATE / D5W 1 GM/100 ML BAG IV SCH ×2 (18:02→19:38)
[2022-03-20] MEDS ORDERED: cefTRIAXone SODIUM 2,000 MG/70 ML BAG IV STA (18:11)
[2022-03-20] MEDS ORDERED: NON-FORMULARY MEDICATION (Magic Mouthwash 300 mL mouthwash) mucous membrane PRN (18:38)
[2022-03-20] MEDS ORDERED: ACETAMINOPHEN 500 MG TAB PO PRN (18:38)
[2022-03-20] MEDS ORDERED: MIRTAZAPINE TAB 15 MG TAB PO PRN (18:43)
--- NOTE | 2022-03-20 18:51 | History & Physical Report ---
Date of Service March 20, 2022 Assessment & Plan (1) FREDDY (acute kidney injury): Plan: Patient with acute kidney injury. Likely from poor appetite will place on IVF. received 1 liter of NS. Patient has not been able to tolerate solid food for past month, only tolerating liquid diet. will consider nutrition consult. diagnosed with pancreatitis vs cuodenitis in the past. (2) Weakness: Plan: from above. (3) Metastatic breast cancer: Plan: Metastatic breast cancer, history of apical lung nsclc Breast cancer BI-RADS Category 5 on 11/2019, biopsy positive for ER positive HER2 negative breast cancer. PET scan showed right apical lung mass with scattered osteoblastic metastatic lesions with FDG uptake. Underwent bilateral mastectomies on 12/2019 with negative lymph nodes. Apical lung lesion was not able to be easily accessed with bronchoscopy or otherwise, follow-up PET scan showed lung lesion and innumerable bony metastatic disease. Left iliac core biopsy 02/2020 showed metastatic carcinoma, consistent with breast primary with lobular carcinoma. Started anastrozole and Zometa every 28 days. Last follow- up 09/2021 with [facility]. on Ibrance therapy, Faslodex injections monthly. will hold chemo agents. S/p radiation to apical lung NSCLC, unable to be biopsied (4) Diabetes mellitus: Plan: latest A!C is below 6.5 will repeat History of Present Illness Chief Complaint: worsening blood work Primary Care Provider: HONEY Tellez 82 yo female reports having a 1 month history of no longer having an appetite. She reports having lost 60 pounts. She feels like she is wasting away for the past month. She reports no improement from her recent discharge. Patient reports being sent back to the hospital due to her poor kidney numbers. Allergies Allergy/AdvReac Type Severity Reaction Status Date / Time cefuroxime Allergy Intermediate petechaie Verified 03/20/22 19:46 influenza virus vaccine, AdvReac Intermediate swollen Verified 03/20/22 19:46 specific arm for months tetanus toxoid, adsorbed AdvReac Intermediate swollen Verified 03/20/22 19:46 arm for months Home Medications Medication Instructions Recorded Confirmed Type azelastine 137 mcg (0.1 %) nasal 1 - 2 sprays intranasal BID PRN 02/22/19 03/20/22 History spray aerosol congestion #1 mL fexofenadine 180 mg tablet 180 mg PO DAILY PRN Congestion #30 02/22/19 03/20/22 History tabs cholecalciferol (vitamin D3) 125 5,000 units PO QAM 04/18/19 03/20/22 History mcg (5,000 unit) capsule acetaminophen 500 mg tablet 500 mg PO Q6H PRN Pain 01/09/20 03/20/22 History (Tylenol Extra Strength) aspirin 81 mg tablet,delayed 81 mg PO QAM 08/27/20 03/20/22 History release fulvestrant 250 mg/5 mL 500 mg IM .COMPLEX 01/29/21 03/20/22 History intramuscular syringe (Faslodex) palbociclib 100 mg capsule 100 mg PO QAM 01/29/21 03/20/22 History (Ibrance) atenolol 50 mg tablet 50 mg PO QAM #90 tabs 04/30/21 03/20/22 Rx furosemide 40 mg tablet 40 mg PO QAM #90 tabs 04/30/21 03/20/22 Rx metformin 500 mg tablet 500 mg PO BID #180 tabs 04/30/21 03/20/22 Rx sertraline 50 mg tablet 50 mg PO QAM #90 tabs 04/30/21 03/20/22 Rx allopurinol 100 mg tablet 100 mg PO QAM #90 tabs 07/29/21 03/20/22 Rx gabapentin 100 mg capsule 100 mg PO BID #180 caps 09/16/21 03/20/22 Rx Magic Mouthwash 300 mL mouthwash 5 ml mucous membrane .COMPLEX PRN 12/03/21 03/20/22 History mouth sores ferrous sulfate 325 mg (65 mg 325 mg PO QAM 12/03/21 03/20/22 History iron) tablet,delayed release mirtazapine 15 mg tablet (Remeron) 15 mg PO HS PRN Sleep 12/03/21 03/20/22 History potassium chloride 10 mEq 50 meq PO QAM 12/03/21 03/20/22 History tablet,extended release tamsulosin 0.4 mg capsule (Flomax) 0.4 mg PO QAM #90 caps 01/27/22 03/20/22 Rx magnesium oxide 400 mg (241.3 mg 400 mg PO BID #60 tabs 02/07/22 03/20/22 Rx magnesium) tablet dronabinol 5 mg capsule (Marinol) 5 mg PO BID #60 caps 03/17/22 03/20/22 Rx pantoprazole 40 mg tablet,delayed 40 mg PO BID #60 tabs 03/17/22 03/20/22 Rx release ondansetron HCl 8 mg tablet 8 mg PO Q8H PRN nausea and 03/18/22 03/20/22 Rx vomiting #30 tabs Past Med/Surg History Medical History Allergic rhinitis Anemia Chronic anemia warranting intermittent PRBCs per heme/onc ([facility]) Scheduled for 2U PRBCs 12/04/21 @ [facility] (last hemoglobin 12/02 was 7.6) Chronic back pain CKD (chronic kidney disease) Depression Diabetes mellitus Gout Hypertension Insomnia Kidney calculi Lung cancer 2019-CHEMOTHERAPY AND RADIATION Macular degeneration Metastatic breast cancer Migraine HX On home oxygen therapy 1L HS via [place] Pancreatitis Ulnar neuropathy Right arm S/P surgery 2019 Surgical History H/O bilateral mastectomy 2019 History of appendectomy History of breast biopsy Multiple History of bronchoscopy History of cataract surgery BOTH EYES 2014 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 Brother No problems noted. Sister No problems noted. Sister No problems noted. Son No problems noted. 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 How many Children do You have: 1 Other Information That Helps Us Care for You: No Feels Safe at Home: Yes Safety Concerns: Feels Safe At This Time Childhood Exposure to Second-Hand Smoke: Yes caffeine: Yes during the past year weight has: decreased > 10 lbs Dental Care, Regularly: No Physical Activity Frequency: Does not Exercise Seatbelt Use: sometimes Sunscreen Use: No Assistive Devices: Contacts and Walker Review of Systems Constitutional: + weakness and + weight loss; no fever Eyes: no blind spots Ear, Nose, Mouth, Throat: no ear pain Respiratory: no cough Cardiovascular: no chest pain Gastrointestinal: + belching, + early satiety, + nausea and + vomiting Genitourinary: no dysuria Musculoskeletal: no back pain Integumentary: no acne Neurologic: no gait abnormality Psychiatric: no behavioral changes Endocrine: + fatigue Hematologic / Lymphatic: no easy bleeding Allergy / Immunological: + GI upset with certain foods Physical Exam Constitutional: WD/WN, vitals as above well developed and + ill appearing; + not well nourished Eyes: PERRL, conjunctivae normal, anicteric sclerae ENMT: external ear and nose normal, oropharynx normal Neck: trachea midline, no thyromegaly Respiratory: normal respiratory effort, lungs clear to auscultation Cardiovascular: Rate/Rhythm: regular rate and regular rhythm Gastrointestinal (Abdomen): normal bowel sounds, soft, nontender, no hepatosplenomegaly Musculoskeletal: no cyanosis or clubbing, extremities motor strength 5/5 Skin: no rashes, warm and dry Neurologic: PERRL, EOMI, accommodation nl, no face palsy, no dysarthria Psychiatric: A+Ox3, euthymic affect Lymphatic: no cervical or axillary lymphadenopathy Results & Data [facility] Vital Signs (Past 12 Hours) Vital Signs Temp Pulse Pulse Resp BP BP Pulse Ox 03/20/22 17:53 64 14 106/55 L 98 03/20/22 16:49 70 20 113/60 98 03/20/22 14:38 36.5 C 78 18 100/57 L 95 O2 Del Method 03/20/22 17:53 Room Air 03/20/22 16:49 Room Air 03/20/22 14:38 Room Air PG Care Time/CCT Total # of Minutes Spent Total Time Spent with Patient: Total time spent is greater than 50% in coordination of care (as documented) at patient's floor/unit and/or counseling patient: Coding Level of Care Code 55508 Initial Inpt Care Lvl 3 Diagnoses FREDDY (acute kidney injury) N17.9 Weakness R53.1 Metastatic breast cancer C50.919 Diabetes mellitus E11.9
[2022-03-20] MEDS ORDERED: Magic Mouthwash 240mL PO PRN (19:21)
[2022-03-20] MEDS: PANTOprazole 40 MG TAB PO SCH (22:12)
[2022-03-20] MEDS: MAGNESIUM OXIDE 400 MG TAB PO SCH (22:12)
[2022-03-20] MEDS: GABAPENTIN 100 MG CAP PO SCH (22:12)
[2022-03-21] MEDS ORDERED: SODIUM CHLORIDE 0.9% 1000ML 1,000 ML IV SCH (07:15)
[2022-03-21 08:00] LABS: Hematocrit (blood only) 27.4 % (34.1-44.9); Mean Corpuscular Hemoglobin 32.8 pg (25.0-34.0); Mean Corpuscular Hgb Conc 32.8 g/dL (32.0-36.0); Mean Platelet Volume 9.7 fL (9.4-12.3); Platelet Count 225 K/uL (130-400); RDW Coefficient of Variation 17.7 % (11.5-14.5); RDW Standard Deviation 66.1 fL (36.4-46.3); Red Blood Count 2.74 M/uL (3.93-5.22); White Blood Count 4.38 K/ul (4.8-10.8)
[2022-03-21 08:35] LABS: Calcium 7.9 mg/dl (8.5-10.1); Creatinine Clr Calc Pharmacy 14.5 ml/min; Est GFR (African American) 18.5 ml/min; Potassium 3.2 mmol/L (3.5-5.1)
[2022-03-21] MEDS: ONDANSETRON 8MG OD TAB PO PRN (09:16)
[2022-03-21] MEDS: ATENOLOL 50 MG TABLET PO SCH (09:32)
[2022-03-21] MEDS: ASPIRIN 81 MG ECTAB PO SCH (09:32)
[2022-03-21] MEDS: SERTRALINE HCL 50 MG TABLET PO SCH (09:32)
[2022-03-21] MEDS: MAGNESIUM OXIDE 400 MG TAB PO SCH ×2 (09:32→19:38)
[2022-03-21] MEDS: allopurinoL 100 MG TAB PO SCH (09:32)
[2022-03-21] MEDS: CHOLECALCIFEROL 5,000 UNITS 125 MCG TAB PO SCH (09:32)
[2022-03-21] MEDS: GABAPENTIN 100 MG CAP PO SCH ×2 (09:32→19:38)
[2022-03-21] MEDS: PANTOprazole 40 MG TAB PO SCH ×2 (09:32→19:38)
[2022-03-21] MEDS: TAMSULOSIN HCL 0.4 MG CAP PO SCH (09:32)
[2022-03-21] MEDS: FERROUS SULFATE 325 MG TAB PO SCH (09:32)
[2022-03-21 11:41] LABS: Estimated Average Glucose 111 mg/dl; Hemoglobin A1C 5.5 % (4.5-5.6)
[2022-03-21] MEDS: HEPARIN SOD 5,000 UNIT/0.5 ML VIAL SQ SCH ×2 (15:37→22:07)
[2022-03-22] MEDS: HEPARIN SOD 5,000 UNIT/0.5 ML VIAL SQ SCH ×3 (06:30→21:38)
--- NOTE | 2022-03-22 07:17 | Hospitalist Progress Note ---
Date of Service March 22, 2022 Assessment & Plan (1) FREDDY (acute kidney injury): Plan: 82-year-old female past medical history significant for metastatic breast cancer, non-small cell lung cancer, CKD with a baseline creatinine of 1.7, nephrolithiasis, diabetes, hypertension admitted for weakness and FREDDY on CKD, noted to have UTI on admission. FREDDY on CKD: Patient's baseline creatinine is around 1.7. On admission patient with a creatinine of 3.0, which is since down trended to 2.4 with gentle IV fluids. We will continue IV fluids. Prerenal FREDDY given history of poor p.o. intake for over a month at this point. Daily BMP. (2) Weakness: Plan: Likely secondary to FREDDY, UTI. PT and OT consults. MRI brain pending. (3) Acute UTI: Plan: Presented with complaints of dysuria, urinalysis dirty catch with WBCs, leuk esterase, bacteria. Urine culture growing pansensitive E. coli. Continue ceftriaxone for now. (4) Metastatic breast cancer: Plan: Diagnosed with estrogen receptor positive HER2 negative breast cancer in November 2019. Underwent bilateral mastectomies in December 2019 with negative lymph nodes. Follow-up PET scan showed bony metastatic disease, with biopsy consistent with breast cancer primary with lobular carcinoma. Follows with Dr. Cole in the cancer [facility]. Was recommended to have MRI brain and most recent oncology documentation; will order MRI brain without contrast given FREDDY. (5) Malnutrition: Plan: Patient self-reports about a month of poor p.o. intake, only being able to tolerate clear liquids due to decreased appetite as well as nausea and emesis with most solid foods. Marinol somewhat helpful so we will continue this twice daily. Nutrition consult ordered. Brain MRI for evaluation of mets as a possible cause of weakness and nausea. Continue PPI for GERD. (6) Diabetes mellitus: Plan: A1c of 5.5. Sliding scale insulin ordered. (7) GERD (gastroesophageal reflux disease): Plan: See above Plan CODE STATUS: DNR/DNI FEN: Full liquid diet DVT prophylaxis: Heparin 5000 units every 8 hours Dispo: Med/Surg Admission and Anticipated Discharge Date Admission Date: March 20, 2022 Subjective No acute events overnight. Patient and son report that oncologist recommended having "some scans" while in the hospital. She does not report any pain or burning with urination today. She reports that her appetite is somewhat better today as compared to yesterday. She reports that the Marinol does seem to help somewhat with her appetite. Review of Systems Constitutional: no fever and no chills Respiratory: no cough and no dyspnea Cardiovascular: no chest pain and no palpitations Gastrointestinal: no abdominal pain, no nausea and no vomiting Positive early satiety Physical Exam Constitutional: WD/WN, vitals as above Respiratory: normal respiratory effort, lungs clear to auscultation Cardiovascular: RRR, no murmur, no edema Gastrointestinal (Abdomen): normal bowel sounds, soft, nontender, no he patosplenomegaly Skin: no rashes, warm and dry Psychiatric: A+Ox3, euthymic affect Results & Data Results & Data ([facility]) Vital Signs (Past 12 Hours) Vital Signs Temp Pulse Resp BP Pulse Ox O2 Del Method 03/21/22 19:35 Room Air 03/21/22 22:56 36.7 C 68 18 102/61 95 Room Air PG Care Time/CCT Total # of Minutes Spent Total Time Spent with Patient: Total time spent is greater than 50% in coordination of care (as documented) at patient's floor/unit and/or counseling patient: Coding Level of Care Code 81302 Subseq Hosp Care Lvl 3 Diagnoses FREDDY (acute kidney injury) N17.9 Weakness R53.1 Acute UTI N39.0 Metastatic breast cancer C50.919 Malnutrition E46 Diabetes mellitus E11.9 GERD (gastroesophageal reflux disease) K21.9
[2022-03-22] MEDS ORDERED: SODIUM CHLORIDE 0.9% 1000ML 1,000 ML IV SCH (07:30)
[2022-03-22 07:58] LABS: Hematocrit (blood only) 24.7 % (34.1-44.9); Hemoglobin 8.2 g/dl (12.0-16.0); Mean Corpuscular Hemoglobin 33.1 pg (25.0-34.0); Mean Corpuscular Hgb Conc 33.2 g/dL (32.0-36.0); Mean Corpuscular Volume 99.6 fL (80.0-100.0); Mean Platelet Volume 9.8 fL (9.4-12.3); Platelet Count 171 K/uL (130-400); RDW Coefficient of Variation 17.6 % (11.5-14.5); RDW Standard Deviation 64.4 fL (36.4-46.3); Red Blood Count 2.48 M/uL (3.93-5.22); White Blood Count 2.83 K/ul (4.8-10.8)
[2022-03-22 08:38] LABS: BUN Creatinine Ratio 10.8 (10-20); Creatinine Clr Calc Pharmacy 16.1 ml/min; Est GFR (African American) 20.9 ml/min; Est GFR (Non-African American) 18.1 ml/min; Potassium 3.1 mmol/L (3.5-5.1)
[2022-03-22] MEDS: SERTRALINE HCL 50 MG TABLET PO SCH (08:58)
[2022-03-22] MEDS: TAMSULOSIN HCL 0.4 MG CAP PO SCH (08:58)
[2022-03-22] MEDS: allopurinoL 100 MG TAB PO SCH (08:58)
[2022-03-22] MEDS: PANTOprazole 40 MG TAB PO SCH ×2 (08:58→21:38)
[2022-03-22] MEDS: ASPIRIN 81 MG ECTAB PO SCH (08:58)
[2022-03-22] MEDS: FERROUS SULFATE 325 MG TAB PO SCH (08:58)
[2022-03-22] MEDS: ONDANSETRON 8MG OD TAB PO PRN (08:58)
[2022-03-22] MEDS: ATENOLOL 50 MG TABLET PO SCH (08:58)
[2022-03-22] MEDS: GABAPENTIN 100 MG CAP PO SCH ×2 (08:58→21:36)
[2022-03-22] MEDS: CHOLECALCIFEROL 5,000 UNITS 125 MCG TAB PO SCH (08:58)
[2022-03-22] MEDS: MAGNESIUM OXIDE 400 MG TAB PO SCH ×2 (08:58→21:37)
[2022-03-22] MEDS: cefTRIAXone SODIUM 2,000 MG in DEXTROSE 5% 50 ML IV SCH (09:17)
[2022-03-22] MEDS: POTASSIUM CHLORIDE CRTAB 20 MEQ TABCR PO SCH (10:41)
[2022-03-22] MEDS ORDERED: LORazepam 0.5 MG TAB PO ONE (14:20)
--- NOTE | 2022-03-22 17:40 | Magnetic Resonance Report ---
MRI OF THE BRAIN WITHOUT CONTRAST CLINICAL HISTORY: History of malignancy. Evaluate for metastatic disease. COMPARISON STUDY: Sinus CT June 10, 2013. PET/CT January 23, 2020. TECHNIQUE: Utilizing a 1.5 Allyson magnet and dedicated coil, multiplanar, multiecho imaging of the bra in was performed without IV contrast. No intravenous contrast was administered given renal insufficie ncy. FINDINGS: There are no foci of restricted diffusion to suggest acute infarct. No acute intracranial h emorrhage, midline shift or mass effect is present. Moderate atrophy is noted. Mild white matter T2 h yperintense foci suggest small vessel disease. No intracranial masses are identified on this unenhanc ed exam. Evaluation for parenchymal metastases is unremarkable on this study but there is no evidence for intracranial metastatic disease. Note is made of multifocal marrow replacement within the calvar ium, skull base and visualized cervical spine on sagittal T1-weighted sequence. This represents skele stephenie metastatic disease. IMPRESSION: 1. No acute intracranial findings. 2. No parenchymal metastases identified on unenhanced exam. 3. Multifocal marrow replacement consistent with skeletal metastatic disease. ACT 112: Negative or not required by law. Electronically signed by: Gerald Krishnamurthy M.D. 03/22/2022 5:38 PM
[2022-03-22] MEDS ORDERED: DEXTROSE 50% 50 ML SYRINGE IV PRN (18:52)
[2022-03-22] MEDS ORDERED: CARBOHYDRATES FOR HYPOGLYCEMIA PO PRN (18:52)
[2022-03-22] MEDS ORDERED: GLUCOSE 40% GEL 15 GM TUBE PO PRN (18:52)
[2022-03-22] MEDS ORDERED: GLUCAGON FOR INJ 1 MG VIAL SQ PRN (18:52)
[2022-03-22] MEDS ORDERED: GLUCOSE 10 TAB/TUBE PO PRN (18:52)
[2022-03-22] MEDS: INSULIN ASPART PER UNIT SC SCH (21:52)
[2022-03-23] MEDS: HEPARIN SOD 5,000 UNIT/0.5 ML VIAL SQ SCH ×3 (05:54→22:16)
[2022-03-23 06:45] LABS: Basophils # (auto) 0.02 K/uL (0-0.2); Basophils % (auto) 0.9 %; Eosinophils # (auto) 0.02 K/uL (0-0.50); Eosinophils % (auto) 0.9 %; Hematocrit (blood only) 25.9 % (34.1-44.9); Hemoglobin 8.3 g/dl (12.0-16.0); Immature Granulocytes # (auto) 0.01 K/uL (0.00-0.02); Immature Granulocytes % (auto) 0.4 %; Lymphocytes % (auto) 17.8 %; Mean Corpuscular Hemoglobin 32.7 pg (25.0-34.0); Mean Platelet Volume 9.9 fL (9.4-12.3); Monocytes # (auto) 0.24 K/uL (0.24-0.82); Monocytes % (auto) 10.7 %; Neutrophils # (auto) 1.56 K/uL (1.4-6.5); Neutrophils % (auto) 69.3 %; Platelet Count 144 K/uL (130-400); RDW Coefficient of Variation 17.6 % (11.5-14.5); RDW Standard Deviation 65.8 fL (36.4-46.3); Red Blood Count 2.54 M/uL (3.93-5.22); White Blood Count 2.25 K/ul (4.8-10.8)
[2022-03-23 07:03] LABS: BUN Creatinine Ratio 10.3 (10-20); Est GFR (Non-African American) 20.8 ml/min; Magnesium 1.8 mg/dl (1.7-2.4); Potassium 3.3 mmol/L (3.5-5.1)
--- NOTE | 2022-03-23 07:39 | Hospitalist Progress Note ---
Date of Service March 23, 2022 Assessment & Plan (1) FREDDY (acute kidney injury): Plan: 82-year-old female past medical history significant for metastatic breast cancer, non-small cell lung cancer, CKD with a baseline creatinine of 1.7, nephrolithiasis, diabetes, hypertension admitted for weakness and FREDDY on CKD, noted to have UTI on admission. FREDDY on CKD: Patient's baseline creatinine is around 1.7. On admission patient with a creatinine of 3.0, which is since down trended to 2.14 with gentle IV fluids. We will continue IV fluids. Prerenal FREDDY given history of poor p.o. intake for over a month at this point, especially in the setting of improvement with IV fluids. Daily BMP. (2) Weakness: Plan: Likely secondary to FREDDY, UTI. PT and OT consults. MRI brain did not show any evidence of brain metastasis, however it did show skeletal metastatic disease. (3) Acute UTI: Plan: Presented with complaints of dysuria on admission, urinalysis dirty catch with WBCs, leuk esterase, bacteria. Urine culture growing pansensitive E. coli. Continue ceftriaxone. (4) Metastatic breast cancer: Plan: Diagnosed with estrogen receptor positive HER2 negative breast cancer in November 2019. Underwent bilateral mastectomies in December 2019 with negative lymph nodes. Follow-up PET scan showed bony metastatic disease, with biopsy consistent with breast cancer primary with lobular carcinoma. [facility] Was recommended to have MRI brain and most recent oncology documentation; negative for brain metastasis. (5) Malnutrition: Plan: Patient self-reports about a month of poor p.o. intake, only being able to tolerate clear liquids due to decreased appetite as well as nausea and emesis with most solid foods. Continue Marinol BID, mirtazapine nightly. Nutrition consult ordered. Brain MRI for evaluation of mets as a possible cause of weakness and nausea; negative. Continue PPI for GERD. (6) Calf pain: Plan: Reported calf pain this morning. DVT study negative. (7) Sacral wound: Plan: Chronic. Wound care consult placed. Pressure offloading and routine wound care. (8) Diabetes mellitus: Plan: A1c of 5.5. Sliding scale insulin ordered. (9) GERD (gastroesophageal reflux disease): Plan: See above (10) Hypokalemia: Plan: K 3.3 today. KCl supplementation increased to 40meq PO BID. (11) Hypomagnesemia: Plan: Mg 1.8 today. Continue mag oxide 400mg PO BID. Plan CODE STATUS: DNR/DNI FEN: DM2 easy to chew diet; reports some mouth pain, continue to use Magic Mouthwash. No mouth sores seen DVT prophylaxis: Heparin 5000 units every 8 hours Dispo: Med/Surg Admission and Anticipated Discharge Date Admission Date: March 20, 2022 Subjective No acute events overnight. Today patient reports pain in her right calf. She did not enjoy breakfast very much because it was cream of wheat, which she does not like. However, she tolerated dinner well last night without abdominal pain or nausea/vomiting. She reports having a sore sacral area, and reports that she has had an ulcer there in the past. She reported that her tongue is sore today. Review of Systems Constitutional: no fever and no chills Respiratory: no cough and no dyspnea Cardiovascular: no chest pain and no palpitations Gastrointestinal: no abdominal pain, no nausea and no vomiting Physical Exam Constitutional: WD/WN, vitals as above ENMT: No sores noted on exam of mouth today Respiratory: normal respiratory effort, lungs clear to auscultation Cardiovascular: RRR, no murmur, no edema Gastrointestinal (Abdomen): normal bowel sounds, soft, nontender, no hepatosplenomegaly Skin: no rashes, warm and dry Psychiatric: A+Ox3, euthymic affect Results & Data Results & Data ([facility]) Vital Signs (Past 12 Hours) Vital Signs O2 Del Method 03/22/22 21:35 Room Air PG Care Time/CCT Total # of Minutes Spent Total Time Spent with Patient: Total time spent is greater than 50% in coordination of care (as documented) at patient's floor/unit and/or counseling patient: Coding Level of Care Code 20917 Subseq Hosp Care Lvl 3 Diagnoses FREDDY (acute kidney injury) N17.9 Weakness R53.1 Acute UTI N39.0 Metastatic breast cancer C50.919 Malnutrition E46 Calf pain M79.669 Sacral wound S31.000A Diabetes mellitus E11.9 GERD (gastroesophageal reflux disease) K21.9 Hypokalemia E87.6 Hypomagnesemia E83.42
[2022-03-23] MEDS: ASPIRIN 81 MG ECTAB PO SCH (08:48)
[2022-03-23] MEDS: allopurinoL 100 MG TAB PO SCH (08:48)
[2022-03-23] MEDS: CHOLECALCIFEROL 5,000 UNITS 125 MCG TAB PO SCH (08:49)
[2022-03-23] MEDS: GABAPENTIN 100 MG CAP PO SCH ×2 (08:49→20:26)
[2022-03-23] MEDS: POTASSIUM CHLORIDE CRTAB 20 MEQ TABCR PO SCH ×2 (08:49→20:28)
[2022-03-23] MEDS: PANTOprazole 40 MG TAB PO SCH ×2 (08:49→20:27)
[2022-03-23] MEDS: TAMSULOSIN HCL 0.4 MG CAP PO SCH (08:49)
[2022-03-23] MEDS: FERROUS SULFATE 325 MG TAB PO SCH (08:49)
[2022-03-23] MEDS: SERTRALINE HCL 50 MG TABLET PO SCH (08:49)
[2022-03-23] MEDS: MAGNESIUM OXIDE 400 MG TAB PO SCH ×2 (08:49→20:27)
[2022-03-23] MEDS: INSULIN ASPART PER UNIT SC SCH ×4 (11:30→21:56)
[2022-03-23] MEDS: ATENOLOL 50 MG TABLET PO SCH (12:02)
--- NOTE | 2022-03-23 12:59 | Ultrasound Report ---
US venous doppler LE RT HISTORY: 82 years-old Female Eval for DVT acute pain and swelling of the right lower leg COMPARISON: None TECHNIQUE: Multiple real-time sonographic images of the right lower extremity deep venous structures were obtained assessing grayscale appearance, color and spectral flow. FINDINGS: Normal flow, compressibility, phasicity and augmentation. IMPRESSION: No sonographic evidence of deep venous thrombosis. ACT 112: Negative or not required by law. The above report was generated using voice recognition software. It may contain grammatical, syntax o r spelling errors. Electronically signed by: Esequiel Phoenix M.D. 03/23/2022 12:57 PM
[2022-03-23] MEDS ORDERED: SODIUM CHLORIDE 0.9% 1000ML 1,000 ML IV SCH (13:00)
[2022-03-23] MEDS: cefTRIAXone SODIUM 2,000 MG in DEXTROSE 5% 50 ML IV SCH (13:10)
[2022-03-23 17:47] LABS: Anion Gap 6.1 (3-11)
[2022-03-23] MEDS: ONDANSETRON 8MG OD TAB PO PRN (22:34)
[2022-03-24] MEDS: HEPARIN SOD 5,000 UNIT/0.5 ML VIAL SQ SCH ×3 (06:14→21:04)
[2022-03-24] MEDS: GABAPENTIN 100 MG CAP PO SCH ×2 (08:36→21:02)
[2022-03-24] MEDS: CHOLECALCIFEROL 5,000 UNITS 125 MCG TAB PO SCH (08:36)
[2022-03-24] MEDS: SERTRALINE HCL 50 MG TABLET PO SCH (08:36)
[2022-03-24] MEDS: MAGNESIUM OXIDE 400 MG TAB PO SCH (08:36)
[2022-03-24] MEDS: PANTOprazole 40 MG TAB PO SCH ×2 (08:36→21:02)
[2022-03-24] MEDS: POTASSIUM CHLORIDE CRTAB 20 MEQ TABCR PO SCH (08:37)
[2022-03-24] MEDS: TAMSULOSIN HCL 0.4 MG CAP PO SCH (08:37)
[2022-03-24] MEDS: ASPIRIN 81 MG ECTAB PO SCH (08:37)
[2022-03-24] MEDS: FERROUS SULFATE 325 MG TAB PO SCH (08:37)
[2022-03-24] MEDS: allopurinoL 100 MG TAB PO SCH (08:37)
[2022-03-24] MEDS: ATENOLOL 50 MG TABLET PO SCH (08:40)
[2022-03-24] MEDS: INSULIN ASPART PER UNIT SC SCH ×4 (09:08→20:38)
[2022-03-24] MEDS: cefTRIAXone SODIUM 2,000 MG in DEXTROSE 5% 50 ML IV SCH (09:09)
[2022-03-24 10:02] LABS: Basophils # (auto) 0.04 K/uL (0-0.2); Basophils % (auto) 1.3 %; Eosinophils # (auto) 0.04 K/uL (0-0.50); Eosinophils % (auto) 1.3 %; Hematocrit (blood only) 29.1 % (34.1-44.9); Hemoglobin 9.4 g/dl (12.0-16.0); Immature Granulocytes # (auto) 0.01 K/uL (0.00-0.02); Immature Granulocytes % (auto) 0.3 %; Lymphocytes # (auto) 0.46 K/uL (1.2-3.4); Lymphocytes % (auto) 15.2 %; Mean Corpuscular Hemoglobin 32.8 pg (25.0-34.0); Mean Corpuscular Hgb Conc 32.3 g/dL (32.0-36.0); Mean Corpuscular Volume 101.4 fL (80.0-100.0); Monocytes # (auto) 0.35 K/uL (0.24-0.82); Monocytes % (auto) 11.6 %; Neutrophils # (auto) 2.13 K/uL (1.4-6.5); Neutrophils % (auto) 70.3 %; Platelet Count 195 K/uL (130-400); RDW Coefficient of Variation 17.8 % (11.5-14.5); RDW Standard Deviation 66.9 fL (36.4-46.3); Red Blood Count 2.87 M/uL (3.93-5.22); White Blood Count 3.03 K/ul (4.8-10.8)
[2022-03-24 10:32] LABS: BUN Creatinine Ratio 9.2 (10-20); Calcium 8.4 mg/dl (8.5-10.1); Creatinine Clr Calc Pharmacy 19.8 ml/min; Est GFR (African American) 26.9 ml/min; Est GFR (Non-African American) 23.2 ml/min; Potassium 4.3 mmol/L (3.5-5.1)
--- NOTE | 2022-03-24 16:36 | Hospitalist Progress Note ---
Date of Service March 24, 2022 Assessment & Plan (1) Malnutrition: Plan: Patient self-reports about 2 months of poor PO intake, only being able to tolerate clear liquids due to decreased appetite as well as nausea and emesis with most solid foods. CT scans of abdomen/pelvis going back at least as far as December have noted gastric wall thickening. - Will stop Marinol BID, mirtazapine nightly. - Nutrition consult ordered -> Will have them follow calorie count. - Continue PPI for GERD. - Will attempt to wean all possible meds. Consider gastric emptying study. (2) Sacral wound: Plan: Chronic. - Wound care consult placed. - Pressure offloading and routine wound care. (3) FREDDY (acute kidney injury): Plan: Patient's baseline creatinine is around 1.7. On admission, patient with a creatinine of 3.0., which is since down trended to 1.95 with IV fluids. - Prerenal FREDDY given history of poor p.o. intake for over a month at this point, especially in the setting of improvement with IV fluids. - Daily BMP. - Attempt to improve PO intake as above. (4) Weakness: Plan: Likely secondary to FREDDY, UTI. - PT and OT consults. - MRI brain did not show any evidence of brain metastasis, however it did show skeletal metastatic disease. (5) Acute UTI: Plan: Presented with complaints of dysuria on admission, urinalysis dirty catch with WBCs, leuk esterase, bacteria. Urine culture grew albarran-sensitive E. coli. - Finished ceftriaxone on 03/24. (6) Metastatic breast cancer: Plan: Diagnosed with estrogen receptor-positive, HER2-negative breast cancer in November 2019. Underwent bilateral mastectomies in December 2019 with negative lymph nodes. Follow-up PET scan showed bony metastatic disease, with biopsy consistent with breast cancer primary with lobular carcinoma. Follows with Dr. Valdovinos in the cancer care [place]. - Was recommended to have MRI brain and most recent oncology documentation; negative for brain metastasis. (7) Calf pain: Plan: Reported calf pain on 03/23. DVT study negative. - Monitor (8) Diabetes mellitus: Plan: A1c of 5.5%. - Sliding scale insulin ordered. (9) GERD (gastroesophageal reflux disease): Plan: See above (10) Hypokalemia: Plan: K 3.3. - KCl supplementation increased to 40meq PO BID on 03/23. Will attempt to minimize to hopefully reduce gastritis. Plan CODE STATUS: DNR/DNI DVT prophylaxis: Heparin 5000 units every 12 hours Admission and Anticipated Discharge Date Admission Date: March 20, 2022 Subjective Feeling somewhat upset today about an infection. She is not sure where, but feels someone told her she maybe had E. coli. Otherwise, notes continued nausea and emesis. Reports she essentially regurgitates food even when it has hit her mouth. Physical Exam Constitutional: WD/WN, vitals as above Eyes: EOM intact bilaterally; no conjunctival abnormality ENMT: external ear and nose normal, oropharynx normal Neck: trachea midline, no thyromegaly normal visual inspection Respiratory: normal respiratory effort, lungs clear to auscultation no respiratory distress Cardiovascular: RRR, no murmur, no edema Gastrointestinal (Abdomen): Inspection/Auscultation: abdomen normal to inspection; abdomen not distended Musculoskeletal: no cyanosis or clubbing, extremities motor strength 5/5 Skin: no rashes, warm and dry Neurologic: moves all extremities and awake Psychiatric: Orientation: alert, oriented to person and cooperative Results & Data Results & Data ([facility]) Vital Signs (Past 12 Hours) Vital Signs Temp Pulse Resp BP BP Pulse Ox O2 Del Method 03/24/22 15:43 36.6 C 70 16 127/78 99 Room Air 03/24/22 07:45 Room Air 03/24/22 08:08 36.5 C 66 16 95/60 L 96 Room Air PG Care Time/CCT Total # of Minutes Spent Total Time Spent with Patient: Total time spent is greater than 50% in coordination of care (as documented) at patient's floor/unit and/or counseling patient: Coding Level of Care Code 05142 Subseq Hosp Care Lvl 3 Diagnoses Malnutrition E46 Sacral wound S31.000A FREDDY (acute kidney injury) N17.9 Weakness R53.1 Acute UTI N39.0 Metastatic breast cancer C50.919 Calf pain M79.669 Diabetes mellitus E11.9 GERD (gastroesophageal reflux disease) K21.9 Hypokalemia E87.6
[2022-03-25 07:09] LABS: Hematocrit (blood only) 25.2 % (34.1-44.9); Mean Corpuscular Hemoglobin 33.3 pg (25.0-34.0); Mean Corpuscular Hgb Conc 31.7 g/dL (32.0-36.0); Mean Platelet Volume 10.4 fL (9.4-12.3); Platelet Count 140 K/uL (130-400); RDW Coefficient of Variation 18.2 % (11.5-14.5); RDW Standard Deviation 69.7 fL (36.4-46.3); White Blood Count 2.21 K/ul (4.8-10.8)
[2022-03-25 07:31] LABS: BUN Creatinine Ratio 11.8 (10-20); Calcium 8.2 mg/dl (8.5-10.1); Creatinine Clr Calc Pharmacy 21.7 ml/min; Est GFR (Non-African American) 25.9 ml/min; Magnesium 1.5 mg/dl (1.7-2.4); Potassium 4.2 mmol/L (3.5-5.1)
[2022-03-25] MEDS: SERTRALINE HCL 50 MG TABLET PO SCH (08:32)
[2022-03-25] MEDS: ONDANSETRON 8MG OD TAB PO PRN (08:32)
[2022-03-25] MEDS: GABAPENTIN 100 MG CAP PO SCH ×2 (08:32→20:15)
[2022-03-25] MEDS: ATENOLOL 50 MG TABLET PO SCH (08:32)
[2022-03-25] MEDS: PANTOprazole 40 MG TAB PO SCH ×2 (08:32→20:15)
[2022-03-25] MEDS: HEPARIN SOD 5,000 UNIT/0.5 ML VIAL SQ SCH ×2 (08:33→20:16)
[2022-03-25] MEDS: INSULIN ASPART PER UNIT SC SCH ×4 (09:14→20:22)
--- NOTE | 2022-03-25 11:39 | XRay Report ---
XR sacrum coccyx min 2V HISTORY: 82 years-old Female Bony pain; longstanding sacral ulcer. Osteo? COMPARISON: CT abdomen and pelvis 03/20/2022 TECHNIQUE: 3 views of the pelvis FINDINGS: Heterogeneous appearance of the bone marrow with ill-defined sclerosis. 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 No acute fracture, di slocation or osseous erosion identified. Grade 1 anterolisthesis L4 on L5 is unchanged. IMPRESSION: 1. No acute fracture, dislocation or osseous erosion. 2. Diffuse skeletal metastasis redemonstrated. ACT 112: Negative or not required by law. The above report was generated using voice recognition software. It may contain grammatical, syntax o r spelling errors. Electronically signed by: Esequiel Phoenix M.D. 03/25/2022 11:38 AM
[2022-03-25] MEDS: ONDANSETRON 4 MG OD TAB PO SCH ×2 (12:06→16:38)
--- NOTE | 2022-03-25 14:06 | Hospitalist Progress Note ---
Date of Service March 25, 2022 Assessment & Plan (1) Malnutrition: Plan: Severe protein-calorie malnutrition. Patient self-reports about 2 months of poor PO intake, only being able to tolerate clear liquids due to decreased appetite as well as nausea and emesis with most solid foods. CT scans of abdomen/pelvis going back at least as far as December have noted gastric wall thickening. - Will stop Marinol BID, mirtazapine nightly. - Nutrition consult ordered -> Will have them follow calorie count over next 24 hours. - Continue PPI for GERD. - Will attempt to wean all possible meds. Consider gastric emptying study if no improvement. Started Zofran standing with meals today. (2) Sacral wound: Plan: Chronic. 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 Examined with wound care today. - Wound care consult placed. - Pressure offloading and routine wound care. - Ordered saccral and coccyx x-ray today to assess for issue below the surface as patient reports deeper pain. (3) FREDDY (acute kidney injury): Plan: Patient's baseline creatinine is around 1.7. CKD, Stage IV. On admission, patient with a creatinine of 3.0., which is since down trended to 1.8 with IV fluids. - Prerenal FREDDY given history of poor p.o. intake for over a month at this point, especially in the setting of improvement with IV fluids. - Daily BMP. - Attempt to improve PO intake as above. (4) Weakness: Plan: Likely secondary to FREDDY, UTI. - PT and OT consults. 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 (5) Acute UTI: Plan: Presented with complaints of dysuria on admission, urinalysis dirty catch with WBCs, leuk esterase, bacteria. Urine culture grew albarran-sensitive E. coli. - Finished ceftriaxone on 03/24. (6) Metastatic breast cancer: Plan: Diagnosed with estrogen receptor-positive, HER2-negative breast cancer in November 2019. Underwent bilateral mastectomies in December 2019 with negative lymph nodes. Follow-up PET scan showed bony metastatic disease, with biopsy consistent with breast cancer primary with lobular carcinoma. [facility] Dr[facility]. - Was recommended to have MRI brain and most recent oncology documentation; negative for brain metastasis. (7) Calf pain: Plan: Reported calf pain on 03/23. DVT study negative. - Monitor (8) Diabetes mellitus: Plan: A1c of 5.5%. - Sliding scale insulin ordered. Sugars have been 100 - 105 over last 24 hours. (9) GERD (gastroesophageal reflux disease): Plan: See above (10) Hypokalemia: Plan: K 3.3 earlier this admission. - KCl supplementation increased to 40meq PO BID on 03/23. Will attempt to minimize to hopefully reduce gastritis. Plan CODE STATUS: DNR/DNI DVT prophylaxis: Heparin 5000 units every 12 hours Admission and Anticipated Discharge Date Admission Date: March 20, 2022 Subjective Still with pain under the area of the sacrum. Better PO intake today per the patient's report. Physical Exam Constitutional: WD/WN, vitals as above Eyes: EOM intact bilaterally; no conjunctival abnormality ENMT: external ear and nose normal, oropharynx normal Neck: trachea midline, no thyromegaly normal visual inspection Respiratory: normal respiratory effort, lungs clear to auscultation no respiratory distress Cardiovascular: RRR, no murmur, no edema Gastrointestinal (Abdomen): Inspection/Auscultation: abdomen normal to inspection; abdomen not distended Musculoskeletal: no cyanosis or clubbing, extremities motor strength 5/5 Skin: no rashes, warm and dry Neurologic: moves all extremities and awake Psychiatric: Orientation: alert, oriented to person and cooperative Results & Data Results & Data ([facility]) Vital Signs (Past 12 Hours) Vital Signs Temp Pulse Resp BP Pulse Ox O2 Del Method 03/25/22 08:02 36.7 C 77 16 115/70 90 Room Air PG Care Time/CCT Total # of Minutes Spent Total Time Spent with Patient: Total time spent is greater than 50% in coordination of care (as documented) at patient's floor/unit and/or counseling patient: Coding Level of Care Code 51936 Subseq Hosp Care Lvl 2 Diagnoses Malnutrition E46 Sacral wound S31.000A FREDDY (acute kidney injury) N17.9 Weakness R53.1 Acute UTI N39.0 Metastatic breast cancer C50.919 Calf pain M79.669 Diabetes mellitus E11.9 GERD (gastroesophageal reflux disease) K21.9 Hypokalemia E87.6
[2022-03-25] MEDS: MAGNESIUM SULFATE / D5W 1 GM/100 ML BAG IV SCH ×4 (14:29→20:14)
[2022-03-26] MEDS: ONDANSETRON 4 MG OD TAB PO SCH ×3 (07:43→16:47)
[2022-03-26 08:00] LABS: Mean Platelet Volume 10.2 fL (9.4-12.3); Platelet Count 129 K/uL (130-400); White Blood Count 2.77 K/ul (4.8-10.8)
[2022-03-26 08:27] LABS: BUN Creatinine Ratio 14.9 (10-20); Calcium 8.5 mg/dl (8.5-10.1); Creatinine Clr Calc Pharmacy 22.2 ml/min; Est GFR (African American) 30.9 ml/min; Est GFR (Non-African American) 26.6 ml/min; Magnesium 2.2 mg/dl (1.7-2.4); Mean Corpuscular Hemoglobin 32.8 pg (25.0-34.0); Mean Corpuscular Volume 102.5 fL (80.0-100.0); Potassium 3.8 mmol/L (3.5-5.1); RDW Coefficient of Variation 17.8 % (11.5-14.5); RDW Standard Deviation 67.3 fL (36.4-46.3); Red Blood Count 2.44 M/uL (3.93-5.22)
[2022-03-26] MEDS: SERTRALINE HCL 50 MG TABLET PO SCH (08:30)
[2022-03-26] MEDS: PANTOprazole 40 MG TAB PO SCH ×2 (08:30→20:56)
[2022-03-26] MEDS: ATENOLOL 50 MG TABLET PO SCH (08:30)
[2022-03-26] MEDS: GABAPENTIN 100 MG CAP PO SCH ×2 (08:30→20:55)
[2022-03-26] MEDS: HEPARIN SOD 5,000 UNIT/0.5 ML VIAL SQ SCH ×2 (08:30→20:56)
[2022-03-26] MEDS: INSULIN ASPART PER UNIT SC SCH ×4 (08:41→20:51)
--- NOTE | 2022-03-26 13:54 | Magnetic Resonance Report ---
MR pelvis wo con HISTORY: 82 years-old Female SACRUM WOUND chronic sacral decubitus ulcer. Clinical concern for osteo myelitis. History of lung and breast cancer. COMPARISON: Sacral radiographs 03/25/2022, CT abdomen and pelvis 03/20/2022 TECHNIQUE: Multiplanar multisequence MRI of the pelvis was obtained without the use of IV contrast. FINDINGS: Motion degraded exam. Grade 1 anterolisthesis L4 on L5 is likely on a degenerative basis. Moderate L4 -L5 central canal stenosis. No acute intra-abdominal or intrapelvic abnormality identified. The liver appears to be prominent in size. Fat filled periumbilical hernia. Presacral edema with small amount of free fluid. Multifocal osteoblastic skeletal metastasis redemons trated. No acute pathologic fracture identified. Subcutaneous edema within the upper gluteal cleft wi thout discrete ulcer or abscess identified. No sacral coccygeal erosive changes identified. Edema is also within the bilateral iliacs musculature. IMPRESSION: 1. Multifocal osteoblastic skeletal metastasis redemonstrated without acute pathologic fracture ident ified. 2. Small volume of free pelvic fluid with presacral edema. 3. No evidence of sacrococcygeal osteomyelitis. ACT 112: Negative or not required by law. The above report was generated using voice recognition software. It may contain grammatical, syntax o r spelling errors. Electronically signed by: Esequiel Phoenix M.D. 03/26/2022 1:53 PM
--- NOTE | 2022-03-26 15:16 | Hospitalist Progress Note ---
Date of Service March 26, 2022 Assessment & Plan (1) Malnutrition: Plan: Severe protein-calorie malnutrition. Patient self-reports about 2 months of poor PO intake, only being able to tolerate clear liquids due to decreased appetite as well as nausea and emesis with most solid foods. CT scans of abdomen/pelvis going back at least as far as December have noted gastric wall thickening. - Will stop Marinol BID, mirtazapine nightly. - Nutrition consult ordered -> Will have them follow calorie count over next 24 hours. - Continue PPI for GERD. - Will attempt to wean all possible meds. Started Zofran standing with meals on 03/25. Definitely improving overall. (2) Sacral wound: Plan: Chronic. 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 Examined with wound care today. - Wound care consult placed. - Pressure offloading and routine wound care. 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 No sign of infection. Will trial topical lidocaine patches over both bony prominences. (3) FREDDY (acute kidney injury): Plan: Patient's baseline creatinine is around 1.7. CKD, Stage IV. On admission, patient with a creatinine of 3.0., which is since down trended to 1.8 with IV fluids. - Prerenal FREDDY given history of poor p.o. intake for over a month at this point, especially in the setting of improvement with IV fluids. - Daily BMP. (4) Weakness: Plan: Likely secondary to FREDDY, UTI. - PT and OT consults. 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 (5) Acute UTI: Plan: Presented with complaints of dysuria on admission, urinalysis dirty catch with WBCs, leuk esterase, bacteria. Urine culture grew albarran-sensitive E. coli. - Finished ceftriaxone on 03/24. (6) Metastatic breast cancer: Plan: Diagnosed with estrogen receptor-positive, HER2-negative breast cancer in November 2019. Underwent bilateral mastectomies in December 2019 with negative lymph nodes. Follow-up PET scan showed bony metastatic disease, with biopsy consistent with breast cancer primary with lobular carcinoma. Follows with Dr. Vald[facility]. - Was recommended to have MRI brain and most recent oncology documentation; negative for brain metastasis. (7) Calf pain: Plan: Reported calf pain on 03/23. DVT study negative. - Monitor (8) Diabetes mellitus: Plan: A1c of 5.5%. - Sliding scale insulin ordered. Sugars have been 100 - 105 over last 24 hours. (9) GERD (gastroesophageal reflux disease): Plan: See above (10) Hypokalemia: Plan: K 3.3 earlier this admission. - KCl supplementation increased to 40meq PO BID on 03/23. Will attempt to minimize to hopefully reduce gastritis. Plan CODE STATUS: DNR/DNI DVT prophylaxis: Heparin 5000 units every 12 hours Admission and Anticipated Discharge Date Admission Date: March 20, 2022 Subjective Doing well today. Pain in sacrum is pretty stable. Otherwise improving. Physical Exam Constitutional: WD/WN, vitals as above Eyes: EOM intact bilaterally; no conjunctival abnormality ENMT: external ear and nose normal, oropharynx normal Neck: trachea midline, no thyromegaly normal visual inspection Respiratory: normal respiratory effort, lungs clear to auscultation no respiratory distress Cardiovascular: RRR, no murmur, no edema Gastrointestinal (Abdomen): Inspection/Auscultation: abdomen normal to inspection; abdomen not distended Musculoskeletal: no cyanosis or clubbing, extremities motor strength 5/5 Skin: no rashes, warm and dry Neurologic: moves all extremities and awake Psychiatric: Orientation: alert, oriented to person and cooperative Results & Data Results & Data ([facility]) Vital Signs (Past 12 Hours) Vital Signs Temp Pulse Resp BP Pulse Ox O2 Del Method 03/26/22 07:21 36.5 C 70 20 102/63 95 Room Air PG Care Time/CCT Total # of Minutes Spent Total Time Spent with Patient: Total time spent is greater than 50% in coordination of care (as documented) at patient's floor/unit and/or counseling patient: Coding Level of Care Code 20774 Subseq Hosp Care Lvl 2 Diagnoses Malnutrition E46 Sacral wound S31.000A FREDDY (acute kidney injury) N17.9 Weakness R53.1 Acute UTI N39.0 Metastatic breast cancer C50.919 Calf pain M79.669 Diabetes mellitus E11.9 GERD (gastroesophageal reflux disease) K21.9 Hypokalemia E87.6
[2022-03-26] MEDS: LIDOCAINE 5% 1 PATCH TD SCH (16:47)
[2022-03-27] MEDS: GABAPENTIN 100 MG CAP PO SCH ×2 (08:44→21:10)
[2022-03-27] MEDS: HEPARIN SOD 5,000 UNIT/0.5 ML VIAL SQ SCH ×2 (08:44→21:10)
[2022-03-27] MEDS: ONDANSETRON 4 MG OD TAB PO SCH ×3 (08:44→17:25)
[2022-03-27] MEDS: PANTOprazole 40 MG TAB PO SCH ×2 (08:44→21:10)
[2022-03-27] MEDS: LIDOCAINE 5% 1 PATCH TD SCH (08:45)
[2022-03-27] MEDS: ATENOLOL 50 MG TABLET PO SCH (08:45)
[2022-03-27] MEDS: SERTRALINE HCL 50 MG TABLET PO SCH (08:45)
[2022-03-27] MEDS: INSULIN ASPART PER UNIT SC SCH ×4 (09:04→21:05)
[2022-03-27 09:11] LABS: BUN Creatinine Ratio 16.8 (10-20); Calcium 8.8 mg/dl (8.5-10.1); Creatinine Clr Calc Pharmacy 22.3 ml/min; Est GFR (African American) 31.1 ml/min; Est GFR (Non-African American) 26.8 ml/min; Magnesium 1.7 mg/dl (1.7-2.4); Potassium 3.7 mmol/L (3.5-5.1)
[2022-03-27 10:46] LABS: Hematocrit (blood only) 27.3 % (34.1-44.9); Hemoglobin 8.6 g/dl (12.0-16.0); Mean Corpuscular Hemoglobin 33.1 pg (25.0-34.0); Mean Corpuscular Hgb Conc 31.5 g/dL (32.0-36.0); Mean Platelet Volume 10.7 fL (9.4-12.3); Platelet Count 145 K/uL (130-400); RDW Coefficient of Variation 18.3 % (11.5-14.5); RDW Standard Deviation 69.3 fL (36.4-46.3); White Blood Count 3.14 K/ul (4.8-10.8)
--- NOTE | 2022-03-27 17:30 | Hospitalist Progress Note ---
Date of Service March 27, 2022 Assessment & Plan (1) Malnutrition: Plan: Severe protein-calorie malnutrition. Patient self-reports about 2 months of poor PO intake, only being able to tolerate clear liquids due to decreased appetite as well as nausea and emesis with most solid foods. CT scans of abdomen/pelvis going back at least as far as December have noted gastric wall thickening. - Will stop Marinol BID, mirtazapine nightly. - Nutrition consult ordered -> Will have them follow calorie count over next 24 hours. - Continue PPI for GERD. - Will attempt to wean all possible meds. Started Zofran standing with meals on 03/25. Definitely improving overall. Better appetite and eating more meals. (2) Sacral wound: Plan: Chronic. 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 Examined with wound care today. - Wound care consult placed. - Pressure offloading and routine wound care. 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 No sign of infection. Will trial topical lidocaine patches over both bony prominences. Seem to be helping some. (3) FREDDY (acute kidney injury): Plan: Patient's baseline creatinine is around 1.7. CKD, Stage IV. On admission, patient with a creatinine of 3.0., which is since down trended to 1.8 with IV fluids. - Prerenal FREDDY given history of poor p.o. intake for over a month at this point, especially in the setting of improvement with IV fluids. - Daily BMP. Back to baseline today. (4) Weakness: Plan: Likely secondary to FREDDY, UTI. - PT and OT consults. 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 (5) Acute UTI: Plan: Presented with complaints of dysuria on admission, urinalysis dirty catch with WBCs, leuk esterase, bacteria. Urine culture grew albarran-sensitive E. coli. - Finished ceftriaxone on 03/24. (6) Metastatic breast cancer: Plan: Diagnosed with estrogen receptor-positive, HER2-negative breast cancer in November 2019. Underwent bilateral mastectomies in December 2019 with negative lymph nodes. Follow-up PET scan showed bony metastatic disease, with biopsy consistent with breast cancer primary with lobular carcinoma. Follows with Dr. Valdovinos in the cancer care [place]. - Was recommended to have MRI brain and most recent oncology documentation; negative for brain metastasis. (7) Calf pain: Plan: Reported calf pain on 03/23. DVT study negative. - Monitor (8) Diabetes mellitus: Plan: A1c of 5.5%. - Sliding scale insulin ordered. Sugars have been 100 - 105 over last 24 hours. (9) GERD (gastroesophageal reflux disease): Plan: See above (10) Hypokalemia: Plan: K 3.3 earlier this admission. - KCl supplementation increased to 40meq PO BID on 03/23. Will attempt to minimize to hopefully reduce gastritis. Plan CODE STATUS: DNR/DNI DVT prophylaxis: Heparin 5000 units every 12 hours Admission and Anticipated Discharge Date Admission Date: March 20, 2022 Subjective Doing well today. Still with some pain in the joints, but otherwise ok. Reports no fevers/chills, chest pain, shortness of breath, abdominal pain, nausea, or vomiting. Physical Exam Constitutional: WD/WN, vitals as above Eyes: EOM intact bilaterally; no conjunctival abnormality ENMT: external ear and nose normal, oropharynx normal Neck: trachea midline, no thyromegaly normal visual inspection Respiratory: normal respiratory effort, lungs clear to auscultation no respiratory distress Cardiovascular: RRR, no murmur, no edema Gastrointestinal (Abdomen): Inspection/Auscultation: abdomen normal to inspection; abdomen not distended Musculoskeletal: no cyanosis or clubbing, extremities motor strength 5/5 Skin: no rashes, warm and dry Neurologic: moves all extremities and awake Psychiatric: Orientation: alert, oriented to person and cooperative Results & Data Results & Data ([facility]) Vital Signs (Past 12 Hours) Vital Signs Temp Pulse Resp BP BP Pulse Ox O2 Del Method 03/27/22 15:59 36.8 C 63 16 105/67 94 Room Air 03/27/22 08:05 36.5 C 73 16 102/64 95 Room Air PG Care Time/CCT Total # of Minutes Spent Total Time Spent with Patient: Total time spent is greater than 50% in coordination of care (as documented) at patient's floor/unit and/or counseling patient: Coding Level of Care Code 98269 Subseq Hosp Care Lvl 2 Diagnoses Malnutrition E46 Sacral wound S31.000A FREDDY (acute kidney injury) N17.9 Weakness R53.1 Acute UTI N39.0 Metastatic breast cancer C50.919 Calf pain M79.669 Diabetes mellitus E11.9 GERD (gastroesophageal reflux disease) K21.9 Hypokalemia E87.6
[2022-03-28 07:02] LABS: Hematocrit (blood only) 23.2 % (34.1-44.9); Hemoglobin 7.5 g/dl (12.0-16.0); Mean Platelet Volume 10.3 fL (9.4-12.3); Platelet Count 117 K/uL (130-400); White Blood Count 3.12 K/ul (4.8-10.8)
[2022-03-28 07:22] LABS: BUN Creatinine Ratio 18.4 (10-20); Calcium 8.7 mg/dl (8.5-10.1); Creatinine Clr Calc Pharmacy 23.6 ml/min; Est GFR (African American) 33.4 ml/min; Est GFR (Non-African American) 28.8 ml/min; Magnesium 1.4 mg/dl (1.7-2.4); Potassium 3.6 mmol/L (3.5-5.1)
[2022-03-28 08:14] LABS: Mean Corpuscular Hemoglobin 33.2 pg (25.0-34.0); Mean Corpuscular Hgb Conc 32.3 g/dL (32.0-36.0); Mean Corpuscular Volume 102.7 fL (80.0-100.0); Red Blood Count 2.26 M/uL (3.93-5.22)
[2022-03-28] MEDS: ONDANSETRON 4 MG OD TAB PO SCH ×3 (09:00→16:57)
[2022-03-28] MEDS: INSULIN ASPART PER UNIT SC SCH ×4 (09:00→20:18)
[2022-03-28] MEDS: ATENOLOL 50 MG TABLET PO SCH (09:00)
[2022-03-28] MEDS: MAGNESIUM SULFATE / D5W 1 GM/100 ML BAG IV SCH ×3 (09:00→13:53)
[2022-03-28] MEDS: PANTOprazole 40 MG TAB PO SCH ×2 (09:01→20:19)
[2022-03-28] MEDS: GABAPENTIN 100 MG CAP PO SCH ×2 (09:01→20:19)
[2022-03-28] MEDS: LIDOCAINE 5% 1 PATCH TD SCH (09:01)
[2022-03-28] MEDS: SERTRALINE HCL 50 MG TABLET PO SCH (09:01)
[2022-03-28] MEDS: HEPARIN SOD 5,000 UNIT/0.5 ML VIAL SQ SCH ×2 (09:01→20:21)
--- NOTE | 2022-03-28 15:09 | Hospitalist Progress Note ---
Date of Service March 28, 2022 Assessment & Plan (1) Malnutrition: Plan: Severe protein-calorie malnutrition. Patient self-reports about 2 months of poor PO intake, only being able to tolerate clear liquids due to decreased appetite as well as nausea and emesis with most solid foods. CT scans of abdomen/pelvis going back at least as far as December have noted gastric wall thickening. - Will stop Marinol BID, mirtazapine nightly. - Nutrition consult ordered -> Will have them follow calorie count over next 24 hours. - Continue PPI for GERD. - Will attempt to wean all possible meds. Started Zofran standing with meals on 03/25. Definitely improving overall. Better appetite and eating more meals. Will replete electrolytes PRN. (2) Sacral wound: Plan: Chronic. Pressure ulcer of proximal middle coccyx, stage 3, POA - Wound care consult placed. - Pressure offloading and routine wound care. 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 No sign of infection. Will trial topical lidocaine patches over both bony prominences. Seem to be helping some. (3) FREDDY (acute kidney injury): Plan: Patient's baseline creatinine is around 1.7. CKD, Stage IV. On admission, patient with a creatinine of 3.0., which is since down trended to 1.8 with IV fluids. - Prerenal FREDDY given history of poor p.o. intake for over a month at this point, especially in the setting of improvement with IV fluids. - Daily BMP. Back to baseline today. (4) Weakness: Plan: Likely secondary to FREDDY, UTI. - PT and OT consults. 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 (5) Acute UTI: Plan: Presented with complaints of dysuria on admission, urinalysis dirty catch with WBCs, leuk esterase, bacteria. Urine culture grew albarran-sensitive E. coli. - Finished ceftriaxone on 03/24. (6) Metastatic breast cancer: Plan: Diagnosed with estrogen receptor-positive, HER2-negative breast cancer in November 2019. Underwent bilateral mastectomies in December 2019 with negative lymph nodes. Follow-up PET scan showed bony metastatic disease, with biopsy consistent with breast cancer primary with lobular carcinoma. Follows with Dr. Valdovinos [facility]. - Was recommended to have MRI brain and most recent oncology documentation; negative for brain metastasis. (7) Calf pain: Plan: Reported calf pain on 03/23. DVT study negative. - Monitor (8) Diabetes mellitus: Plan: A1c of 5.5%. - Sliding scale insulin ordered. Sugars have been 100 - 120 over last 24 hours. (9) GERD (gastroesophageal reflux disease): Plan: See above (10) Hypokalemia: Plan: K 3.3 earlier this admission. - KCl supplementation increased to 40meq PO BID on 03/23. Will attempt to minimize to hopefully reduce gastritis. Plan CODE STATUS: DNR/DNI DVT prophylaxis: Heparin 5000 units every 12 hours Admission and Anticipated Discharge Date Admission Date: March 20, 2022 Subjective No major issues today. Feeling like she is continuing to eat well. Reports no fevers/chills, chest pain, shortness of breath, abdominal pain, nausea, or vomiting. Physical Exam Constitutional: WD/WN, vitals as above Eyes: EOM intact bilaterally; no conjunctival abnormality ENMT: external ear and nose normal, oropharynx normal Neck: trachea midline, no thyromegaly normal visual inspection Respiratory: normal respiratory effort, lungs clear to auscultation no respiratory distress Cardiovascular: RRR, no murmur, no edema Gastrointestinal (Abdomen): Inspection/Auscultation: abdomen normal to inspection; abdomen not distended Musculoskeletal: no cyanosis or clubbing, extremities motor strength 5/5 Skin: no rashes, warm and dry Neurologic: moves all extremities and awake Psychiatric: Orientation: alert, oriented to person and cooperative Results & Data Results & Data ([facility]) Vital Signs (Past 12 Hours) Vital Signs Temp Pulse Resp BP Pulse Ox O2 Del Method 03/28/22 14:41 36.7 C 68 19 111/65 97 Room Air 03/28/22 07:43 36.6 C 71 19 105/56 L 90 Room Air PG Care Time/CCT Total # of Minutes Spent Total Time Spent with Patient: Total time spent is greater than 50% in coordination of care (as documented) at patient's floor/unit and/or counseling patient: Coding Level of Care Code 28557 Subseq Hosp Care Lvl 2 Diagnoses Malnutrition E46 Sacral wound S31.000A FREDDY (acute kidney injury) N17.9 Weakness R53.1 Acute UTI N39.0 Metastatic breast cancer C50.919 Calf pain M79.669 Diabetes mellitus E11.9 GERD (gastroesophageal reflux disease) K21.9 Hypokalemia E87.6
[2022-03-29 08:07] LABS: Hematocrit (blood only) 23.6 % (34.1-44.9); Hemoglobin 7.5 g/dl (12.0-16.0); Mean Platelet Volume 10.4 fL (9.4-12.3); Platelet Count 118 K/uL (130-400); White Blood Count 3.31 K/ul (4.8-10.8)
[2022-03-29] MEDS: LIDOCAINE 5% 1 PATCH TD SCH (08:24)
[2022-03-29] MEDS: PANTOprazole 40 MG TAB PO SCH (08:24)
[2022-03-29] MEDS: ONDANSETRON 4 MG OD TAB PO SCH ×2 (08:24→12:01)
[2022-03-29] MEDS: HEPARIN SOD 5,000 UNIT/0.5 ML VIAL SQ SCH (08:24)
[2022-03-29] MEDS: ATENOLOL 50 MG TABLET PO SCH (08:25)
[2022-03-29] MEDS: GABAPENTIN 100 MG CAP PO SCH (08:25)
[2022-03-29] MEDS: SERTRALINE HCL 50 MG TABLET PO SCH (08:25)
[2022-03-29 08:31] LABS: Mean Corpuscular Hemoglobin 33.3 pg (25.0-34.0); Mean Corpuscular Hgb Conc 31.8 g/dL (32.0-36.0); Mean Corpuscular Volume 104.9 fL (80.0-100.0); RDW Coefficient of Variation 18.6 % (11.5-14.5); RDW Standard Deviation 71.3 fL (36.4-46.3); Red Blood Count 2.25 M/uL (3.93-5.22)
[2022-03-29 08:41] LABS: BUN Creatinine Ratio 16.1 (10-20); Calcium 8.9 mg/dl (8.5-10.1); Creatinine Clr Calc Pharmacy 22.2 ml/min; Est GFR (African American) 30.9 ml/min; Est GFR (Non-African American) 26.6 ml/min; Magnesium 1.9 mg/dl (1.7-2.4); Phosphorus 3.2 mg/dl (2.5-4.9); Potassium 3.7 mmol/L (3.5-5.1)
[2022-03-29] MEDS: INSULIN ASPART PER UNIT SC SCH ×2 (09:25→13:02)
[2022-03-29 10:09] LABS: Ferritin 518.2 ng/ml (8-388)
[2022-03-29 10:14] LABS: Folate (Folic Acid) 4.06 ng/ml (>5.38)
[2022-03-29] MEDS ORDERED: IRON SUCROSE 400 MG in SODIUM CHLORIDE 0.9% 250 ML IV ONE (11:00)
[2022-03-29 14:39] VITALS: PULSE 73; TEMP 97.5; O2SAT 93
[2022-03-29 14:46] VITALS: BP 107/65
--- NOTE | 2022-03-29 15:22 | Discharge Summary ---
Date of Service March 29, 2022 Admission HPI Per Admitting Provider 82 yo female reports having a 1 month history of no longer having an appetite. She reports having lost 60 pounts. She feels like she is wasting away for the past month. She reports no improement from her recent discharge. Patient reports being sent back to the hospital due to her poor kidney numbers. Principal Diagnosis Acute kidney injury from dehydration due medications Discharge Exam Constitutional WD/WN, vitals as above Eyes EOM intact bilaterally; no conjunctival abnormality ENMT external ear and nose normal, oropharynx normal Neck trachea midline, no thyromegaly normal visual inspection Respiratory normal respiratory effort, lungs clear to auscultation no respiratory distress Cardiovascular RRR, no murmur, no edema Gastrointestinal (Abdomen) Inspection/Auscultation: abdomen normal to inspection; abdomen not distended Musculoskeletal no cyanosis or clubbing, extremities motor strength 5/5 Skin no rashes, warm and dry Neurologic moves all extremities and awake Psychiatric Orientation: alert, oriented to person and cooperative Discharge Data Allergies Allergy/AdvReac Type Severity Reaction Status Date / Time cefuroxime Allergy Intermediate petechaie Verified 03/20/22 19:46 influenza virus vaccine, AdvReac Intermediate swollen Verified 03/20/22 19:46 specific arm for months tetanus toxoid, adsorbed AdvReac Intermediate swollen Verified 03/20/22 19:46 arm for months Consultations 03/20/22 17:38 ED Decision to Admit Stat Ordered Studies 03/20/22 17:10 CT abd pelvis wo con Stat 03/22/22 13:20 MR brain wo con Routine 03/23/22 10:07 US venous doppler LE RT Urgent 03/26/22 MR pelvis wo con Routine Hospital Course (1) Malnutrition: Severe protein-calorie malnutrition. Patient self-reports about 2 months of poor PO intake, only being able to tolerate clear liquids due to decreased appetite as well as nausea and emesis with most solid foods. CT scans of abdomen/pelvis going back at least as far as December have noted gastric wall thickening. - Stopped Marinol BID, mirtazapine nightly. - Nutrition consult ordered -> Calorie counts improved throughout stay. - Continue PPI for GERD. - Attempted to wean all possible meds. Started Zofran standing with meals on 03/25. Definitely improved overall. Better appetite and eating more meals. On discharge, electrolytes stable without needing repletion. Son was very interested in reducing/minimizing medications. Truthfully, off her Ibrance and a number of other meds, her appetite was great, and she was taking in great PO intake. (2) FREDDY (acute kidney injury): Patient's baseline creatinine is around 1.7. CKD, Stage IV. On admission, patient with a creatinine of 3.0., which is since down trended to 1.8 with IV fluids. - Prerenal FREDDY given history of poor p.o. intake for over a month at this point & with diuretic. - Daily BMP. Back to baseline by discharge. ---> (Was taking furosemide for ankle swelling. I stopped this because there is no hx of CHF that I see, it is dehydrating her, and causing low potassium. Discharged with LOU hose. If swelling goes higher than ankles or other signs/symptoms of generalized CHF, may need to restart.) (3) Anemia: Chronic, though mildly worse close to discharge. No indication of bleeding. Anemia labs showed B12 & folate deficiency + some iron deficiency. - Received Venofer x 1 dose while inpatient. Can get more with oncology in coming weeks if needed. -> STOPPED oral iron on discharge because I think it was contributing to her GI upset. Given terrible absorption of oral iron, defer restarting this for now. - Discharged on oral folic acid and B12. - O/p f/u (4) Sacral wound: Chronic. Pressure ulcer of proximal middle coccyx, stage 3, POA - Wound care consult placed. - Pressure offloading and routine wound care. 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 No sign of infection. Trialed topical lidocaine patches over both bony prominences. Seem to be helping some. (5) Weakness: Likely secondary to FREDDY, UTI. 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 - A lot stronger than on admission. Safe to return home per patient and son. (6) Acute UTI: Presented with complaints of dysuria on admission, urinalysis dirty catch with WBCs, leuk esterase, bacteria. Urine culture grew albarran-sensitive E. coli. - Finished ceftriaxone on 03/24. (7) Metastatic breast cancer: Diagnosed with estrogen receptor-positive, HER2-negative breast cancer in November 2019. Underwent bilateral mastectomies in December 2019 with negative lymph nodes. Follow-up PET scan showed bony metastatic disease, with biopsy consistent with breast cancer primary with lobular carcinoma. Follows with Dr. Valdovinos in the [facility]. - Was recommended to have MRI brain and most recent oncology documentation; negative for brain metastasis. - Close follow up. (8) Calf pain: Reported calf pain on 03/23. DVT study negative. - Monitor (9) Diabetes mellitus: A1c of 5.5%. - Sliding scale insulin ordered. -> STOP metformin on discharge. A1c's below goal for 82 yo, and it could be causing some of her GI distress. (10) GERD (gastroesophageal reflux disease): See above (11) Hypokalemia: K 3.3 earlier this admission. - KCl supplementation stopped. Without Lasix, generally didn't need it. No repletion needed in 4 days prior to discharge. Can follow up with labs at PCP office. Plan CODE STATUS: DNR/DNI DVT prophylaxis: Heparin 5000 units every 12 hours Total Time Total Time Spent Total Time Spent (In Minutes): 60 Discharge Plan Discharge Items Patient Disposition: Home - Home Health Services Reason For Visit: ACUTE KIDNEY FAILURE Discharge Diagnosis: Kidney injury from dehydration Stomach upset and nausea from medications Sacral irritation and pain from metastatic cancer Condition on Discharge: Fair Activity: Resume your previous activity Non-emergency contact: Primary Care Provider and Oncologist Call non-emergency contact if: your symptoms worsen Follow-up/Referrals: Theodora Ty CRNP [Primary Care Provider] - Maximino Valdovinos MD [Physician] - (Please call Dr. Valdovinos's office to arrange follow-up.) Diet: Regular Addtl Attending Provider Instructions: Ms. Vargas, You were admitted to the hospital with dehydration that was causing kidney injury. We held some of your medications, and you have been gradually feeling better. Your electrolytes have been doing well over the last few days, and you are eating and drinking more. This is great! You have also been having a lot of pain in the sacral area. Unfortunately, there is a spot of cancer right down on the bone there, and I think this is causing your pain. We did a lot of testing, and didn't see any sign of infection down there. You did have a mild UTI (bladder infection), but we treated this with IV antibiotics, and you don't need any more. For your leg/ankle swelling, please try to use compression stockings. If we can avoid Lasix, we can probably avoid having you take extra potassium. If the swelling continues to increase, you will need to talk to your PCP or Dr. Valdovinos about restarting both of the Lasix and the potassium. Please carefully check your medications when you get home. We have stopped *a lot* of them to avoid stomach upset. You will need to carefully check all your medications to be sure you have the right ones. Please call Dr. Valdovinos's office to arrange follow-up to be sure you are doing well. Pending Studies at Discharge: No Stand-Alone Forms: [facility], Smoking Cessation Medications and DC Order Prescriptions: New lidocaine 5 % Adhesive Patch,Medicated 1 patch transdermal QAM Qty: 15 0RF Rx Instructions: Cut in half and apply each half to bony points on bottom. ondansetron 4 mg Tablet,Disintegrating 4 mg PO AC Qty: 90 0RF Rx Instructions: Take 20 - 30 minutes before each meal (breakfast, lunch, and dinner). cyanocobalamin (vitamin B-12) 1,000 mcg capsule 1,000 mcg PO DAILY Qty: 30 0RF folic acid 1 mg tablet 1 mg PO DAILY Qty: 30 0RF Continued fulvestrant [Faslodex] 250 mg/5 mL syringe 500 mg IM .COMPLEX Rx Instructions: 500 mg IM MONTHLY; may divide dose into 2 equally divided injections; one into each buttock atenolol 50 mg tablet 50 mg PO QAM Qty: 90 3RF sertraline 50 mg tablet 50 mg PO QAM Qty: 90 3RF gabapentin 100 mg capsule 100 mg PO BID Qty: 180 3RF pantoprazole 40 mg tablet,delayed release (DR/EC) 40 mg PO BID Qty: 60 5RF tamsulosin [Flomax] 0.4 mg capsule 0.4 mg PO QAM Qty: 90 3RF azelastine 137 mcg (0.1 %) aerosol,spray 1 - 2 sprays intranasal BID PRN (Reason: congestion) Qty: 1 fexofenadine 180 mg tablet 180 mg PO DAILY PRN (Reason: Congestion) Qty: 30 acetaminophen [Tylenol Extra Strength] 500 mg Tablet 500 mg PO Q6H PRN (Reason: Pain) Discontinued Ibrance 100 mg capsule 100 mg PO QAM Rx Instructions: administer on days 1 through 21 then off 7 days furosemide 40 mg tablet 40 mg PO QAM Qty: 90 3RF metformin 500 mg tablet 500 mg PO BID Qty: 180 3RF allopurinol 100 mg tablet 100 mg PO QAM Qty: 90 3RF ondansetron HCl 8 mg tablet 8 mg PO Q8H PRN (Reason: nausea and vomiting) Qty: 30 0RF cholecalciferol (vitamin D3) 5,000 unit capsule 5,000 units PO QAM aspirin 81 mg tablet,delayed release (DR/EC) 81 mg PO QAM dronabinol [Marinol] 5 mg capsule 5 mg PO BID Qty: 60 2RF Rx Instructions: administer before lunch and evening meal/dinner potassium chloride 10 mEq tablet extended release 50 meq PO QAM Rx Instructions: 10 mEq, 5 tab daily; mirtazapine [Remeron] 15 mg tablet 15 mg PO HS PRN (Reason: Sleep) ferrous sulfate 325 mg (65 mg iron) tablet,delayed release (DR/EC) 325 mg PO QAM Rx Instructions: buying OTC Magic Mouthwash 300 mL mouthwash 5 ml mucous membrane .COMPLEX PRN (Reason: mouth sores) Rx Instructions: 5 mL mucous membrane 2-3 times a day; Benadryl 12.5 mg/5 mL oral elixir; Maalox 200 mg-200 mg-20 mg/5 mL oral suspension; Xylocaine Viscous 2 % mucosal solution;[Generic substitution ok] 1:1:1 compound Per 300 mL magnesium oxide 400 mg (241.3 mg magnesium) Tablet 400 mg PO BID Qty: 60 0RF Discharge Orders: Discharge Order (Routine); Ordered 03/29/22 Ordered By: Jim Zaragoza Admission Data Admit Date/Time: 03/20/22 18:36 Attending Provider: Jim Zaragoza Admit Provider: Collin Stovall Primary Care Provider: Theodora Ty Other Providers: Collin Stovall Other Interventions: Discharge Summary Assessment (RN) Last Done: 03/29/22 14:45 Coding Level of Care Code D/C DAY MANAGEMENT >30 MINS Diagnoses Malnutrition E46 FREDDY (acute kidney injury) N17.9 Anemia D64.9 Sacral wound S31.000A Weakness R53.1 Acute UTI N39.0 Metastatic breast cancer C50.919 Calf pain M79.669 Diabetes mellitus E11.9 GERD (gastroesophageal reflux disease) K21.9 Hypokalemia E87.6
== END 2022-03-29 15:26 | disposition home or self-care (01) | DRG 682 ==
LOC: ED 14:25 → INTOOBSV 18:36 → 3W 18:36 → SUATTDRO 18:36 → 3W 19:32
DX: T50.905A Adverse effect of unspecified drugs, medicaments and biological substances, initial encounter; K21.9 Gastro-esophageal reflux disease without esophagitis; I12.9 Hypertensive chronic kidney disease with stage 1 through stage 4 chronic kidney disease, or unspecified chronic kidney disease; Z66 Do not resuscitate; Z85.3 Personal history of malignant neoplasm of breast; E86.0 Dehydration; N17.9 Acute kidney failure, unspecified; L89.153 Pressure ulcer of sacral region, stage 3; Z88.7 Allergy status to serum and vaccine; M79.661 Pain in right lower leg; E43 Unspecified severe protein-calorie malnutrition; E87.6 Hypokalemia; N18.4 Chronic kidney disease, stage 4 (severe); N39.0 Urinary tract infection, site not specified; C79.51 Secondary malignant neoplasm of bone; Z99.81 Dependence on supplemental oxygen; E11.9 Type 2 diabetes mellitus without complications; E83.42 Hypomagnesemia; Z79.82 Long term (current) use of aspirin; Y92.019 Unspecified place in single-family (private) house as the place of occurrence of the external cause; D64.9 Anemia, unspecified; B96.20 Unspecified Escherichia coli [E. coli] as the cause of diseases classified elsewhere